=== PATIENT | male | born 1955 | race Caucasian/White ===

== ENCOUNTER → 2023-12-17 09:52 | Outpatient (REF) | payer MEDICARE, OTHER, SELFPAY ==
[2023-12-17 10:06] LABS: % Basophils 1.4 % (0-2); % Eosinophils 4.8 % (0-6); % Immature Granulocytes 7.6 % (0-0.5); % Lymphocytes 17.1 % (20.5-51.1); % Monocytes 10.8 % (1.7-9.3); % Neutrophils 58.3 % (42.2-75.2); Absolute Basophils 0.2 10^3/uL (0-0.2); Absolute Eosinophils 0.5 10^3/uL (0-0.7); Absolute Immature Granulocytes 0.9 10^3/uL (0-0.05); Absolute Lymphocytes 1.9 10^3/uL (1.2-3.4); Absolute Monocytes 1.2 10^3/uL (0.1-0.6); Absolute Neutrophils 6.6 10^3/uL (1.4-6.5); Hematocrit 39.8 % (39.0-52.0); Hemoglobin 11.8 g/dL (13.0-18.0); Mean Corp Hgb Conc. 29.6 g/dL (33.0-37.0); Mean Corpuscular Hgb 25.5 pg (27.0-31.0); Mean Platelet Volume 9.3 fL (7.4-10.4); Nucleated Red Blood Cells % 0.9 % (-); Platelet Count 549 10^3/uL (130-400); Red Blood Cell Count 4.63 10^6/uL (4.70-6.10); Red Cell Dist. Width 24.5 % (11.5-14.5); White Blood Cell Count 11.3 10^3/uL (4.8-10.8)
== END ==
LOC: OIDL 09:52
PROVIDERS: ATTENDING PHYSICIAN Nurse Practitioner Family
DX: D75.839 Thrombocytosis, unspecified (principal); D50.9 Iron deficiency anemia, unspecified
CPT/HCPCS: 85025

== ENCOUNTER → 2024-01-28 09:54 | Outpatient (REF) | payer MEDICARE, OTHER, SELFPAY ==
[2024-01-28 11:28] LABS: % Basophils 1.3 % (0-2); % Eosinophils 3.9 % (0-6); % Immature Granulocytes 0.8 % (0-0.5); % Lymphocytes 15.2 % (20.5-51.1); % Monocytes 11.6 % (1.7-9.3); % Neutrophils 67.2 % (42.2-75.2); Absolute Basophils 0.1 10^3/uL (0-0.2); Absolute Eosinophils 0.3 10^3/uL (0-0.7); Absolute Immature Granulocytes 0.1 10^3/uL (0-0.05); Absolute Lymphocytes 1.3 10^3/uL (1.2-3.4); Absolute Neutrophils 5.7 10^3/uL (1.4-6.5); Hematocrit 43.1 % (39.0-52.0); Hemoglobin 13.7 g/dL (13.0-18.0); Mean Corp Hgb Conc. 31.8 g/dL (33.0-37.0); Mean Corpuscular Hgb 29.2 pg (27.0-31.0); Mean Corpuscular Volume 91.9 fL (80.0-94.0); Mean Platelet Volume 9.7 fL (7.4-10.4); Nucleated Red Blood Cells % 0 % (-); Platelet Count 447 10^3/uL (130-400); Red Blood Cell Count 4.69 10^6/uL (4.70-6.10); Red Cell Dist. Width 25.7 % (11.5-14.5); White Blood Cell Count 8.4 10^3/uL (4.8-10.8)
[2024-01-28 13:31] LABS: Iron 54 ug/dl (49-181)
[2024-01-28 13:40] LABS: Percent Saturation 13 % (20-50); Total Iron Binding Capacity 404 ug/dl (261-462)
[2024-01-28 13:51] LABS: Anisocytosis 2+; Hypochromasia 2+; Macrocytosis 2+; Normal RBC Morphology No; Ovalocytes 1+; Poikilocytosis 1+; Stomatocytes Moderate
[2024-01-28 13:55] LABS: Ferritin 20.8 ng/ml (17.9-464.0)
== END ==
LOC: REG 09:54
PROVIDERS: ATTENDING PHYSICIAN Internal Medicine Hematology & Oncology; FAMILY PHYSICIAN Emergency Medicine
DX: D75.839 Thrombocytosis, unspecified (principal); D50.9 Iron deficiency anemia, unspecified; D72.829 Elevated white blood cell count, unspecified
CPT/HCPCS: 36415; 82728; 83540; 83550; 85025

== ENCOUNTER → 2024-02-18 08:20 | Outpatient (REF) | payer MEDICARE, OTHER, SELFPAY | LOC: HWRAD 08:20 | PROVIDERS: ATTENDING PHYSICIAN Nurse Practitioner Family; FAMILY PHYSICIAN Emergency Medicine | DX: F17.210 Nicotine dependence, cigarettes, uncomplicated (principal) | CPT/HCPCS: 71271 ==

== ENCOUNTER 2024-03-18 02:56 | Inpatient (IN) | payer MEDICARE, OTHER, SELFPAY ==
[2024-03-17] VITALS (7 sets, daily range): BP systolic 127–152; BP diastolic 70–90; PULSE 99; BMI 27.3
[2024-03-17 21:10] LABS: % Basophils 0.7 % (0-2); % Eosinophils 3.6 % (0-6); % Immature Granulocytes 0.9 % (0-0.5); % Lymphocytes 10.2 % (20.5-51.1); % Monocytes 10.1 % (1.7-9.3); % Neutrophils 74.5 % (42.2-75.2); Absolute Basophils 0.1 10^3/uL (0-0.2); Absolute Eosinophils 0.6 10^3/uL (0-0.7); Absolute Immature Granulocytes 0.2 10^3/uL (0-0.05); Absolute Lymphocytes 1.6 10^3/uL (1.2-3.4); Absolute Monocytes 1.6 10^3/uL (0.1-0.6); Hematocrit 38.3 % (39.0-52.0); Hemoglobin 12.9 g/dL (13.0-18.0); Mean Corp Hgb Conc. 33.7 g/dL (33.0-37.0); Mean Corpuscular Hgb 29.7 pg (27.0-31.0); Mean Corpuscular Volume 88.2 fL (80.0-94.0); Mean Platelet Volume 9.6 fL (7.4-10.4); Nucleated Red Blood Cells % 0.1 % (-); Platelet Count 504 10^3/uL (130-400); Red Blood Cell Count 4.34 10^6/uL (4.70-6.10); White Blood Cell Count 16.1 10^3/uL (4.8-10.8)
--- NOTE | 2024-03-17 21:18 | ED.GENMED ---
History of Present Illness
General
Chief Complaint: Chest Pain
Time Seen by Provider: 03/17/24 21:18
Travel History
Have you had any contact with someone who has COVID-19?: No
Do you have any symptoms of coronavirus? Fever > 100 degrees, chills, cough, shortness of breath, sore throat, loss of taste or smell, muscle aches, or headache?: No
History of Present Illness
History of Present Illness:
HPI: Patient presents with chest discomfort�he came in by ambulance and EMS gave nitroglycerin as well as aspirin. He states the pain worsens with a deep breath on the left side. He states he has an upcoming MRI of the chest. He feels somewhat
short of breath. However he uses CPAP for history of COPD but does not use oxygen at home.
EXAM:
GENERAL: The patient appears somewhat short of breath and uncomfortable
HEENT: Moist oral mucosa
CARDIOVASCULAR: No murmurs, normal heart rate, regular rhythm, No chest wall tenderness
PULMONARY: Mild respiratory distress, decreased breath sounds equally with wheeze noted
ABDOMEN: Soft with no peritoneal signs, no tenderness
NEUROLOGIC: Excellent strength all extremities, no coordination deficits
PSYCHIATRIC: Appropriate mental status, normal insight and judgement
EXTREMITIES: Nontender, no edema, moves all extremities equally, no calf tenderness
SKIN: No rash, no lesions
TIME OF INITIAL ENCOUNTER: 9:25 PM
NUMBER AND COMPLEXITY OF PROBLEMS ADDRESSED AT THE ENCOUNTER
� Chronic conditions affecting care: High blood pressure, hyperlipidemia, smoker, iron deficiency anemia, alcohol abuse
� Acute Exacerbation and/or Progression of Chronic Illness: This is an acute problem
� Differential Diagnosis includes: COPD exacerbation, PE, heart failure, ACS
AMOUNT AND/OR COMPLEXITY OF DATA TO BE REVIEWED AND ANALYZED
� I performed an independent evaluation of and my interpretation is:
EKG: Sinus 104, leftward axis deviation, poor R wave progression, this is new in comparison to 12/30/2021
CT:
X-rays:
Laboratory Studies: White count 16.1, hemoglobin 12.9, MCV 88, chemistries relatively unremarkable, BNP and troponin are low
Other:
� Review of other/old records: I reviewed records, the patient has had thrombocytosis in the past
� Clinical information was obtained by an independent historian: None needed
� Prescriptions/Medications Considered but not given:
� Further testing considered but not performed:
RISK OF COMPLICATIONS AND/OR MORBIDITY OR MORTALITY OF PATIENT MANAGEMENT
� Social determinants of health affecting care: Lives at home, drinks daily and smokes up to 2 packs a day daily
� Discussion with other providers: Discussed CT with vision radiologist. Hospitalist for admission as he was hypoxic before BiPAP.
� Escalation of care including admission/observation vs risk of discharge considered: The patient is found to be hypoxic with room air sats in the 80%'s. He was placed on supplemental oxygen�this is new for him he does not use
oxygen at home but does use CPAP. He states he does have a history of COPD. Given the worsening hypoxia with pleuritic chest pain, PE study has been ordered. The patient's CT is concerning for mass in the thoracic vertebrae. I suspect the
hypoxia is related to COPD.
Past History
Past History
ED Past Medical History: CHF, HTN, Hypercholesterolemia and Other
ED Past Surgical History: Negative Cardiac
Social History
Tobacco: Smoker
Alcohol: Daily
Drug: None
Personal:
Living: with family
Employment: Retired
Family History
Family History: Hypertension
Phy Exam
Physical Exam
Physical Exam:
See HPI
Scores
Heart Score for Chest Pain Patients
STEMI patient?: Not applicable
Course
Orders/Labs/Results
Orders:
Orders
03/17/24 20:59
Electrocardiogram (*1) Urgent
Reason for Study: Chest Pain
EKG- Treatment ONCE
03/17/24 21:02
Complete Blood Count/With Diff Urgent
Comprehensive Metabolic Panel Urgent
NT-proBNP Urgent
Troponin I Urgent
03/17/24 21:23
Ipratropium/Albuterol Sulfate [Duoneb] 3 ml INH R NOW ONE
Ipratropium/Albuterol Sulfate [Duoneb] 3 ml INH R NOW ONE
MethylPREDNISolone PF [Solu-Medrol Pf] 125 mg IV NOW STA
03/17/24 21:57
HYDROmorphone [Dilaudid] 0.5 mg IV NOW STA
03/17/24 22:51
Ipratropium/Albuterol Sulfate [Duoneb] 3 ml INH R NOW ONE
03/17/24 23:14
Bipap [RESP] Urgent
Patient to use own unit?: No
Inspiratory Pressure (cm H2O): 12
Expiratory Pressure (cm H2O): 5
03/18/24 00:30
CT Chest Pe Study Urgent
Reason For Exam: L pain; hypoxia
Abnormal Lab Results
03/17/24
21:02
WBC 16.1 H 10^3/uL
(4.8-10.8)
RBC 4.34 L 10^6/uL
(4.70-6.10)
Hgb 12.9 L g/dL
(13.0-18.0)
Hct 38.3 L %
(39.0-52.0)
RDW 18.0 H %
(11.5-14.5)
Plt Count 504 H 10^3/uL
(130-400)
Abs Immat Gran (auto) 0.2 H 10^3/uL
(0-0.05)
Absolute Neuts (auto) 12.0 H 10^3/uL
(1.4-6.5)
Absolute Monos (auto) 1.6 H 10^3/uL
(0.1-0.6)
Immature Gran % 0.9 H %
(0-0.5)
Lymphocytes % 10.2 L %
(20.5-51.1)
Monocytes % 10.1 H %
(1.7-9.3)
Sodium 133 L mmol/L
(135-145)
Chloride 97 L mmol/L
(98-107)
Creatinine 0.6 L mg/dL
(0.7-1.3)
03/17/24 21:02
03/17/24 21:02
Vital Signs
Initial and Last Documented VS:
Initial Vital Signs
Temp Pulse Resp BP Pulse Ox
98.0 F 107 22 149/90 88
03/17/24 21:00 03/17/24 21:00 03/17/24 21:00 03/17/24 21:00 03/17/24 21:00
Last Documented Vital Signs
Temp Pulse Resp BP Pulse Ox
98.0 F 85 17 103/53 96
03/17/24 21:00 03/18/24 01:15 03/18/24 01:15 03/18/24 01:00 03/18/24 01:15
*Pulse Oximetry
Patient hypoxic: yes
*Critical Care Note
Total Time (30-74mins, 75-104mins- exclusive of procedures): 60min
comment:
The patient is hypoxic. He was given BiPAP. Suspect hypoxia related to COPD. Mass noted on the thoracic spine which appears to be worsening. He was given narcotic analgesia. Vital signs closely monitored while on BiPAP.
ED Attending Note
-
Portions of this chart may have been created with voice recognition software.� Occasional wrong word or��sound alike� substitutions may have occurred due to the inherent limitations of voice recognition software.
Discharge Plan
Departure
Patient Disposition: Admit
Date of Disposition: 03/18/24
Time of Disposition: 01:49
Presentation/result/management discussed w/ accepting MD/DO: Hospitalist
Discharge Problem:
Mass of thoracic structure
Prescriptions:
No Action
atorvastatin 40 MG tablet
40 mg PO QPM
lisinopril-hydrochlorothiazide 1 EACH tablet
1 tab PO DAILY
aspirin 81 MG tablet,delayed release (DR/EC)
81 mg PO DAILY 30 Days Qty: 30 0RF
ferrous sulfate [FeroSul] 325 MG tablet
325 mg PO DAILY 30 Days Qty: 30 0RF
Anoro Ellipta 62.5-25 mcg/actuation Blister With Device
1 inh INHALATION DAILY
albuterol sulfate 1 PUFF HFA aerosol inhaler
1 puff inhalation R Q4HPRN PRN (Reason: SOB/WHEEZING )
Referrals:
Mya Jama MD [Family Provider] -
Interventions
Interventions:
*Risk Screen - Suicide Last Done: 03/17/24 21:00
*General Assessment Last Done: 03/17/24 21:00
*Neglect/Abuse Screening Last Done: 03/17/24 21:00
ED- Fall Risk Assessment Last Done: 03/17/24 23:14
*ED COVID-19 Vaccine History Last Done: 03/18/24 01:27
ED- Cardiac Assessment Last Done: 03/17/24 23:14
Discharge Date and Time
Print Language: MOSOTHO
[2024-03-17] MEDS: DUONEB 3 ML INH ×3 (21:25→22:52)
[2024-03-17] MEDS: SOLU-MEDROL PF 125 MG IV (21:25)
[2024-03-17 21:28] LABS: ALT (SGPT) 24 U/L (0-50); AST (SGOT) 27 U/L (17-59); Albumin 4.7 g/dl (3.5-5.0); Alkaline Phosphatase 120 U/L (38-126); Blood Urea Nitrogen 15 mg/dl (9-20); Calcium 10.1 mg/dl (8.4-10.2); Carbon Dioxide 23 mmol/L (22-30); Chloride 97 mmol/L (98-107); Estimated Creatinine Clearance 114 ml/min; Glucose 90 mg/dl (70-99); Potassium 4.3 mmol/L (3.5-5.1); Sodium 133 mmol/L (135-145); Total Bilirubin 0.3 mg/dl (0.2-1.3); Total Protein 7.6 g/dl (6.3-8.2); eGFR > 60.00
[2024-03-17 21:31] LABS: NT-proBNP 131 pg/ml; Troponin I < 0.012 ng/ml
[2024-03-17] MEDS: DILAUDID 0.5 MG IV (22:04)
[2024-03-18] VITALS (13 sets, daily range): BP systolic 99–162; BP diastolic 47–85; PULSE 76–99; O2SAT 92; BMI 25.5
[2024-03-18] MEDS: DECADRON 4 MG IV ×2 (03:29→17:36)
[2024-03-18] MEDS: MORPHINE SULFATE 2 MG IV (03:57)
[2024-03-18 04:42] LABS: Troponin I < 0.012 ng/ml
[2024-03-18 05:04] LABS: TSH Reflex To Free T4 0.51 uIU/ml (0.47-4.68)
[2024-03-18 05:29] LABS: Hematocrit 35.9 % (39.0-52.0); Hemoglobin 11.8 g/dL (13.0-18.0); Mean Corp Hgb Conc. 32.9 g/dL (33.0-37.0); Mean Corpuscular Hgb 29.9 pg (27.0-31.0); Mean Corpuscular Volume 91.1 fL (80.0-94.0); Mean Platelet Volume 9.8 fL (7.4-10.4); Platelet Count 459 10^3/uL (130-400); Red Blood Cell Count 3.94 10^6/uL (4.70-6.10); White Blood Cell Count 15.4 10^3/uL (4.8-10.8)
--- NOTE | 2024-03-18 05:36 | HPS.HSE ---
Family Physician
-
Family Physician: Mya Jama MD
Chief Complaint
-
Chest pain / SOB
History of Present Illness
Patient is a 69y M with PMH significant for COPD, NELLY and hypertension who presents to ED complaining of left-sided chest pain and SOB. Patient states that his symptoms started last PM. He had steadily worsening SOB and this evening called EMS
and was brought to the ED for further evaluation and treatment.
Patient uses CPAP at home nightly and states that he has been compliant. He is not on home oxygen at baseline.
He denies any associated diaphoresis, nausea, abdominal pain, etc. He denies any significant cough, mucus production, fever or chills.
Patient states that he has had bilateral lower rib discomfort for the past several weeks.
Patient also notes that he is scheduled for an outpatient MRI later this AM for evaluation of a 'cystic' lesion that has been incidentally noted on prior imaging.
Medical History
Past Medical History
Past Medical History: Reports Other
Additional Past Medical History:
Hypertension
COPD
NELLY on CPAP
AVM / GI bleeding
Aortic Stenosis
Alcohol Use Disorder
Iron Deficiency Anemia
Past Surgical History: Reports Other
Additional Past Surgical History:
Right Knee Arthroscopy
Social History
Tobacco: Smoker (Current every day smoker. > 50 pack years total)
Alcohol: Daily (Daily EtOH use of 5-6 beers every day. Last drink was today.)
Drug: None
Family History
Family History: Other (Brother: [place] Brother: CVA Mother: Longevity)
Allergies / Home Medications
Allergies reflects when Allergies were last updated in [facility].
Home Medications with original date entered in [facility]
Allergy/Medication List:
Allergies
Allergy/AdvReac Type Severity Reaction Status Date / Time
No Known Allergies Allergy Verified 03/17/24 21:00
Home Medications
atorvastatin 40 mg tablet 40 mg PO QPM High cholesterol 12/29/21
lisinopril 10 mg-hydrochlorothiazide 12.5 mg tablet 1 tab PO DAILY Blood pressure 12/29/21
aspirin 81 mg tablet,delayed release 81 mg PO DAILY 30 days #30 tabs 01/05/22
ferrous sulfate 325 mg (65 mg iron) tablet (FeroSul) 325 mg PO DAILY 30 days #30 tabs 01/05/22
albuterol sulfate 90 mcg/actuation aerosol inhaler 1 puff inhalation R Q4HPRN PRN SOB/WHEEZING 03/18/24
umeclidinium 62.5 mcg-vilanterol 25 mcg/actuation powdr for inhalation (Anoro Ellipta) 1 inh inhalation DAILY 03/18/24
Review of Systems
-
History Source: Patient
A 12 point ROS was completed and negative except as noted: Yes
Constitutional: Denies Fever or Chills
EENT: Denies Sore Throat
Respiratory: Reports Trouble Breathing; Denies Cough or Hemoptysis
Cardiac: Reports Chest Pain; Denies Diaphoresis, Palpitations or Syncope
Abdomen/GI: Denies Abdominal Pain, Nausea, Vomiting or Diarrhea
: Denies Dysuria or Flank Pain
Musculoskeletal: Denies Joint Pain or Edema
Neurological: Denies Dizzy or Headache
Psych: Denies Depression or Anxiety
Physical Exam
Vital Signs
Vital Signs
Temp Pulse Resp BP Pulse Ox
98.0 F 91 14 142/82 95
03/17/24 21:00 03/18/24 04:00 03/18/24 04:00 03/18/24 03:51 03/18/24 04:00
Physical Exam
General: Other (69y M in no acute distress. Becomes acutely dyspneic with sitting up / moving about in the bed.)
HEENT: Other (Thick neck, MMM.)
Respiratory: Other (Bibasilar rales about 1/4 up. Few scattered expiratory wheezes.)
Cardiac: S1/S2, Regular Rhythm and Murmur (II/ PRINCE)
GI: Other (Softly distended. Not tender. Pos BS.)
Musculoskeletal: No Clubbing, No Cyanosis and No Edema
Neuro: AO x 3 and Nonfocal/grossly intact
Laboratory Results
-
Laboratory Results
Total Bilirubin 0.3 mg/dl (0.2-1.3) 03/17/24 21:02
AST 27 U/L (17-59) 03/17/24 21:02
ALT 24 U/L (0-50) 03/17/24 21:02
Alkaline Phosphatase 120 U/L (38-126) 03/17/24 21:02
Troponin I < 0.012 ng/ml 03/18/24 03:29
Impression/Plan
-
A/P: Patient is a 69y M with PMH significant for tobacco and alcohol use disorders, HTN and COPD who presents to ED complaining of left side chest pain and SOB.
COPD with Acute Exacerbation
Acute Hypoxemic Respiratory Insufficiency
Ongoing Tobacco Use Disorder
- Admit for further evaluation and treatment.
- Initial SpO2 in the low 80s on room air. Has been stable on O2 / CPAP here in the ED since arrival.
- Denies cough, fevers, etc. Appears comfortable at rest - but significant dyspnea with minimal activity.
- IV steroid for now for suspected COPD exacerbation
- Nebs, O2 support, etc.
- Pulmonary evaluation.
- Follow for clinical improvement.
Chest Pain
- Left sided chest pain accompanying SOB.
- EKG is without acute ischemic changes.
- Initial troponin is undetectable.
- Monitor on telemetry.
- Follow serial troponin.
- Continue daily ASA
- Follow for any new / worsening symptoms.
Right Paraspinal Lesion
- Patient with approximately 7 x 5 x 6 cm R paraspinal lesion.
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
- Same lesion was first noted on abdominal MRI in 10/2023 and was described as cystic at that time.
- It was again seen 02/17/[address] Chest and patient is scheduled for MRI for further evaluation.
- Will check MRI as originally planned.
- Neurosurgery evaluation given spinal involvement and apparent vertebral erosions noted on Vision report.
- Abnormality is contralateral to patent's presenting pain.
Benign Hypertension
- Stable. BP is controlled. Hold lisinopril / HCT for now.
- Adjust meds if needed for BP control.
NELLY
- Stable. Continue nightly CPAP.
Alcohol Use Disorder
- Patient reports 5-6 beers per day on average.
- Follow MSAS protocol and monitor for signs of withdrawal.
- Ativan PRN if any such signs develop.
- Replete thiamine, folate, etc.
DVT Prophylaxis: SCDs
Code Status: Full
[2024-03-18 06:10] LABS: Blood Urea Nitrogen 15 mg/dl (9-20); Calcium 9.5 mg/dl (8.4-10.2); Carbon Dioxide 21 mmol/L (22-30); Chloride 102 mmol/L (98-107); Estimated Creatinine Clearance 114 ml/min; Glucose 139 mg/dl (70-99); Potassium 4.8 mmol/L (3.5-5.1); Sodium 135 mmol/L (135-145); eGFR > 60.00
--- NOTE | 2024-03-18 07:40 | W.PN.HOSP.TC ---
Addendum entered and electronically signed by Julienne Palacio MD 03/18/24 08:05:
Lisinopril 10mg ordered; patient states this was increased to 20mg - continue lower dosing for now and monitor BP
Original Note:
Today's Communication/Plan
-
IV Decadron, Nebs
patient now off CPAP with SpO2 high 80's
Pulm consult
MRI
Assessment / Plan
Assessment / Plan
A/P: Patient is a 69y M with PMH significant for tobacco and alcohol use disorders, HTN and COPD who presents to ED complaining of left side chest pain and SOB admitted for COPD exacerbation. Imaging with finding of right paraspinal lesion with
plans for expedited work-up with MRI inpatient.
COPD with Acute Exacerbation
Acute Hypoxemic Respiratory Insufficiency
Ongoing Tobacco Use Disorder
- admitted to telemetry
- Initial SpO2 in the low 80s on room air placed on CPAP. Patient now off BiPAP, RN to place on [place] SpO2 88% RA
- Denies cough, fevers, etc. Appears comfortable at rest - but significant dyspnea with minimal activity.
- continue IV Decadron 4mg q 12 hours
- standing nebs and PRN
- consult Pulm
Chest Pain
- Left sided chest pain accompanying SOB. He feels its improving with nebulizers but still presents
- CTA with motion artifact but no PE up to proximal segmental branches. will obtain LE US Doppler. with improving pain with nebulizers reassuring likely related to COPD
- EKG is without acute ischemic changes.
- Trop neg x 2
- Monitor on telemetry.
- Continue daily ASA
Right Paraspinal Lesion
- Patient with approximately 7 x 5 x 6 cm R paraspinal lesion.
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
- Same lesion was first noted on abdominal MRI in 10/2023 and was described as cystic at that time.
- It was again seen 02/17/[address] Chest and patient is scheduled for MRI for further evaluation.
- Will check MRI as originally planned.
- Neurosurgery evaluation given spinal involvement and apparent vertebral erosions noted on [facility] report.
- Abnormality is contralateral to patent's presenting pain.
Benign Hypertension
- Stable. BP is controlled. Hold lisinopril / HCT for now.
- Adjust meds if needed for BP control.
NELLY
- Stable. Continue nightly CPAP.
Alcohol Use Disorder
- Patient reports 5-6 beers per day on average.
- Follow MSAS protocol and monitor for signs of withdrawal.
- Ativan PRN if any such signs develop.
- Replete thiamine, folate, etc.
DVT Prophylaxis: SCDs
Code Status: Full
Anticipated Discharge: 24 - 48 hours
Subjective/Interval History
-
Date of Service: March 18, 2024
patient states he thinks he is feeling better now and that breathing treatments help but still feels some pleuritic chest pain left side
Objective Data
-
Labs:
Laboratory Results
03/17/24 03/18/24
21:02 05:21
WBC 16.1 H 15.4 H
Hgb 12.9 L 11.8 L
Hct 38.3 L 35.9 L
Plt Count 504 H 459 H
Sodium 133 L 135
Potassium 4.3 4.8
Chloride 97 L 102
Carbon Dioxide 23 21 L
BUN 15 15
Creatinine 0.6 L 0.5 L
Glucose 90 139 H
Calcium 10.1 9.5
Total Bilirubin 0.3
AST 27
ALT 24
Alkaline Phosphatase 120
Vital Signs:
Vital Signs
Temp Pulse Resp BP Pulse Ox
97.9 F 91 14 142/82 95
03/18/24 04:05 03/18/24 04:00 03/18/24 04:00 03/18/24 03:51 03/18/24 04:00
I&O
03/17/24 03/18/24 03/19/24
06:59 06:59 06:59
Output Total 800 / 800
Balance -800 / -800
Review of Systems
-
History Source: Patient
All other systems: Reviewed and negative
Physical Exam
-
General: No Apparent Distress and Conversant
HEENT: PERRLA
Respiratory: Other (decreased breath sounds, no wheezing )
Cardiac: Regular Rhythm and S1/S2
GI: Soft and Nontender
Musculoskeletal: No Edema
Skin: Warm and Dry; Negative Rash
Neuro: AO x 3
Psych: Calm
Data Reviewed
-
Diagnostic Radiology: Report Reviewed by me
Labs: Labs Reviewed by me
[2024-03-18] MEDS: DUONEB 3 ML INH ×4 (08:19→19:51)
[2024-03-18] MEDS: FOLVITE 1 MG PO (09:35)
[2024-03-18] MEDS: ASPIR LOW (ENTERIC COATED) 81 MG PO (09:36)
[2024-03-18] MEDS: ZESTRIL 10 MG PO (09:36)
[2024-03-18] MEDS: THIAMINE INJECTION 200 MG IV ×2 (09:39→20:49)
--- NOTE | 2024-03-18 10:05 | CON.PUL ---
Consultation
Consultation Request
Date/Time Consultation Requested: 03/18/2024302
Date/Time Consultation Performed: 03/18/2024 - 954
Requesting Provider: Dr. Chen
Performing Provider: Dr. Garcia
Reason for Consultation: Hypoxia/COPD/Chest Mass
Medical History
-
Chief Complaint: Left-sided chest pain
History of Present Illness:
69-year-old male active tobacco smoker with mild COPD, severe NELLY on CPAP, hypertension, hyperlipidemia, aortic stenosis, history of GI bleed due to AVMs, alcohol use disorder and CHF who presents with left-sided chest pain that radiated to L UE.
CP started 1 night prior to arrival. Pain got increasingly worse so he came to the ER. He apparently was being worked up as an outpatient for right-sided chest pain with an upcoming MRI scheduled for 03/18/2024. In the ER patient was saturating 88%
on 6 L/min nasal cannula. He was tachycardic to 107 bpm, tachypneic to 22 breaths/min, BP: 149/90 and he was afebrile to 98 �F. Labs showed leukocytosis to 16.1, mild anemia to 12.9, increased platelet count of 504, mildly hyponatremic to 133,
negative troponin with a normal proBNP (131), and TSH also normal at 0.51. A CT of the chest was done showing no acute PE, with bilateral lower lobe dependent consolidation (R >L), with a large right-sided paraspinal soft tissue mass seen with
reactive changes adjacent to the vertebral body at T7, suspicious for a malignant process. This was also seen on a prior CT chest from 02/18/2024. Given the patient's history of COPD with acute hypoxia, pulmonary service consulted for additional
recommendations.
When I saw the patient he was in bed, in no acute distress. He says that his left-sided chest pain is much better now. He admitted that his shortness of breath has been worsening over the last 1 month. He is currently on 6 L/min nasal cannula and
he does not wear oxygen at home. He has been wearing his CPAP prior to this admission, but says that he feels that the pressure was too much. He currently denies any headache, abdominal pain, nausea, fevers or chills.
Of note patient follows with us in the [facility] office with Veena Duncan - last office visit on 01/14/2024. He has COPD on Anoro and uses albuterol as needed which is rare. He has mild COPD (post-BD FEV1: 2.68L/89%) with borderline hyperinflation (TLC:
119%) and severe gas exchange capacity defect (DLco: 39%). At the last office visit he felt that his respiratory status was stable however he felt that the Anoro was not helping him. Samples of Trelegy 100mcg was provided to the patient with
instructions to call our office if he felt that this inhaler was more noticeable with improvement. Patient was using CPAP for history of severe NELLY with a residual AHI 3.5. He felt that the pressure was too high and the pressure was lowered to 8
cmH2O from an average pressure of 11.5 cmH2O. He was advised to follow-up in 6 months with a 6MWT at that time.
PMHx: COPD, severe NELLY, hypertension, hyperlipidemia, fatty liver disease, colonic polyps, history of sigmoid diverticulosis, history of symptomatic anemia with AVMs, aortic stenosis, tobacco use disorder of 1 PPD, alcohol use disorder, hiatal
hernia, CHF
PSHx: Endoscopy (December 2021)
Past Medical History
Past Medical History: Other (Above as per HPI)
Past Surgical History: Other (Above as per HPI)
Social History
Tobacco: Smoker (Smokes 1 PPD; 83-[id number]-gqpx history)
Alcohol: Daily
Drug: None
Family History
Family History: CAD (Brother - AR) and Other (Brother - Hx of CVA)
Allergies / Home Medications
Allergies
Allergy/AdvReac Type Severity Reaction Status Date / Time
No Known Allergies Allergy Verified 03/17/24 21:00
Home Medications
�Medication �Instructions �Recorded �Confirmed �Last Taken �Type
atorvastatin 40 mg tablet 40 mg PO QPM High cholesterol 12/29/21 03/18/24 01/19/22 History
lisinopril 10 1 tab PO DAILY Blood pressure 12/29/21 03/18/24 01/20/22 History
mg-hydrochlorothiazide 12.5 mg
tablet
aspirin 81 mg tablet,delayed 81 mg PO DAILY 30 days #30 tabs 01/05/22 03/18/24 01/20/22 Rx
release
ferrous sulfate 325 mg (65 mg 325 mg PO DAILY 30 days #30 tabs 01/05/22 03/18/24 01/20/22 Rx
iron) tablet (FeroSul)
albuterol sulfate 90 mcg/actuation 1 puff inhalation R Q4HPRN PRN 03/18/24 03/18/24 Unknown History
aerosol inhaler SOB/WHEEZING
umeclidinium 62.5 mcg-vilanterol 1 inh inhalation DAILY 03/18/24 03/18/24 Unknown History
25 mcg/actuation powdr for Lung/Breathing Issues
inhalation (Anoro Ellipta)
Review of Systems
-
History Source: Patient
All other systems: Negative unless noted
Vitals / Labs / Diagnostic Testing
Vital Signs
Temp Pulse Resp BP Pulse Ox
97.9 F 99 21 150/69 90
03/18/24 04:05 03/18/24 11:09 03/18/24 11:09 03/18/24 09:37 03/18/24 11:09
Lab Data
03/18/24 05:21
03/18/24 05:21
Diagnostic Testing:
Physical Exam
-
HEENT: Normocephalic and Anicteric
Cardiovascular: S1/S2, Peripheral Edema (Negative) and Other (Distant heart sounds)
Respiratory: Wheeze (Negative), Rales (Bibasilar), Rhonchi (Negative) and Non-Labored Respirations
GI: Soft, Non Distended and Non Tender
Neurology: AO x 3
Skin: Warm and Dry
General: Comfortable and Sweats (Negative)
Assessment
-
Assessment: 69-year-old male active tobacco smoker with mild COPD, severe NELLY on CPAP, hypertension, hyperlipidemia, aortic stenosis, history of GI bleed due to AVMs, alcohol use disorder and CHF who presents with left-sided chest pain that
radiated to L UE. CP started 1 night prior to arrival. Pain got increasingly worse so he came to the ER. He apparently was being worked up as an outpatient for right-sided chest pain with an upcoming MRI scheduled for 03/18/2024. In the ER patient
was saturating 88% on 6 L/min nasal cannula. He was tachycardic to 107 bpm, tachypneic to 22 breaths/min, BP: 149/90 and he was afebrile to 98 �F. Labs showed leukocytosis to 16.1, mild anemia to 12.9, increased platelet count of 504, mildly
hyponatremic to 133, negative troponin with a normal proBNP (131), and TSH also normal at 0.51. A CT of the chest was done showing no acute PE, with bilateral lower lobe dependent consolidation (R >L), with a large right-sided paraspinal soft
tissue mass seen with reactive changes adjacent to the vertebral body at T7, suspicious for a malignant process. This was also seen on a prior CT chest from 02/18/2024. Given the patient's history of COPD with acute hypoxia, pulmonary service
consulted for additional recommendations.
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
alcohol use disorder, hiatal hernia, CHF
Impression:
#Acute respiratory failure with hypoxia
#COPD with acute exacerbation due to RLL pneumonia
#RLL Pneumonia with bibasilar atelectasis
#Abnormal CT chest with bibasilar consolidation (R >L), with large right-sided paraspinal soft tissue mass suspicious for malignant process
#Left-sided chest pain - non-anginal and it is likely referred pain from paraspinal soft tissue mass
#Mild hypochloremic, hyponatremia
#Leukocytosis
#Severe NELLY (AHI: 41.3 with stephan SpO2 72% via baseline HSAT in January 2023) on CPAP
#Mild COPD with borderline hyperinflation and severe gas exchange capacity defect/severe panlobular emphysema
#Active tobacco use disorder
#Alcohol use disorder
Plan:
- Continue systemic steroids and wean as tolerated � currently on Decadron 4 mg IV q12hr
- Continue with DuoNebs QID with prn doses in between
- Follow up MRI T-spine and he will likely need tissue biopsy depending on MRI findings
- Maintain SpO2 >88-94% with supplemental O2 as needed
- Incentive spirometer encouraged
- Will resume Symbicort and Spiriva with prn Duonebs
- Start Abx with rocephin x 7 days and azithro x 5 days (QTc: 429ms)
- Check infectious workup with blood and sputum Cx; check urine antigens for legionella and S pneumonia
- Continue CPAP with sleep - given he has used 8cmH2O at home but feels as if the pressure is 'too low,' I will use [id number] while hospitalized
- Thiamine, folic acid and MVN
- MSAS
- Nicotine patch
- Trend sNa and sCl levels
- Trend WBC
- Pain control
- Replete electrolytes with K>4, Mg>2
- Maintain euglycemia with goal BG >100 and <180
- DVT ppx
Pulmonary service will continue to follow along. We will ensure that patient sees us after discharge in the [facility] office. He did have a follow-up appointment scheduled with Dr. Smith for 03/20/2024, but this will need to be rescheduled as he will
likely still be hospitalized here at that point.
Total time spent today was 55 minutes for this encounter. Time includes reviewing laboratory test/imaging results, reviewing pertinent medical records, obtaining and reviewing medical history, performing an appropriate exam, ordering medications,
tests and procedures. Time also includes documentation of this encounter, coordinating patient care and communicating with other healthcare professionals. Total time does not include separately billed tests performed on this date of service.
Data:
CTA Chest 03-18-2024:
1. No evidence of pulmonary embolism.
2. Bilateral lower lobe dependent consolidation (right greater than left), new from prior. Findings may represent atelectasis and/or pneumonia.
3. Redemonstration of large right-sided paraspinal soft tissue mass at the mid-thoracic level with new appearance of adjacent T7 vertebral body reactive changes, suspicious for malignant process. The patient is scheduled for MRI.
Lower Extremity US 03-18-2024: No evidence of deep venous thrombosis in the bilateral lower extremities
[2024-03-18] MEDS: NICODERM TRANSDERMAL 21 MG TRANSDERM ×2 (11:16→20:48)
[2024-03-18 12:05] LABS: Troponin I < 0.012 ng/ml
--- NOTE | 2024-03-18 14:48 | CON.NS ---
Documented by User: Dia Borrero PA-C 03/18/24 15:00
Chief Complaint
-
SOB
History of Present Illness
Patient is a 69y M with PMH significant for COPD, NELLY and hypertension who presents to ED complaining of left-sided chest pain and SOB. Patient states that his symptoms started last evening. He had steadily worsening SOB and this evening called
EMS and was brought to the ED for further evaluation and treatment. Imaging was obtained and demonstrated a right-sided paraspinal soft tissue mass at the mid-thoracic level with new appearance of adjacent T7 vertebral body. Neurosurgery was
consulted for input. Patient states he has had ongoing back pain for several months that has not changed. Symptom are worse with activity. He had presented to his PCP about his symptoms. He was to undergo an MRI this am, however he was admitted to
the hospital. He states he smokes at least 1ppd and has been doing so for at least 50 years. He denies any radicular pain, numbness/tingling. He denies any weakness in his LE. he denies any difficulty with bowel/bladder.
Review of Systems
-
History Source: Patient
All other systems: Reviewed and negative
Medication and Allergies
Home Medications
Home Medications
�Medication �Instructions �Recorded
atorvastatin 40 mg tablet 40 mg PO DAILY High cholesterol 12/29/21
aspirin 81 mg tablet,delayed 81 mg PO DAILY 30 days #30 tabs 01/05/22
release
acetaminophen 500 mg tablet 1,000 mg PO BIDPRN PRN mild pain 03/18/24
(Tylenol Extra Strength)
famotidine 20 mg tablet 20 mg PO DAILY 03/18/24
ferrous sulfate 325 mg (65 mg 325 mg PO Q48H@0800 03/18/24
iron) tablet (iron)
fluticasone fur. 100 mcg-umeclid 1 inh inhalation R DAILY 03/18/24
62.5 mcg-vilant 25 mcg
inhalat.powder (Trelegy Ellipta)
lisinopril 20 1 tab PO DAILY 03/18/24
mg-hydrochlorothiazide 12.5 mg
tablet
multivitamin 1 tab PO DAILY 03/18/24
naproxen sodium 220 mg tablet 220 mg PO BID PRN mild pain 03/18/24
(Aleve)
Allergies
Allergies
Allergy/AdvReac Type Severity Reaction Status Date / Time
No Known Allergies Allergy Verified 03/17/24 21:00
Physical Exam
-
Exam:
VSS
AA &O xs 3
CN 2-12 grossly intact
Speech: clear/fluent
EOMI
HEENT: AT/NC
motor; 5/5 xs all extremities
sensation intact to crude touch
skin: no rashes/lesions
cardiac: no swelling/edema RRR
Lungs: non labored breathing
Imaging:
CT Chest imaging and report reviewed
Exams: CT Chest Pe Study
Contrast-enhanced CTA of the chest 03/18/2024 12:00 AM
History: Chest pain
Comparison: CT chest 02/18/2024
Technique: Contrast-enhanced CT of the chest with thin section, early arterial phase images according to the pulmonary embolism protocol. Patient received nonionic contrast. Sagittal and coronal reconstructed images are obtained. 3-D reconstruction
was performed with an independent workstation to better delineate the clinically suspected abnormality on CT of the pulmonary arteries. Automatic exposure control radiation dose reduction technology was utilized.
Findings:
No filling defects in the pulmonary arteries to suggest pulmonary embolism.
No thoracic aortic aneurysm. Moderate centrilobular emphysema redemonstrated. Bilateral lower lobe dependent consolidation (right greater than left), new from prior. No pulmonary nodules, areas of airspace disease, pleural or pericardial effusions,
or enlarged lymph nodes in the thorax. Heart is not enlarged. Mild coronary artery calcifications.
Redemonstration of large right-sided paraspinal soft tissue mass at the midthoracic level measuring up to 6.8 x 6.1 x 7.2 cm with internal calcifications, similar to prior. New appearance of sclerosis and mild erosive change of the adjacent T7
vertebral body.
Visualized portion of the upper abdomen is unremarkable.
IMPRESSION:
1. No evidence of pulmonary embolism.
2. Bilateral lower lobe dependent consolidation (right greater than left), new from prior. Findings may represent atelectasis and/or pneumonia.
3. Redemonstration of large right-sided paraspinal soft tissue mass at the mid-thoracic level with new appearance of adjacent T7 vertebral body reactive changes, suspicious for malignant process. The patient is scheduled for MRI
Problems
-
Problem Status Onset Code
Mass of thoracic structure R22.2
Assessment / Plan
-
69 y/o m with large right-sided paraspinal soft tissue mass at the mid-thoracic level with new appearance of adjacent T7 vertebral body
--imaging reviewed with neurosurgery attending. No acute neurosurgical intervention indicated
--MRI Thoracic spine wwo contrast
--further recommendations pending review of imaging
--patient discussed with Dr. Mclean.

Documented by User: Marilu Mclean MD 03/18/24 15:50
Consultation
-
Date/Time Consultation Performed: 03/18/2024; 15:00
Performing Provider: Vinay
Problems
-
Problem Status Onset Code
Mass of thoracic structure R22.2
Assessment / Plan
-
69 y/o m with large right-sided paraspinal soft tissue mass at the mid-thoracic level with new appearance of adjacent T7 vertebral body
--imaging reviewed with neurosurgery attending. No acute neurosurgical intervention indicated
--MRI Thoracic spine wwo contrast
--further recommendations pending review of imaging
--patient discussed with Dr. Mclean.
Attending Attestation:
Patient's CT imaging reviewed and examination reviewed with neurosurgery PA. Agree with MRI thoracic spine with and without contrast to further evaluate.
Will follow.
[2024-03-18] MEDS: LIPITOR 40 MG PO (17:36)
[2024-03-18] MEDS: TYLENOL 650 MG PO ×2 (17:51→23:59)
[2024-03-18 18:19] LABS: Troponin I < 0.012 ng/ml
[2024-03-18] MEDS: SPIRIVA RESPIMAT 2.5 MCG INH (20:24)
[2024-03-18] MEDS: SYMBICORT 80/4.5 MCG INHALER 2 PUFF INH (20:32)
[2024-03-18] MEDS: ZITHROMAX 500 MG PO (20:49)
[2024-03-18] MEDS: ROCEPHIN 1000 MG IV (21:27)
[2024-03-18] MEDS: STERILE WATER FOR INJECTION 10 ML IV (21:27)
[2024-03-19] VITALS (7 sets, daily range): BP systolic 123–163; BP diastolic 71–80; PULSE 71–95; O2SAT 98; BMI 25.2
[2024-03-19] MEDS: DECADRON 4 MG IV ×2 (02:38→14:34)
[2024-03-19] MEDS: SPIRIVA RESPIMAT 2.5 MCG 2 PUFF INH (07:58)
[2024-03-19] MEDS: SYMBICORT 80/4.5 MCG INHALER 2 PUFF INH ×2 (07:58→19:12)
[2024-03-19 08:01] LABS: Procalcitonin < 0.05 ng/ml (0.0-0.25)
[2024-03-19] MEDS: ASPIR LOW (ENTERIC COATED) 81 MG PO (08:44)
[2024-03-19] MEDS: ZITHROMAX 250 MG PO (08:44)
[2024-03-19] MEDS: NICODERM TRANSDERMAL 21 MG TRANSDERM (08:45)
[2024-03-19] MEDS: THIAMINE INJECTION 200 MG IV ×2 (08:45→21:50)
[2024-03-19] MEDS: ZESTRIL 10 MG PO (08:45)
[2024-03-19] MEDS: FOLVITE 1 MG PO (08:45)
--- NOTE | 2024-03-19 12:40 | W.PN.PUL3 ---
Today's Communication / Plan
-
Antibiotics
Symbicort + Spiriva
M shyam
Thiamine/folate
Decadron and start prednisone taper tomorrow starting at 40 mg and reduce by 10 mg every fourth day until off
Defer paraspinal mass biopsy to neurosurgery
Assessment
-
Assessment: 69-year-old male active tobacco smoker with mild COPD, severe NELLY on CPAP, hypertension, hyperlipidemia, aortic stenosis, history of GI bleed due to AVMs, alcohol use disorder and CHF who presents with left-sided chest pain that
radiated to L UE. CP started 1 night prior to arrival. Pain got increasingly worse so he came to the ER. He apparently was being worked up as an outpatient for right-sided chest pain with an upcoming MRI scheduled for 03/18/2024. In the ER patient
was saturating 88% on 6 L/min nasal cannula. He was tachycardic to 107 bpm, tachypneic to 22 breaths/min, BP: 149/90 and he was afebrile to 98 �F. Labs showed leukocytosis to 16.1, mild anemia to 12.9, increased platelet count of 504, mildly
hyponatremic to 133, negative troponin with a normal proBNP (131), and TSH also normal at 0.51. A CT of the chest was done showing no acute PE, with bilateral lower lobe dependent consolidation (R >L), with a large right-sided paraspinal soft
tissue mass seen with reactive changes adjacent to the vertebral body at T7, suspicious for a malignant process. This was also seen on a prior CT chest from 02/18/2024. Given the patient's history of COPD with acute hypoxia, pulmonary service
consulted for additional recommendations.
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
alcohol use disorder, hiatal hernia, CHF
Impression:
#Acute respiratory failure with hypoxia
#COPD with acute exacerbation due to RLL pneumonia
#RLL Pneumonia with bibasilar atelectasis
#Abnormal CT chest with bibasilar consolidation (R >L), with large right-sided paraspinal soft tissue mass suspicious for malignant process
#Left-sided chest pain - non-anginal and it is likely referred pain from paraspinal soft tissue mass
#Mild hypochloremic, hyponatremia
#Leukocytosis
#Severe NELLY (AHI: 41.3 with stephan SpO2 72% via baseline HSAT in January 2023) on CPAP
#Mild COPD with borderline hyperinflation and severe gas exchange capacity defect/severe panlobular emphysema
#Active tobacco use disorder
#Alcohol use disorder
Plan:
- Continue systemic steroids and wean as tolerated � currently on Decadron 4 mg IV q12hr � can wean to prednisone tomorrow starting at 40 mg and reduce by 10 mg every fourth day until off
- Continue with DuoNebs QID with prn doses in between
-MRI T-spine shows a lobulated irregular enhancing, cystic signal intensity in the thoracic spine concerning for a neurogenic neoplasm. Defer to neurosurgery regarding if biopsy is needed inpatient versus outpatient versus continued monitoring
- Maintain SpO2 >88-94% with supplemental O2 as needed
- Incentive spirometer encouraged
- Continue Symbicort and Spiriva with prn Duonebs
- Continue Abx with rocephin x 7 days and azithro x 5 days (QTc: 429ms)
- Follow up infectious workup with blood and sputum Cx; negative urine antigens for both legionella and S pneumonia
- Continue CPAP with sleep - given he has used 8cmH2O at home but feels as if the pressure is 'too low,' continue [id number] while hospitalized, would titrate O2 bleed rate to maintain SpO2 >88%
- Thiamine, folic acid and MVN
- MSAS
- Nicotine patch
- Trend sNa and sCl levels
- Trend WBC
- Pain control
- Replete electrolytes with K>4, Mg>2
- Maintain euglycemia with goal BG >100 and <180
- DVT ppx
Pulmonary service will continue to follow along. We will ensure that patient sees us after discharge in the [facility] office. He did have a follow-up appointment scheduled with Dr. Smith for 03/20/2024, but this will need to be rescheduled as he will
likely still be hospitalized here at that point.
Total time spent today was 35 minutes for this encounter. Time includes reviewing laboratory test/imaging results, reviewing pertinent medical records, obtaining and reviewing medical history, performing an appropriate exam, ordering medications,
tests and procedures. Time also includes documentation of this encounter, coordinating patient care and communicating with other healthcare professionals. Total time does not include separately billed tests performed on this date of service.
Data:
MRI T-Spine 03-18-2024: There is a lobulated irregular enhancing, predominantly cystic signal intensity paraspinal mass in the thoracic spine, centered at the T7 level. 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
See above discussion. Main differential consideration of neurogenic neoplasm. With a degree of calcification, chondrosarcoma is also a consideration. Other less likely differential considerations are discussed above. Consider further evaluation with
biopsy.
CTA Chest 03-18-2024:
1. No evidence of pulmonary embolism.
2. Bilateral lower lobe dependent consolidation (right greater than left), new from prior. Findings may represent atelectasis and/or pneumonia.
3. Redemonstration of large right-sided paraspinal soft tissue mass at the mid-thoracic level with new appearance of adjacent T7 vertebral body reactive changes, suspicious for malignant process. The patient is scheduled for MRI.
Lower Extremity US 03-18-2024: No evidence of deep venous thrombosis in the bilateral lower extremities
Subjective Data
-
Date of Service:
Date of Service: March 19, 2024
Chief Complaint: Pulmonary Follow Up
Subjective:
Patient seen today at bedside. He is on room air breathing comfortably. Wore CPAP last night on 10 cmH2O bled with 6 L/min nasal cannula. He tolerated this well with no complaints this morning to no excessive burping, flatus, abdominal pain, no
excessive nasal facial pressure, morning headaches or dry mouth/nosebleeds. He also currently denies headache, chest pain, shortness of breath, fevers or chills.
Review of Systems
General: Other (Negative unless mentioned above)
Objective Data
Data Reviewed
Vital Signs / I&O / Oxygen:
Vital Signs
Temp Pulse Resp BP Pulse Ox
98.2 F 83 18 136/74 98
03/19/24 11:00 03/19/24 11:00 03/19/24 11:00 03/19/24 11:00 03/19/24 11:00
Intake and Output
03/18/24 03/19/24 03/20/24
06:59 06:59 06:59
Intake Total 480 / 480
Output Total 800 / 800 575 / 575
Balance -800 / -800 -95 / -95
SaO2 98
Nasal Cannula flow liters per 6
minute
Physical Exam
General: Respiratory Distress (Negative) and Comfortable
HEENT: Normocephalic and Anicteric
Cardiovascular: S1-S2, Peripheral Edema (Negative) and Other (Distant heart sounds)
Respiratory: Wheeze (Negative), Crackles (Bibasilar), Rhonchi (Negative) and Non-Labored Respirations
GI: Soft, Non Distended and Non Tender
Neurology: AO x 3 and Tremors (Negative)
Skin: Warm and Dry
Labs/Micro/Reports
Lab Data
03/18/24 05:21
03/18/24 05:21
Microbiology
03/18/24 23:35 Sputum Respiratory Culture - Final
03/18/24 23:35 Sputum Gram Stain - Final
03/18/24 23:39 Urine Legionella Urinary Antigen - Final
Negative for Legionella pneumophila Serogroup 1 antigen.
A negative result does not rule out the possiblity of
Legionella infection due to other serogroups or species of
Legionella. Clinical correlation is recommended.
03/18/24 23:39 Urine Streptococcus pneumoniae Antigen (M - Final
Negative for Streptococcus pneumoniae antigen.
A negative result does not exclude infection with
Streptococcus pneumoniae. Clinical correlation is
recommended.
--- NOTE | 2024-03-19 16:03 | CM ---
web production manager reviewed patient's chart and met with patient and patient lives with his mother in a 2 story home with 6 steps to enter, patient is independent with adl's and ambulation, patient has CPAP machine in home, patient was seen by physical
therapy and patient no longer needs oxygen. Patient has a prescription plan and uses [facility] pharmacy.
PCP: Mya Jama
Plan; Home when stable, no needs.
--- NOTE | 2024-03-19 16:40 | PN.CDI ---
CDI
- -
CDI:
Physician Documentation Request
Admit Date: 03/18/24 02:56
Dear Doctor
Please review the following and provide your response in the progress notes.
Clinical Indicators:
Pt admitted with COPD exacerbation RLL PNA
There is potentially conflicting documentation regarding respiratory diagnosis.
Documented per H&P and Progress note 03/18 , ' Acute Hypoxemic Respiratory Insufficiency..Initial SpO2 in the low 80s on room air placed on CPAP. Patient now off BiPAP, RN to place on NC SpO2 88% RA ...'
Documented per pulmonology consult,' Acute respiratory failure with hypoxia...'
Documented per ED, ' The patient appears somewhat short of breath and uncomfortable...PULMONARY: Mild respiratory distress, decreased breath sounds equally with wheeze noted....'
Documented per H&P,' Becomes acutely dyspneic with sitting up / moving about in the bed.)..Respiratory: Other (Bibasilar rales about 1/4 up. Few scattered expiratory wheezes.)....'
Documented per pulmonology consult, ' He is currently on 6 L/min nasal cannula and he does not wear oxygen at home.... In the ER patient was saturating 88% on 6 L/min nasal cannula. He was tachycardic to 107 bpm, tachypneic to 22 breaths/min...'
Per Vital signs pt currently on 6 LPM via NC sats as low as 82%
EMS report Pulse 106, Respirations 26 labored effort
Clarify which of the following accurately represents the patient's respiratory status:
Acute Hypoxic Respiratory Failure
Hypoxia- only
Other
Additional information for Respiratory Failure:
Recognized criteria for Respiratory Failure (Source: [facility] Sep 2013)
ABGs: (1 or more) Symptoms Please indicate type if known
1. p)2 <60 or RA SPO2 <91% on RA 1. Tachypnea, SOB, dyspnea Hypoxic
2. pCO2 50 and pH <7.35 2. Use of accessory muscles Hypercapnic
3. pO2 decrease of pCO2 increase by 3. Pallor or cyanosis Hypoxic and Hypercapnic
10 mmHg from baseline if known 4. Anxiety or restlessness Unable to determine
5. Unable to speak in full sentences
Supplemental O2 of > 40% (5LPM) Intubation is not required
Use of terms such as suspected, likely, concern for, or probable (associated with a specific diagnosis that is being evaluated, monitored, or treated as if it exists) are acceptable and can be coded in the inpatient setting, when documented at the
time of discharge.
Thank you,
Renee Magdaleno RN
CDI Specialist
[place] [facility]
Please use your independent medical judgment in providing your response.
--- NOTE | 2024-03-19 16:49 | PN.CDI ---
CDI
- -
CDI:
Physician Documentation Request
Admit Date: 03/18/24 02:56
Dear Doctor
Please review the following and provide your response in the progress notes.
Clinical Indicators:
Pt admitted with COPD exacerbation RLL PNA
On admission WBC 16.1, HR 109, RR 26
Please clarify which of the following most accurately describes the status of the patient's infection:
Sepsis-POA
- Systemic manifestations of infection, with 2 or more SIRS criteria which include:
- Fever >100.4 degrees F or hypothermia < 96.8 degrees F
- Leukocytosis - WBC > 12,000 or leukopenia - WBC < 4,000 or > 10% bands
- Tachycardia > 90 beats per minute
- Tachypnea - RR > 20 breaths per minute or PaCO2 , 32mmHg
Source: [employer] Manual 2013
____ RLL Pneumonia only , Without Systemic Illness
Other
Use of terms such as suspected, likely, concern for, or probable (associated with a specific diagnosis that is being evaluated, monitored, or treated as if it exists) are acceptable and can be coded in the inpatient setting, when documented at the
time of discharge.
Thank you,
Renee Magdaleno RN
CDI Specialist
[place] [facility]
Please use your independent medical judgment in providing your response.
[2024-03-19] MEDS: LIPITOR 40 MG PO (17:14)
--- NOTE | 2024-03-19 17:31 | W.PN.HOSP.TC ---
Today's Communication/Plan
-
Discussed with the patient, his mom and [id number]
Discussed with the nurse
Assessment / Plan
Assessment / Plan
Physical exam:
General: Awake, alert and oriented x3, not in distress and holds appropriate conversation.
HEENT: On nasal cannula, no active discharge, ecchymosis or bruising, moist lips, tongue and mucous membrane.
Eyes: No discharge or red conjunctiva, no nystagmus, pupils are reactive and equal
Neck:Supple, no JVD no bruit no goiter.
Respiratory: Normal AP contour and diameter, normal chest wall movement, normal respiratory effort, no respiratory distress,
Lungs: Diminished air entry bilaterally, fine wheezing but no rhonchi, no rales or crackles
Heart: S1, S2 regular, normal rate, no added sound.
Gastrointestinal: Positive bowel sounds, soft, nontender, no guarding or rigidity or organomegaly
Musculoskeletal: , no chest wall abnormality or tenderness. All joints and extremities have good range of motion, no muscle tenderness or any joint swelling or tenderness.
Extremities: No pitting edema, good peripheral pulses, good range of motion
Skin: Warm and dry, no ulceration, normal color.
Neurological: Awake, alert and oriented x3,
A/P: Patient is a 69y M with PMH significant for tobacco and alcohol use disorders, HTN and COPD who presents to ED complaining of left side chest pain and SOB admitted for COPD exacerbation. Imaging with finding of right paraspinal lesion with
plans for expedited work-up with MRI inpatient.
COPD with Acute Exacerbation
Acute Hypoxemic Respiratory Insufficiency
Ongoing Tobacco Use Disorder
- admitted to telemetry
- Initial SpO2 in the low 80s on room air placed on CPAP. Patient now off BiPAP, RN to place on NC SpO2 88% RA
- Likely triggered by bilateral pneumonia
-Continue Rocephin and Zithromax
- continue IV Decadron 4mg q 12 hours and wean off as he continued to improve
- standing nebs and PRN
- Pulmonary will appreciated.
Bibasilar pneumonia:
-Rocephin and Zithromax
IV steroid
-DuoNeb
-Monitor vital sign
Probable sleep apnea:
Pulmonary on board and they wanted outpatient sleep apnea eval
Chest Pain
Pleuritic likely pneumonia, resolved
CT negative for PE
Right Paraspinal Lesion
- Patient with approximately 7 x 5 x 6 cm R paraspinal lesion which per record look like been there before and progressing as seen on MRI..
--Neurosurgery input appreciated, further recommendation to neurosurgery
Benign Hypertension
- Stable. BP is controlled. Hold lisinopril / HCT for now.
- Adjust meds if needed for BP control.
NELLY
- Stable. Continue nightly CPAP.
Alcohol Use Disorder
- Patient reports 5-6 beers per day on average.
- Follow MSAS protocol and monitor for signs of withdrawal.
- Ativan PRN if any such signs develop.
- Replete thiamine, folate, etc.
DVT Prophylaxis: SCDs
Code Status: Full
Anticipated Discharge: > 48 hours
Subjective/Interval History
-
Date of Service: March 19, 2024
Seen and examined, awake and alert, looks comfortable denies shortness of breath or chest pain or fever or chill or cough or congestion, admit his left side chest pain is better, still coughing while on 6 L oxygen.
Accompanied by the mother and [id number] and was okay to talk to him in front of them has been approved by the patient.
No sign and symptom of alcohol withdrawal.
Objective Data
-
Vital Signs:
Vital Signs
Temp Pulse Resp BP Pulse Ox
98.0 F 85 18 123/71 89
03/19/24 15:00 03/19/24 15:00 03/19/24 15:00 03/19/24 15:00 03/19/24 15:00
I&O
03/18/24 03/19/24 03/20/24
07:59 07:59 07:59
Intake Total 480 / 480
Output Total 800 / 800 575 / 575
Balance -800 / -800 -95 / -95
Review of Systems
-
All other systems: Reviewed and negative
--- NOTE | 2024-03-19 17:44 | PN.NS ---
Subjective
-
MRI of the thoracic spine completed. Patient seen and examined. Eating dinner. Denies any shortness of breath.
Physical Exam
-
Exam:
Awake, alert, no apparent distress
Motor strength 5/5 in upper and lower extremities.
Reflexes normal, sensation to light touch bilaterally in lower extremities intact
Gait not tested.
Exams: MR Thoracic Spine W/o & With
EXAMINATION: MRI of the thoracic spine without and with contrast
INDICATION: 69-year-old with paraspinal thoracic mass. Chest pain. History of COPD and hypertension.
COMPARISON: CT angiography of the chest from March 18, 2024. Low-dose screening CT examinations of the chest from February 18, 2024 and February 14, 2023. CT angiography of the chest from January 02 2022. Chest radiograph from December 29, 2021.
FINDINGS: MRI of the thoracic spine is performed, images obtained prior to and following intravenous administration of gadolinium-based contrast agent.
On sagittal T2-weighted localizer sequence, mild to moderate changes of degenerative disc disease in the cervical spine. Posterior disc/osteophyte complex at C4-5 and C5-6 extends close to the anterior margin of the spinal cord and may result in
minimal compression. Grossly normal signal intensity of the cervical spinal cord.
There is a paraspinal mass which is centered at the T7 level, and mainly is in the paraspinal region anteriorly and right anteriorly, with a small component off the left anterolateral and left lateral margin of T7. This mass is lobulated,
predominantly cystic increased T1 and T2-weighted signal, but with multiple irregular enhancing septae as well as a slightly thickened enhancing periphery of the mass. The mass extends craniocaudally from the level of the mid to 5 vertebral body to
the level of the inferior T8 vertebral body. This mass overall measures approximately 7.3 cm craniocaudal by 6.5 cm transverse by 5.8 cm AP.
There is abnormal heterogeneous decreased T1 and increased T2 and STIR signal throughout the adjacent T7 vertebral body, as well as heterogeneous enhancement of the T7 vertebral body. There is also abnormal signal and enhancement involving the
anterior aspect of the T6 vertebral body. The enhancement of these vertebral bodies, suggest that there is likely a component of invasion of the mass into these vertebrae.
There is no evidence to suggest extension of this mass into the spinal canal.
The mass appears to be centered in the posterior mediastinum and paraspinal region. It is right lateral to the descending thoracic aorta. The mass appears to be off the right posterior margin of the esophagus, but does not appear to arise from the
esophagus, rather having some mass effect upon the esophagus.
Comparing to previous examinations, this mass has been slowly increasing in size over time, in retrospect present dating back to CT angiography of the chest of January 02, 2022. Correlating with CT examinations, there is a component of patchy
calcification within the mass, mainly anterior to the T7 vertebral body.
Given the enhancement and enlargement of this mass, this very likely represents neoplasia, and a bronchogenic or neurenteric cyst is considered to be fairly unlikely. In this location, neurogenic neoplasias are commonly found, such as schwannomas,
neurofibromas, and malignant peripheral nerve sheath tumors.
Ganglioma and pheochromocytoma could be considered. Neuroblastoma and ganglioneuroma could also be considered. Given the calcification, chondrosarcoma is a consideration. Unusual neoplasms such as Malin's sarcoma and lymphoma are possible. A
metastatic lesion would seem unlikely but also considered in the differential.
Given the findings and slow interval growth, infection would seem to be fairly unlikely. Extramedullary hematopoiesis could be considered, but this appearance would be fairly unusual, and this entity is considered fairly unlikely.
Consideration for further evaluation with biopsy of this lesion.
No separate paraspinal mass is identified.
Of note, the mass does not appear to significantly extend into the neural foramina. There does not appear to be any invasion of the posterior ribs.
There is normal morphology and signal intensity of the thoracic spinal cord. There is no evidence for abnormal enhancement of the thoracic spinal cord.
Conus medullaris appears within normal limits, located at L1-2.
The descending thoracic aorta has normal caliber.
There is intermediate signal intensity within the visualized posterior lungs, which is likely mild to moderate atelectasis. No significant pleural effusion is identified.
IMPRESSION: As described, there is a lobulated irregular enhancing, predominantly cystic signal intensity paraspinal mass in the thoracic spine, centered at the T7 level. 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
See above discussion. Main differential consideration of neurogenic neoplasm. With a degree of calcification, chondrosarcoma is also a consideration. Other less likely differential considerations are discussed above. Consider further evaluation with
biopsy.
Electronically signed by Eliseo Goldberg MD 03/18/2024 11:42 PM
Dictated By: Eliseo Goldberg MD.
Dictated Date & Time: 03/18/24 2404
Problems
-
Problem Status Onset Code
Mass of thoracic structure R22.2
Assessment / Plan
-
69 y/o m with large mediastinal mass, that involves/abuts the right aspect of the T5-T8 vertebral bodies, with involvement of the T7 vertebral body. There is no evidence of neuroforaminal, or spinal canal impingement. Majority of the mass appears
to be predominantly within the mediastinum, along the anterior aspect of the vertebral bodies.
Would recommend IR guided biopsy for diagnosis. If not possible, would suggest CT surgery (thoracic surgery) consultation to evaluate whether this lesion can be biopsied/resected.
No indications for steroids at the present time.
Suggest metastatic workup, if not completed.
Today's Communication
-
Discussed with hospital medicine, the patient
[2024-03-19] MEDS: ROCEPHIN 1000 MG IV (21:50)
[2024-03-19] MEDS: STERILE WATER FOR INJECTION 10 ML IV (21:51)
[2024-03-19] MEDS: TYLENOL 650 MG PO (22:02)
[2024-03-20] VITALS (9 sets, daily range): BP systolic 122–144; BP diastolic 72–81; PULSE 71; O2SAT 95; BMI 25.3
[2024-03-20] MEDS: DECADRON 4 MG IV ×2 (04:15→15:40)
[2024-03-20] MEDS: SYMBICORT 80/4.5 MCG INHALER 2 PUFF INH ×2 (07:52→19:32)
[2024-03-20] MEDS: SPIRIVA RESPIMAT 2.5 MCG 2 PUFF INH (07:52)
[2024-03-20] MEDS: ASPIR LOW (ENTERIC COATED) 81 MG PO (08:30)
[2024-03-20] MEDS: FOLVITE 1 MG PO (08:30)
[2024-03-20] MEDS: ZESTRIL 10 MG PO (08:30)
[2024-03-20] MEDS: ZITHROMAX 250 MG PO (08:31)
[2024-03-20] MEDS: THIAMINE INJECTION 200 MG IV ×2 (08:31→20:25)
[2024-03-20] MEDS: NICODERM TRANSDERMAL 21 MG TRANSDERM (08:31)
--- NOTE | 2024-03-20 11:14 | CONSULT.CT ---
Consultation
-
Date/Time Consultation Requested: 03/20/2024
Date/Time Consultation Performed: 03/20/2024
Requesting Provider: Dr. West
Performing Provider: Lizbeth madera
Reason for Consultation: Paraspinal thoracic mass
Patient History
Physicians
Family Physician: Dr. Mya Jama
Inpatient Mobile Heavy Equipment Operator: Pulria. Dr. Denise Smith
History of Present Illness
Patient is a 69-year-old male with past medical history significant for COPD, sleep apnea using CPAP at home and hypertension. He presented to [facility] ED complaining of left-sided chest pain and shortness of breath. Patient states
symptoms started the night prior and became worse and he eventually called EMS and was brought to the ED for further evaluation. He also reports bilateral lower rib discomfort for the past several weeks. Patient noted that he was scheduled for an
outpatient MRI on the day of his admission for evaluation of a ' mass ' that has been incidentally noted on prior imaging. MRI of the thoracic spine was performed which showed a paraspinal mass in the thoracic spine centered at T7. Film comparison
to earlier studies shows that has been slowly growing since 2021. He was seen by neurosurgery who recommended IR guided biopsy for diagnosis. Cardiothoracic surgery was consulted for further evaluation.
Recommendation to follow through with IR biopsy at a tertiary care center with neurosurgical and cardiothoracic surgery backup. ([facility]
Past Medical History
Past Medical History: BPH, COPD, TAFOYA, HTN, NELLY and SOB
Past medical history of hypertension, COPD, sleep apnea with CPAP at home, AVMs, GI bleed treated by Dr. Szymanski 7 years ago, EtOH abuse, iron deficiency anemia, still smokes every day
Past Surgical History
Past Surgical History: Orthopedic
Family History
Mother: Still Living (93)
Father: at Age (86)
Family Medical History: CAD and Other (Stroke)
Social History
Alcohol: Daily (Drinks 5-6 beers every day)
Drug: None
Tobacco: Smoker (Current everyday smoker greater than [id number] history)
Personal: Single
Living: With Family (Lives with mother)
Employment: Retired (Retired from [employer])
Allergies
Allergy/AdvReac Type Severity Reaction Status Date / Time
No Known Allergies Allergy Verified 03/17/24 21:00
Home Medications
�Medication �Instructions �Recorded �Confirmed �Type
atorvastatin 40 mg tablet 40 mg PO DAILY High cholesterol 12/29/21 03/18/24 History
aspirin 81 mg tablet,delayed 81 mg PO DAILY 30 days #30 tabs 01/05/22 03/18/24 Rx
release
acetaminophen 500 mg tablet 1,000 mg PO BIDPRN PRN mild pain 03/18/24 03/18/24 History
(Tylenol Extra Strength)
famotidine 20 mg tablet 20 mg PO DAILY Gastrointestinal 03/18/24 03/18/24 History
Issue
ferrous sulfate 325 mg (65 mg 325 mg PO Q48H@0800 Supplement 03/18/24 03/18/24 History
iron) tablet (iron)
fluticasone fur. 100 mcg-umeclid 1 inh inhalation R DAILY 03/18/24 03/18/24 History
62.5 mcg-vilant 25 mcg Lung/Breathing Issues
inhalat.powder (Trelegy Ellipta)
lisinopril 20 1 tab PO DAILY Blood Pressure 03/18/24 03/18/24 History
mg-hydrochlorothiazide 12.5 mg
tablet
multivitamin 1 tab PO DAILY Supplement 03/18/24 03/18/24 History
naproxen sodium 220 mg tablet 220 mg PO BID PRN mild pain 03/18/24 03/18/24 History
(Aleve)
Review of Systems
-
History Source: Patient
General: Reports No Symptoms
HEENT: Reports No Symptoms
Respiratory: Reports SOB, TAFOYA, Asthma and Other (COPD, sleep apnea with CPAP at home)
Cardiac: Reports No Symptoms
Abdomen/GI: Reports No Symptoms
: Reports Nocturia
Musculoskeletal: Reports No Symptoms
Skin: Reports No Symptoms
Neurological: Reports No Symptoms
Vascular: Reports Claudication and Other (Legs tire easily, pain in legs at night)
Physical Exam
Vital Signs
Temp 98.0 F 03/20/24 11:00
Temp route: Oral 03/20/24 11:00
Pulse 82 03/20/24 11:00
Rhythm: Normal sinus rhythm 03/19/24 09:24
Resp Rate 18 03/20/24 11:00
Blood pressure 144/79 03/20/24 11:00
Blood pressure extremity used: Left upper arm 03/20/24 11:00
Position: Lying 03/20/24 11:00
MAP (cuff-Randell Monitor) 64 03/18/24 12:00
SaO2 91 03/20/24 11:00
Nasal Cannula flow liters per minute 6 03/19/24 15:00
Oxygen Mode of Delivery Room air 03/20/24 11:00
Pulse Ox at Rest 98 03/19/24 12:04
Can the patient verbally communicate their pain? Yes 03/19/24 23:02
Pain scale rating: Asleep 03/19/24 23:02
Actual Weight 166 lb 2 oz 03/20/24 06:00
Body Mass Index (BMI) 25.3 03/20/24 06:00
Supine- Blood Pressure 143/85 03/18/24 11:17
Supine- Pulse 99 03/18/24 11:17
Sitting- Blood Pressure 148/79 03/19/24 15:00
Sitting- Pulse 87 03/19/24 15:00
Heart rate after activity 86 03/19/24 12:04
Oxygen Saturation with Activity 97 03/19/24 12:04
Labs
03/18/24 05:21
03/18/24 05:21
Troponin I < 0.012 ng/ml 03/18/24 17:49
Cob-G-Faekhaygwjf Pept 131 pg/ml 03/17/24 21:02
Exam
General: Well Developed, Well Nourished, No Apparent Distress and Comfortable
HEENT: Normocephalic, Anicteric and Atraumatic
Neck: Trachea Midline
Respiratory: Clear
Cardiac: Regular Rhythm
GI: Soft, Non Tender, Non Distended and Normal Bowel Sounds
Rectal: Deferred by Provider
Skin: Warm
Neuro: Awake, Alert, Oriented and AO x 3
Extremities: Pulses (Distal pulses intact bilaterally , 1-2+ dorsalis pedis pulses bilaterally, feet cool bilaterally)
Lymph: No Lymphadenopathy
Psych: Calm
Assessment / Plan
-
Assessment
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
COPD with acute exacerbation
Ongoing tobacco use disorder
Hypertension
Obstructive sleep apnea continue CPAP use next
Alcohol use disorder
AVM/GI bleed followed by Dr. Szymanski
Iron deficiency anemia
Plan:
Would recommend IR guided biopsy for diagnosis at a tertiary care center
--- NOTE | 2024-03-20 14:23 | W.PN.HOSP.TC ---
Addendum entered and electronically signed by Lee West MD 03/20/24 16:43:
Impression sepsis, present admission likely secondary to pneumonia with white cell count more than 16, hypoxic respiratory failure requiring 6 L oxygen and tachycardia, resolved
IV antibiotic.
Acute hypoxic failure: Likely secondary to acute on chronic COPD exacerbation by pneumonia
Was 6 L oxygen earlier but now off oxygen.
Original Note:
Today's Communication/Plan
-
All discussed with the patient and the family
Discussed with nurse
Case management
Assessment / Plan
Assessment / Plan
Physical exam:
General: Awake, alert and oriented x3, not in distress and holds appropriate conversation. No signs and symptoms of alcohol withdrawal
HEENT: All nasal cannula, no active discharge, ecchymosis or bruising, moist lips, tongue and mucous membrane.
Eyes: No discharge or red conjunctiva, no nystagmus, pupils are reactive and equal
Neck:Supple, no JVD no bruit no goiter.
Respiratory: Normal AP contour and diameter, normal chest wall movement, normal respiratory effort, no respiratory distress,
Lungs: Diminished air entry bilaterally, fine wheezing but no rhonchi, no rales or crackles
Heart: S1, S2 regular, normal rate, no added sound.
Gastrointestinal: Positive bowel sounds, soft, nontender, no guarding or rigidity or organomegaly
Musculoskeletal: , no chest wall abnormality or tenderness. All joints and extremities have good range of motion, no muscle tenderness or any joint swelling or tenderness.
Extremities: No pitting edema, good peripheral pulses, good range of motion
Skin: Warm and dry, no ulceration, normal color.
A/P: Patient is a 69y M with PMH significant for tobacco and alcohol use disorders, HTN and COPD who presents to ED complaining of left side chest pain and SOB admitted for COPD exacerbation. Imaging with finding of right paraspinal lesion with
plans for expedited work-up with MRI inpatient.
COPD with Acute Exacerbation
Acute Hypoxemic Respiratory Insufficiency, resolved on and off oxygen at some point he was on 6 L
Breathing treatment
Continue IV dexamethasone today and changed to prednisone tomorrow.
Inhaler
Advised about quitting smoking and risk of the continue treatment to him and did
Pulmonary but appreciated
Need outpatient follow-up with pulmonary
Bibasilar pneumonia:
-Rocephin and Zithromax
IV steroid as above changed to orally tomorrow
-DuoNeb
-Monitor vital sign
Probable sleep apnea:
Pulmonary on board and they wanted outpatient sleep apnea eval
Chest Pain
Pleuritic likely pneumonia, resolved
CT negative for PE
Right Paraspinal and mediastinal lesion
- Patient with approximately 7 x 5 x 6 cm R paraspinal lesion which per record look like been there before and progressing as seen on MRI..
--Neurosurgery input appreciated, they recommended CT surgery for biopsy and surgery
CT surgery they recommended IR biopsy and outpatient follow-up with a tertiary center accordingly.
Already scheduled for biopsy by IR tomorrow morning I called IR and confirmed
Outpatient follow-up with the [facility] surgery: The contact number is was provided to the patient and his sister will care for him.
[facility], 4th Floor
[address]
[place], [place]

2:21 PM
30 days left
the other option is:
[facility]
4th Floor
[address]
[place], [place]

All discussed with the patient and expressed understanding
Benign Hypertension
- Stable. BP is controlled. Hold lisinopril / HCT for now.
- Adjust meds if needed for BP control.
NELLY
- Stable. Continue nightly CPAP.
Alcohol Use Disorder
- Patient reports 5-6 beers per day on average.
- Follow MSAS protocol and monitor for signs of withdrawal.
- Ativan PRN if any such signs develop.
- Replete thiamine, folate, etc.
DVT Prophylaxis: SCDs
Code Status: Full
Anticipated Discharge: 24 - 48 hours
Subjective/Interval History
-
Date of Service: March 20, 2024
Seen and examined, awake and alert. Breathing is much better still having some shortness of breath with exertion, off oxygen completely.
Afebrile denies any nausea or vomiting or fever or chills.
Objective Data
-
Vital Signs:
Vital Signs
Temp Pulse Resp BP Pulse Ox
98.0 F 82 18 144/79 91
03/20/24 11:00 03/20/24 11:00 03/20/24 11:00 03/20/24 11:00 03/20/24 11:00
I&O
03/19/24 03/20/24 03/21/24
07:59 07:59 07:59
Intake Total 480 / 480 1679
Output Total 575 / 575
Balance -95 / -95 1679
Review of Systems
-
All other systems: Reviewed and negative
--- NOTE | 2024-03-20 14:35 | CM ---
Addendum entered by Kristen Mack 03/20/24 15:44:
Patient completed and signed Medical Record Release to [facility]
Original Note:
Per Request from patient, CM contacted and spoke with patient's sister in , [place]y Millard # , via phone
Per Attending, Patient is scheduled for Biopsy tomorrow and will need to follow up at a tertiary care center
Sister in had no preference for a Tertiary Center; suggested [facility] or [place]
She said she lives in [place]. Getting to [facility] in [place] via would probably be more convenient instead of [place].
E-mailed the following information to [email or web address]); and notified her via phone that the following information was sent:
[facility], 4th Floor
[address] [place] [address]
[place], [place]
#
and
[facility]
On License Of [facility]
4th Floor
[address] [place] [address]
[place], [place]
#
--- NOTE | 2024-03-20 16:37 | W.PN.PUL3 ---
Today's Communication / Plan
-
Antibiotics
Symbicort + Spiriva
MSAS
Thiamine/folate
Finish decadron tonight and tomorrow start prednisone taper tomorrow at 40 mg and reduce by 10 mg every fourth day until off
NPO p MN for IR Ct guided biopsy of paraspinal mass
Assessment
-
Assessment: 69-year-old male active tobacco smoker with mild COPD, severe NELLY on CPAP, hypertension, hyperlipidemia, aortic stenosis, history of GI bleed due to AVMs, alcohol use disorder and CHF who presents with left-sided chest pain that
radiated to L UE. CP started 1 night prior to arrival. Pain got increasingly worse so he came to the ER. He apparently was being worked up as an outpatient for right-sided chest pain with an upcoming MRI scheduled for 03/18/2024. In the ER patient
was saturating 88% on 6 L/min nasal cannula. He was tachycardic to 107 bpm, tachypneic to 22 breaths/min, BP: 149/90 and he was afebrile to 98 �F. Labs showed leukocytosis to 16.1, mild anemia to 12.9, increased platelet count of 504, mildly
hyponatremic to 133, negative troponin with a normal proBNP (131), and TSH also normal at 0.51. A CT of the chest was done showing no acute PE, with bilateral lower lobe dependent consolidation (R >L), with a large right-sided paraspinal soft
tissue mass seen with reactive changes adjacent to the vertebral body at T7, suspicious for a malignant process. This was also seen on a prior CT chest from 02/18/2024. Given the patient's history of COPD with acute hypoxia, pulmonary service
consulted for additional recommendations.
Chronic conditions [employer] INST[employer]ER: COPD/emphysema, severe NELLY, hypertension, hyperlipidemia, fatty liver disease, colonic polyps, history of sigmoid diverticulosis, history of symptomatic anemia with AVMs, aortic stenosis, tobacco use disorder of 1 PPD,
alcohol use disorder, hiatal hernia, CHF
Impression:
#Acute respiratory failure with hypoxia
#COPD with acute exacerbation due to RLL pneumonia
#RLL Pneumonia with bibasilar atelectasis
#Abnormal CT chest with bibasilar consolidation (R >L), with large right-sided paraspinal soft tissue mass suspicious for malignant process
#Left-sided chest pain - non-anginal and it is likely referred pain from paraspinal soft tissue mass
#Mild hypochloremic, hyponatremia - resolved
#Leukocytosis
#Severe NELLY (AHI: 41.3 with stephan SpO2 72% via baseline HSAT in January 2023) on CPAP
#Mild COPD with borderline hyperinflation and severe gas exchange capacity defect/severe panlobular emphysema
#Active tobacco use disorder
#Alcohol use disorder
Plan:
- Continue systemic steroids and wean as tolerated � currently on Decadron 4 mg IV q12hr � will wean to prednisone tomorrow starting at 40 mg and reduce by 10 mg every fourth day until off
- Continue with DuoNebs QID with prn doses in between
- MRI T-spine shows a lobulated irregular enhancing, cystic signal intensity in the thoracic spine concerning for a neurogenic neoplasm. Neurosurgery requesting IR guided biopsy of lesion; if they are unable to reach lesion, then CT surgery will be
consulted.
- Maintain SpO2 >88-94% with supplemental O2 as needed
- Incentive spirometer encouraged
- Continue Symbicort and Spiriva with prn Duonebs
- Continue Abx with rocephin x 7 days and azithro x 5 days (QTc: 429ms)
- Follow up infectious workup with blood and sputum Cx; negative urine antigens for both legionella and S pneumonia
- Continue CPAP with sleep - given he has used 8cmH2O at home but feels as if the pressure is 'too low,' continue [id number] while hospitalized, would titrate O2 bleed rate to maintain SpO2 >88%
- Thiamine, folic acid and MVN
- MSAS
- Nicotine patch
- Trend WBC
- Pain control
- Replete electrolytes with K>4, Mg>2
- Maintain euglycemia with goal BG >100 and <180
- DVT ppx
Pulmonary service will continue to follow along. We will ensure that patient sees us after discharge in the [facility] office. He did have a follow-up appointment scheduled with Dr. Smith for 03/20/2024, but this will need to be rescheduled as he will
likely still be hospitalized here at that point.
Total time spent today was 35 minutes for this encounter. Time includes reviewing laboratory test/imaging results, reviewing pertinent medical records, obtaining and reviewing medical history, performing an appropriate exam, ordering medications,
tests and procedures. Time also includes documentation of this encounter, coordinating patient care and communicating with other healthcare professionals. Total time does not include separately billed tests performed on this date of service.
Data:
MRI T-Spine 03-18-2024: There is a lobulated irregular enhancing, predominantly cystic signal intensity paraspinal mass in the thoracic spine, centered at the T7 level. 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
See above discussion. Main differential consideration of neurogenic neoplasm. With a degree of calcification, chondrosarcoma is also a consideration. Other less likely differential considerations are discussed above. Consider further evaluation with
biopsy.
CTA Chest 03-18-2024:
1. No evidence of pulmonary embolism.
2. Bilateral lower lobe dependent consolidation (right greater than left), new from prior. Findings may represent atelectasis and/or pneumonia.
3. Redemonstration of large right-sided paraspinal soft tissue mass at the mid-thoracic level with new appearance of adjacent T7 vertebral body reactive changes, suspicious for malignant process. The patient is scheduled for MRI.
Lower Extremity US 03-18-2024: No evidence of deep venous thrombosis in the bilateral lower extremities
Subjective Data
-
Date of Service:
Date of Service: March 20, 2024
Chief Complaint: Pulmonary Follow Up
Subjective:
Patient seen this afternoon. Wore CPAP last night at 10 cmH2O bled with 3 L/min. He has been walking with the lang and has been breathing well. He currently denies any chest pain. Denies any headache, abdominal pain, diarrhea, fevers or chills.
Plans for IR biopsy tomorrow of his paraspinal mass.
Review of Systems
General: Other (Negative unless mentioned above)
Objective Data
Data Reviewed
Vital Signs / I&O / Oxygen:
Vital Signs
Temp Pulse Resp BP Pulse Ox
97.9 F 84 18 140/77 95
03/20/24 15:00 03/20/24 15:00 03/20/24 15:00 03/20/24 15:00 03/20/24 15:00
Intake and Output
03/19/24 03/20/24 03/21/24
06:59 06:59 06:59
Intake Total 480 / 480 1680 / 1680
Output Total 575 / 575
Balance -95 / -95 1680 / 1680
SaO2 95
Nasal Cannula flow liters per 6
minute
Physical Exam
General: Respiratory Distress (Negative) and Comfortable
HEENT: Normocephalic and Anicteric
Cardiovascular: S1-S2, Peripheral Edema (Negative) and Other (Distant heart sounds)
Respiratory: Wheeze (Negative), Crackles (Bibasilar), Rhonchi (Negative) and Non-Labored Respirations
GI: Soft, Non Distended and Non Tender
Neurology: AO x 3 and Tremors (Negative)
Skin: Warm and Dry
Labs/Micro/Reports
Lab Data
03/18/24 05:21
03/18/24 05:21
Microbiology
03/18/24 20:22 Blood/Venous Blood Culture - Preliminary
No Growth in 24 hours- Final report to follow
03/18/24 23:35 Sputum Respiratory Culture - Final
03/18/24 23:35 Sputum Gram Stain - Final
03/18/24 23:39 Urine Legionella Urinary Antigen - Final
Negative for Legionella pneumophila Serogroup 1 antigen.
A negative result does not rule out the possiblity of
Legionella infection due to other serogroups or species of
Legionella. Clinical correlation is recommended.
03/18/24 23:39 Urine Streptococcus pneumoniae Antigen (M - Final
Negative for Streptococcus pneumoniae antigen.
A negative result does not exclude infection with
Streptococcus pneumoniae. Clinical correlation is
recommended.
[2024-03-20] MEDS: LIPITOR 40 MG PO (17:05)
[2024-03-20] MEDS: STERILE WATER FOR INJECTION 10 ML IV (21:36)
[2024-03-20] MEDS: ROCEPHIN 1000 MG IV (21:37)
[2024-03-20] MEDS: TYLENOL 650 MG PO (21:41)
[2024-03-21] VITALS (13 sets, daily range): BP systolic 73–154; BP diastolic 52–90; PULSE 89; O2SAT 90–94; BMI 25.4
[2024-03-21 01:07] LABS: Hepatitis C Antibody Negative (Negative)
[2024-03-21] MEDS: DECADRON 4 MG IV (03:41)
[2024-03-21 05:57] LABS: INR 1.01; PT 13.3 Sec (11.4-14.6)
[2024-03-21] MEDS: SPIRIVA RESPIMAT 2.5 MCG 2 PUFF INH (08:13)
[2024-03-21] MEDS: SYMBICORT 80/4.5 MCG INHALER 2 PUFF INH ×2 (08:14→21:05)
--- NOTE | 2024-03-21 08:28 | W.PN.UPDATE ---
Update Note
Progress Note Update
Discussed with Dr. Smith this morning. Images reviewed. Continue with IR Ct guided biopsy of paraspinal mass.
Ct surgery will sign off.
Mandy OBRIEN
Cardiac Surgery
[2024-03-21] MEDS: FOLVITE 1 MG PO (09:13)
[2024-03-21] MEDS: ZESTRIL 10 MG PO (09:13)
[2024-03-21] MEDS: VITAMIN B1 100 MG PO ×2 (09:13→21:20)
[2024-03-21] MEDS: ZITHROMAX 250 MG PO (09:13)
[2024-03-21] MEDS: DELTASONE 40 MG PO (09:13)
[2024-03-21] MEDS: ASPIR LOW (ENTERIC COATED) 81 MG PO (09:13)
[2024-03-21] MEDS: NICODERM TRANSDERMAL 21 MG TRANSDERM (09:14)
--- NOTE | 2024-03-21 10:41 | CM ---
quality control manager reviewed patient's chart and met with patient, per chart patient is for biopsy today and then per patient plan is to home, patient lives with his mother.
Plan; Home when stable, no needs.
--- NOTE | 2024-03-21 15:21 | W.PN.PUL3 ---
Today's Communication / Plan
-
Antibiotics
Symbicort + Spiriva
MSAS
Thiamine/folate
Start prednisone taper today at 40 mg and reduce by 10 mg every fourth day until off
NPO for IR Ct guided biopsy of paraspinal mass
Patient is doing very well from a pulmonary standpoint, and is only still hospitalized for IR biopsy of his paraspinal mass. Patient is stable for discharge per the hospitalist following this biopsy, and he will likely be discharged home tomorrow.
Pulmonary service will now sign off. Please reconsult if there are any additional questions/concerns, or if patient's respiratory status deteriorates.
We will ensure that patient sees us after discharge in the [facility] office. He did have a follow-up appointment scheduled with Dr. Smith for 03/20/2024, but this will be rescheduled.
Assessment
-
Assessment: 69-year-old male active tobacco smoker with mild COPD, severe NELLY on CPAP, hypertension, hyperlipidemia, aortic stenosis, history of GI bleed due to AVMs, alcohol use disorder and CHF who presents with left-sided chest pain that
radiated to L UE. CP started 1 night prior to arrival. Pain got increasingly worse so he came to the ER. He apparently was being worked up as an outpatient for right-sided chest pain with an upcoming MRI scheduled for 03/18/2024. In the ER patient
was saturating 88% on 6 L/min nasal cannula. He was tachycardic to 107 bpm, tachypneic to 22 breaths/min, BP: 149/90 and he was afebrile to 98 �F. Labs showed leukocytosis to 16.1, mild anemia to 12.9, increased platelet count of 504, mildly
hyponatremic to 133, negative troponin with a normal proBNP (131), and TSH also normal at 0.51. A CT of the chest was done showing no acute PE, with bilateral lower lobe dependent consolidation (R >L), with a large right-sided paraspinal soft
tissue mass seen with reactive changes adjacent to the vertebral body at T7, suspicious for a malignant process. This was also seen on a prior CT chest from 02/18/2024. Given the patient's history of COPD with acute hypoxia, pulmonary service
consulted for additional recommendations.
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
alcohol use disorder, hiatal hernia, CHF
Impression:
#Acute respiratory failure with hypoxia - improved
#COPD with acute exacerbation due to RLL pneumonia
#RLL Pneumonia with bibasilar atelectasis
#Abnormal CT chest with bibasilar consolidation (R >L), with large right-sided paraspinal soft tissue mass suspicious for malignant process
#Left-sided chest pain - non-anginal and it is likely referred pain from paraspinal soft tissue mass
#Mild hypochloremic, hyponatremia - resolved
#Leukocytosis
#Severe NELLY (AHI: 41.3 with stephan SpO2 72% via baseline HSAT in January 2023) on CPAP
#Mild COPD with borderline hyperinflation and severe gas exchange capacity defect/severe panlobular emphysema
#Active tobacco use disorder
#Alcohol use disorder
Plan:
- Continue systemic steroids and wean as tolerated � was on Decadron 4 mg IV q12hr and I weaned this down to prednisone today starting at 40 mg and reduce by 10 mg every fourth day until off
- Continue with prn albuterol
- MRI T-spine shows a lobulated irregular enhancing, cystic signal intensity in the thoracic spine concerning for a neurogenic neoplasm. Neurosurgery requesting IR guided biopsy of lesion; if they are unable to reach lesion, then CT surgery will be
consulted. He is going for IR biopsy today.
- Maintain SpO2 >88-94% with supplemental O2 as needed
- Incentive spirometer encouraged
- Continue Symbicort and Spiriva with prn Duonebs
- Continue Abx with rocephin x 7 days and azithro x 5 days (QTc: 429ms)
- Follow up infectious workup with blood and sputum Cx; negative urine antigens for both legionella and S pneumonia
- Continue CPAP with sleep - given he has used 8cmH2O at home but feels as if the pressure is 'too low,' continue 41deR0G while hospitalized, would titrate O2 bleed rate to maintain SpO2 >88%
- Thiamine, folic acid and MVN
- MSAS
- Nicotine patch
- Trend WBC
- Pain control
- Replete electrolytes with K>4, Mg>2
- Maintain euglycemia with goal BG >100 and <180
- DVT ppx
Patient is doing very well from a pulmonary standpoint, and is only still hospitalized for IR biopsy of his paraspinal mass. Patient is stable for discharge per the hospitalist following this biopsy, and he will likely be discharged home tomorrow.
Pulmonary service will now sign off. Thank you for allowing us to be involved in the care of this patient. Please reconsult if there are any additional questions/concerns, or if patient's respiratory status deteriorates.
We will ensure that patient sees us after discharge in the [facility] office. He did have a follow-up appointment scheduled with Dr. Smith for 03/20/2024, but this will be rescheduled.
Total time spent today was 25 minutes for this encounter. Time includes reviewing laboratory test/imaging results, reviewing pertinent medical records, obtaining and reviewing medical history, performing an appropriate exam, ordering medications,
tests and procedures. Time also includes documentation of this encounter, coordinating patient care and communicating with other healthcare professionals. Total time does not include separately billed tests performed on this date of service.
Data:
MRI T-Spine 03-18-2024: There is a lobulated irregular enhancing, predominantly cystic signal intensity paraspinal mass in the thoracic spine, centered at the T7 level. 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
See above discussion. Main differential consideration of neurogenic neoplasm. With a degree of calcification, chondrosarcoma is also a consideration. Other less likely differential considerations are discussed above. Consider further evaluation with
biopsy.
CTA Chest 03-18-2024:
1. No evidence of pulmonary embolism.
2. Bilateral lower lobe dependent consolidation (right greater than left), new from prior. Findings may represent atelectasis and/or pneumonia.
3. Redemonstration of large right-sided paraspinal soft tissue mass at the mid-thoracic level with new appearance of adjacent T7 vertebral body reactive changes, suspicious for malignant process. The patient is scheduled for MRI.
Lower Extremity US 03-18-2024: No evidence of deep venous thrombosis in the bilateral lower extremities
Subjective Data
-
Date of Service:
Date of Service: March 21, 2024
Chief Complaint: Pulmonary Follow Up
Subjective:
Patient seen today. Breathing well. Wore CPAP overnight bled with 3 L/min. Walking around the unit in no acute distress, having no respiratory complaints. He is on room air and breathing comfortably. He is awaiting IR biopsy of his paraspinal
mass. Denies chest pain, headache, abdominal pain, fevers or chills. He is eager to go home.
Review of Systems
General: Other (Negative unless mentioned above)
Objective Data
Data Reviewed
Vital Signs / I&O / Oxygen:
Vital Signs
Temp Pulse Resp BP Pulse Ox
98.0 F 73 17 134/90 96
03/21/24 17:00 03/21/24 17:05 03/21/24 17:05 03/21/24 17:05 03/21/24 17:00
Intake and Output
03/20/24 03/21/24 03/22/24
06:59 06:59 06:59
Intake Total 1680 / 1680 1380 / 1380 160 / 160
Balance 1680 / 1680 1380 / 1380 160 / 160
SaO2 96
Nasal Cannula flow liters per 2
minute
Physical Exam
General: Respiratory Distress (Negative) and Comfortable
HEENT: Normocephalic and Anicteric
Cardiovascular: S1-S2, Peripheral Edema (Negative) and Other (Distant heart sounds)
Respiratory: Wheeze (Negative), Crackles (Negative), Rhonchi (Negative) and Non-Labored Respirations
GI: Soft, Non Distended and Non Tender
Neurology: AO x 3 and Tremors (Negative)
Skin: Warm and Dry
Labs/Micro/Reports
Lab Data
03/18/24 05:21
03/18/24 05:21
Laboratory Results
03/21/24
05:15
PT 13.3
INR 1.01
Microbiology
03/18/24 20:22 Blood/Venous Blood Culture - Preliminary
No Growth in 48 hours- Final report to follow
03/18/24 23:35 Sputum Respiratory Culture - Final
03/18/24 23:35 Sputum Gram Stain - Final
03/18/24 23:39 Urine Legionella Urinary Antigen - Final
Negative for Legionella pneumophila Serogroup 1 antigen.
A negative result does not rule out the possiblity of
Legionella infection due to other serogroups or species of
Legionella. Clinical correlation is recommended.
03/18/24 23:39 Urine Streptococcus pneumoniae Antigen (M - Final
Negative for Streptococcus pneumoniae antigen.
A negative result does not exclude infection with
Streptococcus pneumoniae. Clinical correlation is
recommended.
--- NOTE | 2024-03-21 15:34 | PTOTSP ---
pt up in room ad yadira, able to complete simple ADLs, functional transfers, ambulation with no assistance. issued and reviewed energy conservation education, pt verbalized understanding. no further OT needs identified, will sign off at this time.
--- NOTE | 2024-03-21 16:12 | W.PN.HOSP.TC ---
Today's Communication/Plan
-
Plan to discharge after IR biopsy this afternoon
Assessment / Plan
Assessment / Plan
Physical Exam
General: Not in acute distress
HEENT: Normocephalic
Neck: Supple
Lungs: Some crackles bilaterally
Heart: S1, S2 regular, normal rate
Gastrointestinal: Positive bowel sounds, soft, nontender
Extremities: No pitting edema
Skin: Warm and dry
A/P: Patient is a 69y M with PMH significant for tobacco and alcohol use disorders, HTN and COPD who presented to ED complaining of left side chest pain and SOB admitted for COPD exacerbation. Imaging with finding of right paraspinal lesion
with plans for expedited work-up with MRI inpatient.
COPD with Acute Exacerbation
Acute Hypoxic Respiratory Failure due to Pneumonia
Breathing treatment
Prednisone taper on discharge
Inhaler
Advised about quitting smoking and risk of the continue treatment to him and did
Pulmonary but appreciated
Need outpatient follow-up with pulmonary
Bibasilar pneumonia:
-Rocephin and Zithromax --> can switch to Cefdinir (for 4 more days) and Zithromax (for 2 more days) on discharge, as discussed with pulmonary -- will check repeat EKG for QTc prior to sending in Zithromax
-DuoNeb
-Monitor vital sign
Probable sleep apnea:
Pulmonary on board and they wanted outpatient sleep apnea eval
Chest Pain
Pleuritic likely pneumonia, resolved
CT negative for PE
Right Paraspinal and mediastinal lesion
- Patient with approximately 7 x 5 x 6 cm R paraspinal lesion which per record look like been there before and progressing as seen on MRI..
--Neurosurgery input appreciated, they recommended CT surgery for biopsy and surgery
CT surgery they recommended IR biopsy and outpatient follow-up with a tertiary center accordingly.
Already scheduled for biopsy by IR today
Outpatient follow-up with the [facility]: The contact number is was provided to the patient and his sister will care for him.
[facility], 4th Floor
[address] [place] [address] [place], [place]

2:21 PM
30 days left
the other option is:
[facility]
4th Floor
[address] [place] [address]
[place], [place]

All discussed with the patient and expressed understanding
Benign Hypertension
- Stable. BP is controlled. Hold lisinopril / HCTZ for now.
- Adjust meds if needed for BP control.
NELLY
- Stable. Continue nightly CPAP.
Alcohol Use Disorder
- Patient reports 5-6 beers per day on average.
- Follow MSAS protocol and monitor for signs of withdrawal.
- Ativan PRN if any such signs develop.
- Replete thiamine, folate, etc.
DVT Prophylaxis: SCDs
Code Status: Full
More than 30 minutes spent in discharge including
Final examination of the patient
Summarizing hospital stay
Instructions for continuing care to all relevant caregivers
Preparation of discharge records, prescriptions, and referral forms
Total time spent (in minutes): 38
Anticipated Discharge: Today
Subjective/Interval History
-
Date of Service: March 21, 2024
Patient was seen and examined. He denied any new complaints, denied any new symptoms, and denied chest pain or shortness of breath.
Objective Data
-
Labs:
Laboratory Results
03/21/24
05:15
PT 13.3
INR 1.01
Vital Signs:
Vital Signs
Temp Pulse Resp BP Pulse Ox
97.9 F 70 16 137/89 97
05/10/24 15:00 03/21/24 15:00 03/21/24 15:00 03/21/24 15:00 03/21/24 15:00
I&O
03/20/24 03/21/24 03/22/24
06:59 06:59 06:59
Intake Total 1680 / 1680 1380 / 1380
Balance 1680 / 1680 1380 / 1380
[2024-03-21] MEDS: LIPITOR 40 MG PO (17:30)
[2024-03-21] MEDS: TYLENOL 650 MG PO (21:21)
[2024-03-21] MEDS: ROCEPHIN 1000 MG IV (21:21)
[2024-03-21] MEDS: STERILE WATER FOR INJECTION 10 ML IV (21:22)
[2024-03-22] MEDS: TYLENOL 650 MG PO (05:29)
[2024-03-22 06:00] VITALS: BMI 25.3
[2024-03-22 07:30] VITALS: BP 139/75
[2024-03-22] MEDS: SPIRIVA RESPIMAT 2.5 MCG 2 PUFF INH (07:52)
[2024-03-22] MEDS: SYMBICORT 80/4.5 MCG INHALER 2 PUFF INH (07:52)
[2024-03-22] MEDS: NICODERM TRANSDERMAL 21 MG TRANSDERM (08:47)
[2024-03-22] MEDS: DELTASONE 40 MG PO (08:50)
[2024-03-22] MEDS: ASPIR LOW (ENTERIC COATED) 81 MG PO (08:51)
[2024-03-22] MEDS: FOLVITE 1 MG PO (08:51)
[2024-03-22] MEDS: ZESTRIL 10 MG PO (08:51)
[2024-03-22] MEDS: VITAMIN B1 100 MG PO (08:51)
[2024-03-22] MEDS: ZITHROMAX 250 MG PO (08:51)
[2024-03-22 10:41] VITALS: O2SAT 90; O2SAT 95
--- NOTE | 2024-03-22 13:27 | W.PN.HOSP.TC ---
Today's Communication/Plan
-
Discharge today
Assessment / Plan
Assessment / Plan
Physical Exam
General: Not in acute distress
HEENT: Normocephalic
Neck: Supple
Lungs: Some crackles bilaterally
Heart: S1, S2 regular, normal rate
Gastrointestinal: Positive bowel sounds, soft, nontender
Extremities: No pitting edema
Skin: Warm and dry
A/P: Patient is a 69y M with PMH significant for tobacco and alcohol use disorders, HTN and COPD who presented to ED complaining of left side chest pain and SOB admitted for COPD exacerbation. Imaging with finding of right paraspinal lesion
with plans for expedited work-up with MRI inpatient.
COPD with Acute Exacerbation
Acute Hypoxic Respiratory Failure due to Pneumonia
Breathing treatment
Prednisone taper on discharge -- 40 mg 1 more day, followed by 10 mg decrease every 4th day until off
Inhaler
Advised about quitting smoking and risk of the continue treatment to him and did
Pulmonary but appreciated
Need outpatient follow-up with pulmonary
Bibasilar pneumonia:
-Rocephin and Zithromax --> can switch to Cefdinir (for 3 more days) and Zithromax (for 1 more day) on discharge, as discussed with pulmonary -- will check repeat EKG for QTc prior to sending in Zithromax
-DuoNeb
-Monitor vital sign
Probable sleep apnea:
Pulmonary on board and they wanted outpatient sleep apnea eval
Continue CPAP
Chest Pain
Pleuritic likely pneumonia, resolved
CT negative for PE
Right Paraspinal and mediastinal lesion
- Patient with approximately 7 x 5 x 6 cm R paraspinal lesion which per record look like been there before and progressing as seen on MRI..
--Neurosurgery input appreciated, they recommended CT surgery for biopsy and surgery
CT surgery they recommended IR biopsy and outpatient follow-up with a tertiary center accordingly.
Already scheduled for biopsy by IR today
Outpatient follow-up with the [facility] surgery: The contact number is was provided to the patient and his sister will care for him.
Benign Hypertension
- Stable. BP is controlled. Continue lisinopril / Hold HCTZ for now.
- Adjust meds if needed for BP control.
NELLY
- Stable. Continue nightly CPAP.
Alcohol Use Disorder
- Patient reports 5-6 beers per day on average.
- Follow MSAS protocol and monitor for signs of withdrawal.
- Ativan PRN if any such signs develop.
- Replete thiamine, folate, etc.
DVT Prophylaxis: SCDs
Code Status: Full
More than 30 minutes spent in discharge including
Final examination of the patient
Summarizing hospital stay
Instructions for continuing care to all relevant caregivers
Preparation of discharge records, prescriptions, and referral forms
Total time spent (in minutes): 36
Anticipated Discharge: Today
Subjective/Interval History
-
Date of Service: March 22, 2024
Patient was seen and examined. He reported feeling good, he denied chest pain, shortness of breath or any other complaints.
Objective Data
-
Vital Signs:
Vital Signs
Temp Pulse Resp BP Pulse Ox
97.7 F 87 16 139/75 92
03/22/24 07:30 03/22/24 07:59 03/22/24 07:59 03/22/24 07:30 03/22/24 10:41
I&O
03/21/24 03/22/24 03/23/24
06:59 06:59 06:59
Intake Total 1380 / 1380 400 / 400
Balance 1380 / 1380 400 / 400
[2024-03-22 15:10] VITALS: BP 134/83
--- NOTE | 2024-03-22 16:11 | W.DS.TRANS ---
DC Summary - Coordinator Of Rehabilitation Services
-
Discharge Instructions:
Discharge Diagnosis/Procedures COPD with Acute Exacerbation
Acute Hypoxic Respiratory Failure due to
Pneumonia
Right Paraspinal and mediastinal lesion
Abnormal CT chest with bibasilar consolidation (
R >L), with large right-sided paraspinal soft
tissue mass suspicious for malignant process
Left-sided chest pain - non-anginal and it is
likely referred pain from paraspinal soft tissue
mass
Benign Hypertension
Severe Obstructive Sleep Apnea
Alcohol Use Disorder
Diet As tolerated
Activity As tolerated
Instructions:
Stand-Alone Forms:
Changes to Home Medications: Yes
Discharge Medications:
DC Medications w/original date entered in [facility]
atorvastatin 40 mg tablet 40 mg PO DAILY High cholesterol 12/29/21
aspirin 81 mg tablet,delayed release 81 mg PO DAILY 30 days #30 tabs 01/05/22
acetaminophen 500 mg tablet (Tylenol Extra Strength) 1,000 mg PO BIDPRN PRN mild pain 03/18/24
famotidine 20 mg tablet 20 mg PO DAILY Gastrointestinal Issue 03/18/24
ferrous sulfate 325 mg (65 mg iron) tablet (iron) 325 mg PO Q48H@0800 Supplement 03/18/24
fluticasone fur. 100 mcg-umeclid 62.5 mcg-vilant 25 mcg inhalat.powder (Trelegy Ellipta) 1 inh inhalation R DAILY Lung/Breathing Issues 03/18/24
lisinopril 20 mg-hydrochlorothiazide 12.5 mg tablet 1 tab PO DAILY Blood Pressure 03/18/24
multivitamin 1 tab PO DAILY Supplement 03/18/24
naproxen sodium 220 mg tablet (Aleve) 220 mg PO BID PRN mild pain 03/18/24
cefdinir 300 mg capsule 300 mg PO Q12H 3 days #6 caps 03/22/24
folic acid 1 mg tablet 1 mg PO DAILY #14 tabs 03/22/24
lisinopril 10 mg tablet 20 mg (2 x 10 mg) PO DAILY #60 tabs 03/22/24
nicotine 21 mg/24 hr daily transdermal patch 21 mg transdermal DAILY #28 ea 03/22/24
prednisone 10 mg tablet See Rx Instructions .Route .COMPLEX #22 tabs 03/22/24
thiamine HCl (vitamin B1) 100 mg tablet 100 mg PO DAILY #20 tabs 03/22/24
Home Medication Changes
Cefdinir, Lisinopril, Folic Acid, Thiamine, Prednisone Taper, and Nicotine Patch are new medications.
Pending Results: Yes
Additional Pending Results:
Final results of blood cultures
Total time spent discharging patient (in min): 36
--- NOTE | 2024-03-24 20:57 | W.DCSUMMARY ---
Discharge Summary
Discharge Data
Date of Admission: 03/18/24
Date of Discharge: 03/22/24
Total time spent discharging patient (in min): 36
-
Pending Results: Yes
Additional Pending Results:
Final results of blood cultures
Hospital Course
69 y/o male who presented with chest pain and shortness of breath. Patient was admitted with COPD exacerbation. Patient was also found to have a right paraspinal lesion. There was no concern for acute coronary syndrome. Patient was placed on
steroids and antibiotics, and pulmonary was consulted.
Neurosurgery was consulted given the location of the mass. MRI imaging of the thoracic spine was performed, and based on the imaging results, neurosurgery recommended biopsy of the lesion by interventional radiology, and there was no indication for
steroids. Cardiothoracic surgery was also consulted and also recommended biopsy by interventional radiology. Interventional radiology performed biopsy of the mass. Patient was advised to closely follow-up a tertiary care center at [facility]. He
and his outpatient physicians would also need to closely follow-up with the biopsy results.
Discharge Plan
-
Patient Disposition: Home (Routine Discharge)
Discharge Diagnosis/Procedures: COPD with Acute Exacerbation
Acute Hypoxic Respiratory Failure due to Pneumonia
Right Paraspinal and mediastinal lesion
Abnormal CT chest with bibasilar consolidation (R >L), with large right-sided paraspinal soft tissue mass suspicious for malignant process
Left-sided chest pain - non-anginal and it is likely referred pain from paraspinal soft tissue mass
Benign Hypertension
Severe Obstructive Sleep Apnea
Alcohol Use Disorder
Condition: Good
Diet: As tolerated
Activity: As tolerated
Referrals:
Mya Jama MD [Family Provider] - in less than 1 week
Denise Colindres DO [Active] - (3-4 weeks)
Veena Duncan CRNP [Non-Admitting Privileges] - in two to three weeks
Additional Discharge Medication Instructions: Cefdinir, Lisinopril, Folic Acid, Thiamine, Prednisone Taper, and Nicotine Patch are new medications.
Prescriptions:
New
folic acid 1 mg Tablet
1 mg PO DAILY Qty: 14 0RF
nicotine 21 mg/24 hr Patch 24 Hour
21 mg transdermal DAILY Qty: 28 1RF
thiamine HCl (vitamin B1) 100 mg Tablet
100 mg PO DAILY Qty: 20 0RF
lisinopril 10 mg Tablet
20 mg PO DAILY Qty: 60 1RF
cefdinir 300 mg capsule
300 mg PO Q12H 3 Days Qty: 6 0RF
prednisone 10 mg tablet
See Rx Instructions .ROUTE .COMPLEX Qty: 22 0RF
Rx Instructions:
Starting on March 23, 2024: 40 mg x1day; 30 mg x3days; 20 mg x3 days; 10 mg x3days
Continued
atorvastatin 40 MG tablet
40 mg PO DAILY
aspirin 81 MG tablet,delayed release (DR/EC)
81 mg PO DAILY 30 Days Qty: 30 0RF
multivitamin Tablet
1 tab PO DAILY
acetaminophen [Tylenol Extra Strength] 500 mg Tablet
1,000 mg PO BIDPRN PRN (Reason: mild pain)
famotidine 20 mg Tablet
20 mg PO DAILY
ferrous sulfate [iron] 325 mg (65 mg iron) Tablet
325 mg PO Q48H@0800
naproxen sodium [Aleve] 220 mg Tablet
220 mg PO BID PRN (Reason: mild pain)
Trelegy Ellipta 100-62.5-25 mcg Blister With Device
1 inh INHALATION R DAILY
Held
lisinopril-hydrochlorothiazide 20-12.5 mg Tablet
1 tab PO DAILY
Hold Instructions: Resume on 04/05/24. Do not resume this medication until and unless you are advised to do so by your outpatient physician.
Discharge Orders:
Discharge Patient (As Directed); Ordered 03/22/24
Ordered By: Roberto George
Discharge Date and Time
Discharge Date/Time: 03/22/24 16:40
Print Language: FIJIAN
== END 2024-03-22 16:40 | disposition home or self-care (01) | DRG 871 ==
LOC: 4 WEST ACU 02:56
PROVIDERS: Radiology Vascular & Interventional Radiology; Student in an Organized Health Care Education/Training Program; ADMITTING PHYSICIAN Hospitalist; ATTENDING PHYSICIAN Hospitalist; CONSULT PHYSICIAN Neurological Surgery; EMERGENCY PHYSICIAN Emergency Medicine; FAMILY PHYSICIAN Emergency Medicine; OTHER PHYSICIAN Internal Medicine Critical Care Medicine; OTHER PHYSICIAN Physician Assistant Surgical
PROC: 0BBM3ZX Excision of Bilateral Lungs, Percutaneous Approach, Diagnostic (ICD-10-PCS; 2024-03-21)
DX: A41.9 Sepsis, unspecified organism (principal); J96.01 Acute respiratory failure with hypoxia; J44.0 Chronic obstructive pulmonary disease with (acute) lower respiratory infection; J44.1 Chronic obstructive pulmonary disease with (acute) exacerbation; E87.1 Hypo-osmolality and hyponatremia; J98.11 Atelectasis; F17.210 Nicotine dependence, cigarettes, uncomplicated; I11.0 Hypertensive heart disease with heart failure; I50.9 Heart failure, unspecified; G47.33 Obstructive sleep apnea (adult) (pediatric); F10.10 Alcohol abuse, uncomplicated; R22.2 Localized swelling, mass and lump, trunk
CPT/HCPCS: 88305; 32408; 71275; 72157; 80048; 80053; 83880; 84145; 84443; 84484; 85025; 85027; 85610; 86803; 87040; 87070; 87205; 87449; 87899; 88333; 88341; 88342; 93005; 93970; 94640; 94660; 94761; 96374; 96375; 97116; 97162; 97166; 99152; 99291; 99406; A9575; Q9967

== ENCOUNTER → 2024-03-26 09:55 | Outpatient (REF) | payer MEDICARE, OTHER, SELFPAY ==
[2024-03-26 10:47] LABS: % Basophils 0.3 % (0-2); % Eosinophils 0.8 % (0-6); % Immature Granulocytes 1.6 % (0-0.5); % Lymphocytes 3.6 % (20.5-51.1); % Monocytes 3.6 % (1.7-9.3); % Neutrophils 90.1 % (42.2-75.2); Absolute Basophils 0.1 10^3/uL (0-0.2); Absolute Eosinophils 0.2 10^3/uL (0-0.7); Absolute Immature Granulocytes 0.3 10^3/uL (0-0.05); Absolute Lymphocytes 0.7 10^3/uL (1.2-3.4); Absolute Monocytes 0.7 10^3/uL (0.1-0.6); Absolute Neutrophils 18.3 10^3/uL (1.4-6.5); Hematocrit 37.1 % (39.0-52.0); Hemoglobin 11.9 g/dL (13.0-18.0); Mean Corp Hgb Conc. 32.1 g/dL (33.0-37.0); Mean Corpuscular Hgb 28.5 pg (27.0-31.0); Mean Platelet Volume 9.5 fL (7.4-10.4); Nucleated Red Blood Cells % 0 % (-); Platelet Count 567 10^3/uL (130-400); Red Blood Cell Count 4.17 10^6/uL (4.70-6.10); Red Cell Dist. Width 17.2 % (11.5-14.5); White Blood Cell Count 20.3 10^3/uL (4.8-10.8)
[2024-03-26 11:13] LABS: Iron 60 ug/dl (49-181)
[2024-03-26 11:23] LABS: Percent Saturation 15 % (20-50); Total Iron Binding Capacity 389 ug/dl (261-462)
[2024-03-26 11:49] LABS: Ferritin 15.1 ng/ml (17.9-464.0)
== END ==
LOC: REG 09:55
PROVIDERS: ATTENDING PHYSICIAN Internal Medicine Hematology & Oncology; FAMILY PHYSICIAN Emergency Medicine
DX: D75.839 Thrombocytosis, unspecified (principal); D50.9 Iron deficiency anemia, unspecified; D72.829 Elevated white blood cell count, unspecified
CPT/HCPCS: 36415; 82728; 83540; 83550; 85025

== ENCOUNTER → 2024-04-29 10:45 | Outpatient (REF) | payer MEDICARE, OTHER, SELFPAY ==
[2024-04-29 12:15] LABS: % Basophils 0.9 % (0-2); % Eosinophils 2.6 % (0-6); % Immature Granulocytes 1.8 % (0-0.5); % Lymphocytes 14.8 % (20.5-51.1); % Monocytes 13.1 % (1.7-9.3); % Neutrophils 66.8 % (42.2-75.2); Absolute Basophils 0.1 10^3/uL (0-0.2); Absolute Eosinophils 0.2 10^3/uL (0-0.7); Absolute Immature Granulocytes 0.1 10^3/uL (0-0.05); Absolute Lymphocytes 1.1 10^3/uL (1.2-3.4); Absolute Neutrophils 5.1 10^3/uL (1.4-6.5); Hematocrit 26.9 % (39.0-52.0); Hemoglobin 7.9 g/dL (13.0-18.0); Mean Corp Hgb Conc. 29.4 g/dL (33.0-37.0); Mean Corpuscular Hgb 24.4 pg (27.0-31.0); Mean Platelet Volume 9.5 fL (7.4-10.4); Nucleated Red Blood Cells % 0.3 % (-); Platelet Count 565 10^3/uL (130-400); Red Blood Cell Count 3.24 10^6/uL (4.70-6.10); Red Cell Dist. Width 18.6 % (11.5-14.5); White Blood Cell Count 7.7 10^3/uL (4.8-10.8)
[2024-04-29 12:33] LABS: Iron 264 ug/dl (49-181)
[2024-04-29 12:42] LABS: Percent Saturation 65 % (20-50); Total Iron Binding Capacity 403 ug/dl (261-462)
[2024-04-29 13:38] LABS: Ferritin 6.6 ng/ml (17.9-464.0)
== END ==
LOC: REG 10:45
PROVIDERS: ATTENDING PHYSICIAN Internal Medicine Hematology & Oncology; FAMILY PHYSICIAN Emergency Medicine
DX: D75.839 Thrombocytosis, unspecified (principal); D50.9 Iron deficiency anemia, unspecified; D72.829 Elevated white blood cell count, unspecified; J96.01 Acute respiratory failure with hypoxia; I50.30 Unspecified diastolic (congestive) heart failure
CPT/HCPCS: 36415; 82728; 83540; 83550; 85025

== ENCOUNTER 2024-05-07 06:26 | Day surgery (SDC) | payer MEDICARE, OTHER, SELFPAY ==
[2024-05-07 11:01] VITALS: BMI 25.8
[2024-05-07 11:02] VITALS: BP 144/68; BMI 25.8
[2024-05-07 14:06] VITALS: BP 110/73
[2024-05-07 14:15] VITALS: BP 120/65
[2024-05-07 14:30] VITALS: BP 120/56
== END 2024-05-07 14:55 | disposition home or self-care (01) ==
LOC: GI 06:26
PROVIDERS: ATTENDING PHYSICIAN Internal Medicine
DX: D50.0 Iron deficiency anemia secondary to blood loss (chronic) (principal); K44.9 Diaphragmatic hernia without obstruction or gangrene; K31.811 Angiodysplasia of stomach and duodenum with bleeding; K22.4 Dyskinesia of esophagus; K55.20 Angiodysplasia of colon without hemorrhage; D50.9 Iron deficiency anemia, unspecified; K31.819 Angiodysplasia of stomach and duodenum without bleeding
CPT/HCPCS: 44366

== ENCOUNTER → 2024-05-12 15:47 | Outpatient (REF) | payer MEDICARE, OTHER, SELFPAY ==
[2024-05-12 14:08] LABS: % Basophils 0.7 % (0-2); % Immature Granulocytes 5.1 % (0-0.5); % Lymphocytes 13.5 % (20.5-51.1); % Monocytes 8.2 % (1.7-9.3); % Neutrophils 69.5 % (42.2-75.2); Absolute Basophils 0.1 10^3/uL (0-0.2); Absolute Eosinophils 0.4 10^3/uL (0-0.7); Absolute Immature Granulocytes 0.6 10^3/uL (0-0.05); Absolute Lymphocytes 1.7 10^3/uL (1.2-3.4); Absolute Neutrophils 8.5 10^3/uL (1.4-6.5); Hematocrit 30.3 % (39.0-52.0); Hemoglobin 8.8 g/dL (13.0-18.0); Mean Corpuscular Hgb 25.8 pg (27.0-31.0); Mean Corpuscular Volume 88.9 fL (80.0-94.0); Mean Platelet Volume 9.2 fL (7.4-10.4); Nucleated Red Blood Cells % 0.3 % (-); Platelet Count 406 10^3/uL (130-400); Red Blood Cell Count 3.41 10^6/uL (4.70-6.10); Red Cell Dist. Width 26.1 % (11.5-14.5); White Blood Cell Count 12.2 10^3/uL (4.8-10.8)
[2024-05-12 14:24] LABS: Phosphorus 2.5 mg/dl (2.5-4.5)
== END ==
LOC: OIDL 15:47
PROVIDERS: ATTENDING PHYSICIAN Nurse Practitioner Family
DX: D75.839 Thrombocytosis, unspecified (principal)
CPT/HCPCS: 84100; 85025

== ENCOUNTER → 2024-07-01 10:25 | Outpatient (REF) | payer MEDICARE, OTHER, SELFPAY ==
[2024-07-01 11:31] LABS: % Eosinophils 3.4 % (0-6); % Immature Granulocytes 1.6 % (0-0.5); % Lymphocytes 14.5 % (20.5-51.1); % Monocytes 13.5 % (1.7-9.3); Absolute Basophils 0.1 10^3/uL (0-0.2); Absolute Eosinophils 0.3 10^3/uL (0-0.7); Absolute Immature Granulocytes 0.1 10^3/uL (0-0.05); Absolute Lymphocytes 1.2 10^3/uL (1.2-3.4); Absolute Monocytes 1.1 10^3/uL (0.1-0.6); Absolute Neutrophils 5.5 10^3/uL (1.4-6.5); Hematocrit 31.3 % (39.0-52.0); Hemoglobin 9.8 g/dL (13.0-18.0); Mean Corp Hgb Conc. 31.3 g/dL (33.0-37.0); Mean Corpuscular Hgb 28.8 pg (27.0-31.0); Mean Corpuscular Volume 92.1 fL (80.0-94.0); Mean Platelet Volume 9.2 fL (7.4-10.4); Nucleated Red Blood Cells % 0 % (-); Platelet Count 532 10^3/uL (130-400); Red Cell Dist. Width 21.2 % (11.5-14.5); White Blood Cell Count 8.3 10^3/uL (4.8-10.8)
[2024-07-01 12:12] LABS: Iron 191 ug/dl (49-181)
[2024-07-01 12:22] LABS: Percent Saturation 46 % (20-50); Total Iron Binding Capacity 407 ug/dl (261-462)
[2024-07-01 12:46] LABS: Ferritin 11.2 ng/ml (17.9-464.0)
== END ==
LOC: REG 10:25
PROVIDERS: ATTENDING PHYSICIAN Internal Medicine Hematology & Oncology; FAMILY PHYSICIAN Emergency Medicine
DX: D75.839 Thrombocytosis, unspecified (principal); D50.9 Iron deficiency anemia, unspecified; D72.829 Elevated white blood cell count, unspecified
CPT/HCPCS: 36415; 82728; 83540; 83550; 85025

== ENCOUNTER → 2024-07-23 10:11 | Outpatient (REF) | payer MEDICARE, OTHER, SELFPAY | LOC: HWRCS 10:11 | PROVIDERS: ATTENDING PHYSICIAN Internal Medicine Cardiovascular Disease; FAMILY PHYSICIAN Emergency Medicine | DX: I35.0 Nonrheumatic aortic (valve) stenosis (principal) | CPT/HCPCS: 93306 ==

== ENCOUNTER → 2024-08-08 08:22 | Outpatient (REF) | payer MEDICARE, OTHER, SELFPAY ==
[2024-08-08 09:04] LABS: % Basophils 1.3 % (0-2); % Eosinophils 4.3 % (0-6); % Immature Granulocytes 2.2 % (0-0.5); % Lymphocytes 16.7 % (20.5-51.1); % Monocytes 16.7 % (1.7-9.3); % Neutrophils 58.8 % (42.2-75.2); Absolute Basophils 0.1 10^3/uL (0-0.2); Absolute Eosinophils 0.3 10^3/uL (0-0.7); Absolute Immature Granulocytes 0.2 10^3/uL (0-0.05); Absolute Lymphocytes 1.3 10^3/uL (1.2-3.4); Absolute Monocytes 1.3 10^3/uL (0.1-0.6); Absolute Neutrophils 4.6 10^3/uL (1.4-6.5); Hematocrit 29.1 % (39.0-52.0); Hemoglobin 8.4 g/dL (13.0-18.0); Mean Corp Hgb Conc. 28.9 g/dL (33.0-37.0); Mean Corpuscular Hgb 23.5 pg (27.0-31.0); Mean Corpuscular Volume 81.5 fL (80.0-94.0); Mean Platelet Volume 8.9 fL (7.4-10.4); Nucleated Red Blood Cells % 0.3 % (-); Platelet Count 554 10^3/uL (130-400); Red Blood Cell Count 3.57 10^6/uL (4.70-6.10); White Blood Cell Count 7.8 10^3/uL (4.8-10.8)
[2024-08-08 09:29] LABS: Iron 39 ug/dl (49-181)
[2024-08-08 09:54] LABS: Anisocytosis 1+; Hypochromasia 2+; Normal RBC Morphology No
[2024-08-08 09:55] LABS: Basophilic Stippling 1+; Ovalocytes 1+; Polychromasia 1+; Target Cells 1+
== END ==
LOC: REG 08:22
PROVIDERS: ATTENDING PHYSICIAN Internal Medicine Hematology & Oncology; FAMILY PHYSICIAN Emergency Medicine
DX: D75.839 Thrombocytosis, unspecified (principal); D50.9 Iron deficiency anemia, unspecified; D72.829 Elevated white blood cell count, unspecified
CPT/HCPCS: 36415; 82728; 83540; 85025

== ENCOUNTER → 2024-08-12 08:37 | Outpatient (REF) | payer MEDICARE, OTHER, SELFPAY | LOC: MRI 3T 08:37 | PROVIDERS: ATTENDING PHYSICIAN Internal Medicine Hematology & Oncology; FAMILY PHYSICIAN Emergency Medicine | DX: D75.839 Thrombocytosis, unspecified (principal); D50.9 Iron deficiency anemia, unspecified; D72.829 Elevated white blood cell count, unspecified | CPT/HCPCS: 72157; A9575 ==

== ENCOUNTER → 2024-10-21 11:27 | Outpatient (REF) | payer MEDICARE, OTHER, SELFPAY ==
[2024-10-21 12:45] LABS: Hematocrit 27.9 % (39.0-52.0); Hemoglobin 7.9 g/dL (13.0-18.0); Mean Corp Hgb Conc. 28.3 g/dL (33.0-37.0); Mean Corpuscular Hgb 22.4 pg (27.0-31.0); Mean Platelet Volume 9.2 fL (7.4-10.4); Platelet Count 422 10^3/uL (130-400); Red Blood Cell Count 3.53 10^6/uL (4.70-6.10); Red Cell Dist. Width 22.3 % (11.5-14.5); White Blood Cell Count 7.4 10^3/uL (4.8-10.8)
[2024-10-21 12:46] LABS: Iron 30 ug/dl (49-181)
[2024-10-21 13:53] LABS: % Basophils 0.4 % (0-2); % Eosinophils 3.2 % (0-6); % Immature Granulocytes 5.4 % (0-0.5); % Lymphocytes 10.5 % (20.5-51.1); % Monocytes 12.7 % (1.7-9.3); % Neutrophils 67.8 % (42.2-75.2); Absolute Eosinophils 0.2 10^3/uL (0-0.7); Absolute Immature Granulocytes 0.4 10^3/uL (0-0.05); Absolute Lymphocytes 0.8 10^3/uL (1.2-3.4); Absolute Monocytes 0.9 10^3/uL (0.1-0.6); Nucleated Red Blood Cells % 0.4 % (-)
== END ==
LOC: REG 11:27
PROVIDERS: ATTENDING PHYSICIAN Internal Medicine Hematology & Oncology; FAMILY PHYSICIAN Emergency Medicine
DX: D75.839 Thrombocytosis, unspecified (principal); D50.9 Iron deficiency anemia, unspecified; D72.829 Elevated white blood cell count, unspecified
CPT/HCPCS: 36415; 82728; 83540; 85025

== ENCOUNTER → 2024-12-06 08:52 | Outpatient (REF) | payer MEDICARE, OTHER, SELFPAY ==
[2024-12-06 09:46] LABS: % Basophils 0.7 % (0-2); % Eosinophils 4.7 % (0-6); % Immature Granulocytes 1.4 % (0-0.5); % Monocytes 13.8 % (1.7-9.3); % Neutrophils 70.4 % (42.2-75.2); Absolute Basophils 0.1 10^3/uL (0-0.2); Absolute Eosinophils 0.4 10^3/uL (0-0.7); Absolute Immature Granulocytes 0.1 10^3/uL (0-0.05); Absolute Lymphocytes 0.8 10^3/uL (1.2-3.4); Absolute Monocytes 1.2 10^3/uL (0.1-0.6); Absolute Neutrophils 6.3 10^3/uL (1.4-6.5); Hematocrit 28.9 % (39.0-52.0); Hemoglobin 7.9 g/dL (13.0-18.0); Mean Corp Hgb Conc. 27.3 g/dL (33.0-37.0); Mean Corpuscular Hgb 22.6 pg (27.0-31.0); Mean Corpuscular Volume 82.6 fL (80.0-94.0); Mean Platelet Volume 9.1 fL (7.4-10.4); Nucleated Red Blood Cells % 0.6 % (-); Platelet Count 501 10^3/uL (130-400); Red Cell Dist. Width 22.5 % (11.5-14.5); White Blood Cell Count 8.9 10^3/uL (4.8-10.8)
[2024-12-06 09:54] LABS: Iron 171 ug/dl (49-181)
[2024-12-06 10:03] LABS: Percent Saturation 38 % (20-50); Total Iron Binding Capacity 439 ug/dl (261-462)
[2024-12-06 10:28] LABS: Ferritin 7.6 ng/ml (17.9-464.0)
[2024-12-06 11:46] LABS: Normal RBC Morphology No
[2024-12-06 11:49] LABS: Ovalocytes FEW; Polychromasia FEW; Stomatocytes FEW; Target Cells FEW; Tear Drop Red Blood Cells FEW
== END ==
LOC: REG 08:52
PROVIDERS: ATTENDING PHYSICIAN Internal Medicine Hematology & Oncology; FAMILY PHYSICIAN Emergency Medicine
DX: D75.839 Thrombocytosis, unspecified (principal); D50.9 Iron deficiency anemia, unspecified; D72.829 Elevated white blood cell count, unspecified
CPT/HCPCS: 36415; 82728; 83540; 83550; 85025

== ENCOUNTER → 2024-12-15 12:10 | Outpatient (REF) | payer MEDICARE, OTHER, SELFPAY ==
[2024-12-15 13:26] LABS: Blood Urea Nitrogen 18 mg/dl (9-20); Calcium 9.2 mg/dl (8.4-10.2); Carbon Dioxide 25 mmol/L (22-30); Chloride 101 mmol/L (98-107); Glucose 88 mg/dl (70-99); Potassium 4.6 mmol/L (3.5-5.1); Sodium 136 mmol/L (135-145); eGFR > 60.00
== END ==
LOC: REG 12:10
PROVIDERS: ATTENDING PHYSICIAN Internal Medicine Hematology & Oncology
DX: D75.839 Thrombocytosis, unspecified (principal); D50.9 Iron deficiency anemia, unspecified; D72.829 Elevated white blood cell count, unspecified
CPT/HCPCS: 36415; 80048

== ENCOUNTER → 2024-12-16 13:16 | Outpatient (REF) | payer MEDICARE, OTHER, SELFPAY | LOC: RAD 13:16 | PROVIDERS: ATTENDING PHYSICIAN Internal Medicine Hematology & Oncology; FAMILY PHYSICIAN Emergency Medicine | DX: D75.839 Thrombocytosis, unspecified (principal); D50.9 Iron deficiency anemia, unspecified; D72.829 Elevated white blood cell count, unspecified | CPT/HCPCS: 71260; Q9967 ==

== ENCOUNTER → 2024-12-17 12:17 | Outpatient (REF) | payer MEDICARE, OTHER, SELFPAY ==
[2024-12-17 09:52] LABS: % Basophils 1.5 % (0-2); % Eosinophils 4.5 % (0-6); % Immature Granulocytes 1.7 % (0-0.5); % Lymphocytes 10.8 % (20.5-51.1); % Monocytes 13.9 % (1.7-9.3); % Neutrophils 67.6 % (42.2-75.2); Absolute Basophils 0.1 10^3/uL (0-0.2); Absolute Eosinophils 0.4 10^3/uL (0-0.7); Absolute Immature Granulocytes 0.2 10^3/uL (0-0.05); Absolute Lymphocytes 0.9 10^3/uL (1.2-3.4); Absolute Monocytes 1.2 10^3/uL (0.1-0.6); Absolute Neutrophils 5.9 10^3/uL (1.4-6.5); Hemoglobin 8.7 g/dL (13.0-18.0); Mean Corp Hgb Conc. 27.2 g/dL (33.0-37.0); Mean Corpuscular Hgb 21.5 pg (27.0-31.0); Mean Corpuscular Volume 79.2 fL (80.0-94.0); Mean Platelet Volume 8.7 fL (7.4-10.4); Platelet Count 631 10^3/uL (130-400); Red Blood Cell Count 4.04 10^6/uL (4.70-6.10); Red Cell Dist. Width 21.3 % (11.5-14.5); White Blood Cell Count 8.7 10^3/uL (4.8-10.8)
== END ==
LOC: OIDL 12:17
PROVIDERS: ATTENDING PHYSICIAN Nurse Practitioner Primary Care
DX: D75.839 Thrombocytosis, unspecified (principal)
CPT/HCPCS: 85025

== ENCOUNTER → 2025-01-08 08:56 | Outpatient (REF) | payer MEDICARE, OTHER, SELFPAY ==
[2025-01-08 09:45] LABS: % Basophils 0.5 % (0-2); % Eosinophils 2.3 % (0-6); % Immature Granulocytes 2.7 % (0-0.5); % Lymphocytes 9.2 % (20.5-51.1); % Monocytes 19.5 % (1.7-9.3); % Neutrophils 65.8 % (42.2-75.2); Absolute Eosinophils 0.1 10^3/uL (0-0.7); Absolute Immature Granulocytes 0.2 10^3/uL (0-0.05); Absolute Lymphocytes 0.6 10^3/uL (1.2-3.4); Absolute Monocytes 1.2 10^3/uL (0.1-0.6); Hematocrit 32.5 % (39.0-52.0); Hemoglobin 9.5 g/dL (13.0-18.0); Mean Corp Hgb Conc. 29.2 g/dL (33.0-37.0); Mean Corpuscular Hgb 25.8 pg (27.0-31.0); Mean Corpuscular Volume 88.3 fL (80.0-94.0); Mean Platelet Volume 8.9 fL (7.4-10.4); Nucleated Red Blood Cells % 0 % (-); Platelet Count 605 10^3/uL (130-400); Red Blood Cell Count 3.68 10^6/uL (4.70-6.10); Red Cell Dist. Width 28.4 % (11.5-14.5)
[2025-01-08 10:36] LABS: Iron 64 ug/dl (49-181)
[2025-01-08 11:11] LABS: Ferritin 61.8 ng/ml (17.9-464.0)
== END ==
LOC: REG 08:56
PROVIDERS: ATTENDING PHYSICIAN Internal Medicine Hematology & Oncology; FAMILY PHYSICIAN Emergency Medicine
DX: D75.839 Thrombocytosis, unspecified (principal); D50.9 Iron deficiency anemia, unspecified; D72.829 Elevated white blood cell count, unspecified
CPT/HCPCS: 36415; 82728; 83540; 85025

== ENCOUNTER → 2025-02-03 11:22 | Outpatient (REF) | payer MEDICARE, OTHER, SELFPAY | LOC: HWRCS 11:22 | PROVIDERS: ATTENDING PHYSICIAN Internal Medicine Cardiovascular Disease; FAMILY PHYSICIAN Emergency Medicine | DX: I35.0 Nonrheumatic aortic (valve) stenosis (principal) | CPT/HCPCS: 93306 ==

== ENCOUNTER → 2025-02-10 06:43 | Outpatient (REF) | payer MEDICARE, OTHER, SELFPAY | LOC: RAD 06:43 | PROVIDERS: ATTENDING PHYSICIAN Internal Medicine Cardiovascular Disease; FAMILY PHYSICIAN Emergency Medicine | DX: I35.0 Nonrheumatic aortic (valve) stenosis (principal) | CPT/HCPCS: 93880 ==

== ENCOUNTER → 2025-02-11 08:22 | Outpatient (REF) | payer MEDICARE, OTHER, SELFPAY | LOC: HWRAD 08:22 | PROVIDERS: ATTENDING PHYSICIAN Internal Medicine; FAMILY PHYSICIAN Emergency Medicine | DX: R91.8 Other nonspecific abnormal finding of lung field (principal) | CPT/HCPCS: 71250 ==

== ENCOUNTER 2025-02-16 06:38 | Day surgery (SDC) | payer MEDICARE, OTHER, SELFPAY ==
[2025-02-05 14:04] VITALS: BMI 25.2
[2025-02-16] VITALS (12 sets, daily range): BP systolic 105–140; BP diastolic 51–88; BMI 25.2
[2025-02-16] MEDS: DUONEB 3 ML INH ×3 (08:38→13:57)
[2025-02-16] MEDS: SOLU-MEDROL PF 40 MG IV (13:35)
[2025-02-16] MEDS: MUCINEX 1200 MG PO (13:35)
[2025-02-16] MEDS: NICODERM TRANSDERMAL 21 MG TRANSDERM (13:36)
== END 2025-02-16 14:47 | disposition home or self-care (01) ==
LOC: SDS 06:38
PROVIDERS: ATTENDING PHYSICIAN Internal Medicine Critical Care Medicine
DX: R09.89 Other specified symptoms and signs involving the circulatory and respiratory systems (principal); J84.10 Pulmonary fibrosis, unspecified; R59.0 Localized enlarged lymph nodes; R06.02 Shortness of breath; J98.4 Other disorders of lung
CPT/HCPCS: 31629; 31652; 31628; 31645; 31624; 31623; 31654; 31627; 88173; 88305; 88312; 71045; 76000; 87070; 87102; 87116; 87205; 88112; 88333; 94640; C1887

== ENCOUNTER → 2025-03-17 11:07 | Outpatient (REF) | payer MEDICARE, OTHER, SELFPAY ==
[2025-03-17 12:02] LABS: % Basophils 0.8 % (0-2); % Immature Granulocytes 1.9 % (0-0.5); % Lymphocytes 8.6 % (20.5-51.1); % Monocytes 12.8 % (1.7-9.3); % Neutrophils 71.9 % (42.2-75.2); Absolute Basophils 0.1 10^3/uL (0-0.2); Absolute Eosinophils 0.3 10^3/uL (0-0.7); Absolute Immature Granulocytes 0.2 10^3/uL (0-0.05); Absolute Lymphocytes 0.7 10^3/uL (1.2-3.4); Absolute Monocytes 1.1 10^3/uL (0.1-0.6); Hematocrit 21.2 % (39.0-52.0); Hemoglobin 5.8 g/dL (13.0-18.0); Mean Corp Hgb Conc. 27.4 g/dL (33.0-37.0); Mean Corpuscular Hgb 19.7 pg (27.0-31.0); Mean Corpuscular Volume 71.9 fL (80.0-94.0); Mean Platelet Volume 9.5 fL (7.4-10.4); Nucleated Red Blood Cells % 0.4 % (-); Platelet Count 375 10^3/uL (130-400); Red Blood Cell Count 2.95 10^6/uL (4.70-6.10); Red Cell Dist. Width 21.5 % (11.5-14.5); White Blood Cell Count 8.3 10^3/uL (4.8-10.8)
[2025-03-17 12:23] LABS: Iron 27 ug/dl (49-181)
[2025-03-17 12:31] LABS: Percent Saturation 5 % (20-50); Total Iron Binding Capacity 492 ug/dl (261-462)
[2025-03-17 13:04] LABS: Ferritin 7.6 ng/ml (17.9-464.0)
== END ==
LOC: REG 11:07
PROVIDERS: ATTENDING PHYSICIAN Internal Medicine Hematology & Oncology; FAMILY PHYSICIAN Emergency Medicine
DX: D75.839 Thrombocytosis, unspecified (principal); D50.9 Iron deficiency anemia, unspecified; D72.829 Elevated white blood cell count, unspecified; C49.9 Malignant neoplasm of connective and soft tissue, unspecified; C78.00 Secondary malignant neoplasm of unspecified lung
CPT/HCPCS: 36415; 82728; 83540; 83550; 85025

== ENCOUNTER 2025-03-18 07:29 | Outpatient (RCR) | payer MEDICARE, OTHER, SELFPAY ==
[2025-03-18 08:32] VITALS: BP 112/51
[2025-03-18 08:52] VITALS: BP 120/59
[2025-03-18 10:35] VITALS: BP 112/63
[2025-03-18 10:53] VITALS: BP 112/63
[2025-03-18 11:10] VITALS: BP 124/60
[2025-03-18 13:21] VITALS: BP 133/62
[2025-03-23 10:49] LABS: % Basophils 1.4 % (0-2); % Eosinophils 4.5 % (0-6); % Lymphocytes 12.3 % (20.5-51.1); % Neutrophils 66.8 % (42.2-75.2); Absolute Basophils 0.1 10^3/uL (0-0.2); Absolute Eosinophils 0.4 10^3/uL (0-0.7); Absolute Immature Granulocytes 0.3 10^3/uL (0-0.05); Absolute Lymphocytes 1.2 10^3/uL (1.2-3.4); Absolute Monocytes 1.2 10^3/uL (0.1-0.6); Absolute Neutrophils 6.5 10^3/uL (1.4-6.5); Hematocrit 28.8 % (39.0-52.0); Mean Corp Hgb Conc. 27.8 g/dL (33.0-37.0); Mean Corpuscular Hgb 21.7 pg (27.0-31.0); Mean Corpuscular Volume 78.3 fL (80.0-94.0); Platelet Count 449 10^3/uL (130-400); Red Blood Cell Count 3.68 10^6/uL (4.70-6.10); Red Cell Dist. Width 23.5 % (11.5-14.5); White Blood Cell Count 9.8 10^3/uL (4.8-10.8)
[2025-03-23 13:12] LABS: Vitamin D, 25-OH*** 49.2 ng/mL (30-80)
[2025-03-30 10:51] LABS: % Basophils 1.6 % (0-2); % Immature Granulocytes 5.3 % (0-0.5); % Lymphocytes 9.1 % (20.5-51.1); % Monocytes 10.7 % (1.7-9.3); % Neutrophils 70.3 % (42.2-75.2); Absolute Basophils 0.2 10^3/uL (0-0.2); Absolute Eosinophils 0.4 10^3/uL (0-0.7); Absolute Immature Granulocytes 0.7 10^3/uL (0-0.05); Absolute Lymphocytes 1.1 10^3/uL (1.2-3.4); Absolute Monocytes 1.3 10^3/uL (0.1-0.6); Absolute Neutrophils 8.5 10^3/uL (1.4-6.5); Hematocrit 29.5 % (39.0-52.0); Hemoglobin 8.6 g/dL (13.0-18.0); Mean Corp Hgb Conc. 29.2 g/dL (33.0-37.0); Mean Corpuscular Volume 85.8 fL (80.0-94.0); Platelet Count 744 10^3/uL (130-400); Red Blood Cell Count 3.44 10^6/uL (4.70-6.10); Red Cell Dist. Width 32.2 % (11.5-14.5); White Blood Cell Count 12.2 10^3/uL (4.8-10.8)
[2025-03-30 13:17] LABS: Phosphorus 3.1 mg/dl (2.5-4.5)
== END 2025-04-11 23:59 | disposition home or self-care (01) ==
LOC: OID 07:29
PROVIDERS: ATTENDING PHYSICIAN Internal Medicine Hematology & Oncology; FAMILY PHYSICIAN Emergency Medicine
DX: D75.839 Thrombocytosis, unspecified (principal); D50.0 Iron deficiency anemia secondary to blood loss (chronic); D50.9 Iron deficiency anemia, unspecified; D72.829 Elevated white blood cell count, unspecified; C49.9 Malignant neoplasm of connective and soft tissue, unspecified; C78.00 Secondary malignant neoplasm of unspecified lung
CPT/HCPCS: 36415; 36430; 82306; 84100; 85025; 86850; 86900; 86901; 86920; P9016

== ENCOUNTER → 2025-04-10 08:54 | Outpatient (REF) | payer MEDICARE, OTHER, SELFPAY ==
[2025-04-10 09:28] VITALS: BP 134/78; BP_SYST 91
[2025-04-10 09:30] LABS: INR 0.94; PT 12.9 Sec (11.4-14.6)
[2025-04-10 09:38] LABS: Hematocrit 36.1 % (39.0-52.0); Hemoglobin 10.8 g/dL (13.0-18.0); Mean Corp Hgb Conc. 29.9 g/dL (33.0-37.0); Mean Corpuscular Volume 96.8 fL (80.0-94.0); Mean Platelet Volume 8.8 fL (7.4-10.4); Platelet Count 535 10^3/uL (130-400); Red Blood Cell Count 3.73 10^6/uL (4.70-6.10); Red Cell Dist. Width 30.8 % (11.5-14.5); White Blood Cell Count 7.3 10^3/uL (4.8-10.8)
--- NOTE | 2025-04-10 10:09 | PTCARENOTE ---
spoke with Dr Colindres, ordering physician, and confirmed order for samples to be sent for pathology
[2025-04-10 11:10] VITALS: BP 137/87; BP_SYST 88
[2025-04-10 11:15] VITALS: BP 106/54; BP_SYST 89
[2025-04-10 11:30] VITALS: BP 138/68; BP_SYST 96
[2025-04-10 11:45] VITALS: BP 134/91; BP_SYST 96
[2025-04-10 12:00] VITALS: BP 124/92; BP_SYST 94
== END ==
LOC: RADI 08:54
PROVIDERS: ATTENDING PHYSICIAN Internal Medicine; FAMILY PHYSICIAN Emergency Medicine; OTHER PHYSICIAN Physician Assistant
DX: C38.3 Malignant neoplasm of mediastinum, part unspecified (principal); D68.8 Other specified coagulation defects
CPT/HCPCS: 88305; 32408; 36415; 85027; 85610; 88333; 99152

== ENCOUNTER 2025-05-14 12:05 | Inpatient (IN) | payer MEDICARE, OTHER, SELFPAY ==
[2025-05-14] VITALS (18 sets, daily range): BP systolic 99–149; BP diastolic 56–95; PULSE 2–96
--- NOTE | 2025-05-14 09:53 | ED.GENMED ---
History of Present Illness
General
Chief Complaint: Breathing Problem
Source: patient
Exam Limitations: none
Time Seen by Provider: 05/14/25 09:44
Nursing documentation reviewed up to this point in time: agreed with
History of Present Illness
History of Present Illness:
Patient is a pleasant 70-year-old man who arrives in acute respiratory distress, limiting history. Patient states he has been short of breath for several days. Patient has audible wheezing. Patient reports a history of COPD, smoking cigarettes
and drinking alcohol. Patient started on BiPAP shortly after arrival. Patient also reports increased cough but denies fever. Patient denies black stools and bloody stools. Patient reports that sometimes the stools do look dark. Patient denies
chest pain.
Past History
Past History
ED Past Medical History: CHF, COPD, HTN, Hypercholesterolemia, Other (AVM on endoscopy/upper GI bleed) and Other (Reactive thrombocytosis)
ED Past Surgical History: Other
Social History
Tobacco: Smoker
Alcohol: Daily
Drug: None
Personal:
Living: with family
Employment: Retired
Family History
Family History: Hypertension
Review of Systems
Review of Systems
Allergies reviewed?: Yes
All Other Systems: ROS reviewed and negative except as documented in HPI and ROS
Constitutional: Reports fatigue
EENT: Reports no symptoms
Respiratory: Reports cough and trouble breathing
Cardiac: Reports no symptoms
ABD/GI: Reports no symptoms
: Reports no symptoms
Musculoskeletal: Reports no symptoms
Skin: Reports no symptoms
Neurological: Reports no symptoms
Endocrine: Reports no symptoms
Hematologic/Lymphatic: Reports no symptoms
Psychiatric: Reports no symptoms
Phy Exam
Physical Exam
Physical Exam:
Physical Exam
General: Pale, tachypneic but awake
Neck: supple. no meningeal signs. normal psoterior pharynx
Heart: Tachycardic
Lungs: Moderate to severe respiratory distress, audible wheezing
Abdomen: normal bowel sounds. not tender. no CVAT. Unfortunately not able to do rectal exam to check stool due to patient's shortness of breath and being on BiPAP
Neuro: alert and oriented. no focal neurological deficits
Skin: no rash
Psychiatric: well kept. interactive and cooperative
Extremities: 1+ pitting edema in bilateral lower extremities. Negative Homans' sign
Scores
Heart Failure Risk
Heart Failure Risk Score: Not Applicable
Course
Orders/Labs/Results
Orders:
Orders
05/14/25
Electrocardiogram (*1) Stat
Comment: DONE EMR
05/14/25 Breakfast
Cholesterol Lowering
Cholesterol Lowering: Sodium, 2 Gram
05/14/25 09:47
Albuterol Sulfate [Ventolin Nebules] 15 mg INH R NOW STA
Dexamethasone Sod Phosphate [Decadron] 10 mg IV NOW STA
05/14/25 09:49
CR Chest Portable - 1 View Urgent
Comment:
Reason For Exam: SOB
Reason Study Needs to be Portable: Patient Unstable
05/14/25 09:57
Complete Blood Count/With Diff Urgent
Comprehensive Metabolic Panel Urgent
NT-proBNP Urgent
Troponin I Urgent
05/14/25 10:21
Venous Blood Gas Urgent
%Oxygen/Room Air: nasal oxygen
05/14/25 10:43
LevoFLOXacin 750 MG/150 ML [Levaquin] 750 mg in 150 ml IV NOW
05/14/25 10:44
* Blood Bank Products Urgent
'lobo Orders: Kimberley
Blood Bank Products: *Packed RBC Leuko(PRBC's)
Quantity: 2
Transfuse Today: Yes
Reason: Anemia
IV Insert/Care/Rem.- Treatment PRN
05/14/25 11:30
Admit/Transfer Patient As Directed
Co-Sign Provider:
Level of Care: Inpatient admission
Assign to:: IMU- Intermediate Care
Physician / Group: pranav/medicine
Diagnosis: acute hypoxic resp failure, acute blood loss anemia, hyponatremia
Reason for Hospitalization: acute hypoxic resp failure, acute blood loss anemia, hyponatremia
Expected length of stay greater than two midnights?: Yes
ELOS- Estimated Length of Stay in days: 3
I certify the patient meets the requirements for IP care: Yes
05/14/25 11:31
PRN Pain Medication Management As Directed
May give lesser potent ordered pain med per pt: Yes
preference::
Protocol:: Medication orders for pain may be administered in a
manner that supports deferring to patient preference
when the pt is:
- Requesting an ordered lesser potent pain medication.
Least to most potent pain medications are defined
as: acetaminophen < NSAID < tramadol < opioids
(morphine, oxycodone, hydromorphone).
- Requesting a lesser dose of the same medication IF
ORDERED.
- Requesting a less intrusive route of administration
if both routes are prescribed by the provider (PO <
IV).
05/14/25 11:33
Code Status As Directed
Resuscitation Status: Full Code
05/14/25 11:48
Type And Crossmatch [Type+Screen] Urgent
05/14/25 12:24
COVID-19 Antigen Routine
Source: Nasal Swab
Influenza A+B Rapid Molecular Routine
DARIUS Source: Nasal Swab
Specimen Description:
05/14/25 12:36
HGB [Hemoglobin] Q8H
Troponin I Q6H
0.9% Sodium Chloride [Nss (Preservative Free)] See Protocol IV PRN PRN
Azithromycin 500 mg/250 ml [Zithromax Infusion] 500 mg in 250 ml IV Q24H
Bisacodyl [Dulcolax] 10 mg RECTAL [id number] PRN
Budesonide [Pulmicort] 0.5 mg INH R BID
CefTRIAXone [Rocephin] 1,000 mg IV Q24H
Docusate W/Senna [Senokot-S] 1 tablet PO BIDPRN PRN
FOLic ACID [Folvite] 1 mg PO DAILY
FOLic ACID [Folvite] 1 mg 0.9% Sodium Chloride 50 ml [Nss] 50 ml IV DAILYPRN
Ipratropium/Albuterol Sulfate [Duoneb] 3 ml INH R Q4HPRN PRN
Lorazepam [Ativan] 1 mg PO Q2HPRN PRN
Lorazepam [Ativan] 2 mg IV Q1HPRN PRN
Pantoprazole [Protonix IV] 80 mg IV BID
Polyethylene Glycol Powder [Miralax] 17 grams PO DAILYPRN PRN
05/14/25 12:36
Add On- LAB Routine
Tests Added?: tsh with reflex ft4, iron, iron sat, ferritin, tibc, b12, folate
Echo 2D MMode Color/Doppler Routine
Reason for Study: sob
CT Chest With Iv Contrast Routine
Comment:
Reason For Exam: hypoxia
Case Management Consult Once
Case Management Consult: Other
Comment: Substance abuse counseling
Consult Gastroenterology [GASTROINTESTINAL CONSULT] Routine
Consulting Provider: Matt Gutierrez
Was physician already notified: Yes
DIETARY IP CONSULT Routine
Reason for Consult: Nutrition support, possible refeeding guidelines
It Network Engineer Consult Routine
Consulting Provider: Chaitanya Nicholas
Was physician already notified: Yes
Alcohol Urgent
B-Hydroxybutyrate Urgent
GGTP Urgent
Magnesium Urgent
PTT Urgent
Phosphorus Urgent
Prothrombin Time Urgent
Urinalysis Routine
Urine Creatinine Routine
Urine Drug Abuse Screen Routine
Urine Sodium Routine
Influenza A+B Rapid Molecular Routine
DARIUS Source: Nasal Swab
Specimen Description:
Respiratory Culture/Gram Stain Routine
DARIUS Source: Sputum
Specimen Description:
Respiratory Culture/Gram Stain Routine
DARIUS Source: Sputum
Specimen Description:
Activity As Directed
Activity Level: As Tolerated
MSAS SCORE As Directed
MSAS Score 0-4: Repeat MSAS every 2 hours until 0-4 for three consecutive assessments, then every 4 hours x 48
hours.
MSAS Score 5-7: For MILD withdrawl symptoms. Repeat MSAS and RASS every 2 hours
MSAS Score 8-11: For MODERATE withdrawal symptoms. Repeat MSAS and RASS every 1 hour. Consider ICU or IMU
level of care.
MSAS Score > 11: For SEVERE withdrawal symptoms. Repeat MSAS and RASS every 1 hour. Notify provider, consider
ICU level of care.
MSAS Additional Instructions: If no improvement or no decrease in score from severe to moderate within 12
hours, consult psychiatry
MSAS Notify Provider: Notify provider if patient requires more than 10 mg of Lorazepam in eight hour period.
Vital Signs As Directed
Frequency: Per unit guidelines
Bipap [RESP] Routine
Patient to use own unit?: No
Inspiratory Pressure (cm H2O): 10
Expiratory Pressure (cm H2O): 5
O2 Therapy [RESP] Routine
Titrate/Wean O2 to maintain O2 sat greater than (%): 88
Pulse Ox/spot Check [RESP] Routine
Quantity: 1
Ot Eval And Treat Routine
Pt Eval And Treat Routine
Activity Level: As Tolerated
DX Deep Vein Thrombosis Video Routine
05/14/25 12:48
Lorazepam [Ativan] 1 mg PO Q1HPRN PRN
05/14/25 18:36
Troponin I Q6H
05/14/25 20:00
Thiamine Injection 200 mg IV Q12
05/14/25 20:36
HGB [Hemoglobin] Q8H
05/15/25 00:36
Troponin I Q6H
05/15/25 04:36
HGB [Hemoglobin] Q8H
05/15/25 06:00
Complete Blood Count/No Diff IN AM
Comprehensive Metabolic Panel IN AM
05/15/25 08:00
Atorvastatin [Lipitor] 40 mg PO DAILY
05/17/25 20:00
Thiamine HCl [Vitamin B1] 100 mg PO BID
Abnormal Lab Results
05/14/25 05/14/25 05/14/25
09:57 10:21 11:48
WBC 17.2 H 10^3/uL
(4.8-10.8)
RBC 2.44 L 10^6/uL
(4.70-6.10)
Hgb 5.5 L* g/dL
(13.0-18.0)
Hct 19.0 L* %
(39.0-52.0)
MCV 77.9 L fL
(80.0-94.0)
MCH 22.5 L pg
(27.0-31.0)
MCHC 28.9 L g/dL
(33.0-37.0)
RDW 23.2 H %
(11.5-14.5)
Plt Count 552 H 10^3/uL
(130-400)
Abs Immat Gran (auto) 0.2 H 10^3/uL
(0-0.05)
Absolute Neuts (auto) 14.9 H 10^3/uL
(1.4-6.5)
Absolute Lymphs (auto) 0.4 L 10^3/uL
(1.2-3.4)
Absolute Monos (auto) 1.7 H 10^3/uL
(0.1-0.6)
Immature Gran % 1.2 H %
(0-0.5)
Neutrophils % 86.4 H %
(42.2-75.2)
Lymphocytes % 2.2 L %
(20.5-51.1)
Monocytes % 9.7 H %
(1.7-9.3)
VBG pH 7.29 L
(7.32-7.43)
VBG pO2 62 H mmHg
(30-50)
VBG HCO3 21.2 L mmol/L
(22-27)
Sodium 118 L* mmol/L
(135-145)
Chloride 89 L mmol/L
(98-107)
Carbon Dioxide 15 L mmol/L
(22-30)
Creatinine 0.6 L mg/dL
(0.7-1.3)
Glucose 143 H mg/dl
(70-99)
Alkaline Phosphatase 141 H U/L
(38-126)
Troponin I 0.059 H* ng/ml
Crossmatch IS Only See Detail
05/14/25 09:57
05/14/25 09:57
Vital Signs
Initial and Last Documented VS:
Initial Vital Signs
Pulse Resp Pulse Ox
112 36 81
05/14/25 09:35 05/14/25 09:35 05/14/25 09:35
Last Documented Vital Signs
Pulse Resp BP Pulse Ox
99 16 129/68 90
05/14/25 10:15 05/14/25 10:15 05/14/25 10:09 05/14/25 10:09
MDM/Problems Addressed
Differential Diagnosis Includes:
Acute on chronic COPD, CHF, pneumonia
MDM/Problems Addressed:
Patient presents with acute shortness of breath
Chronic conditions affecting care:
COPD
Acute Exacerbation and/or Progression of Chronic Illness:
Patient presents with acute exacerbation of chronic COPD
Acute Exacerbation and/or Progression of Chronic Illness: COPD
*Radiology
Radiology exam reviewed: preliminary read by ED provider (Increased lung markings bilaterally) and radiology read reviewed
*Pulse Oximetry
SaO2: 77
Oxygen Mode of Delivery: Room air
Patient hypoxic: yes
Comment: Hypoxic on room air at 77%
*EKG
Interpreted by ED Provider?: Yes
Interpretation: abnormal
Comparison EKG: changes noted
Rate: normal
Rhythm: sinus
[place]: normal axis
Interval: normal interval
QRS Pattern: normal QRS
Ischemia: non-specific ST changes
*[place] Observer Interpretation
Rate: tachycardiac
Interpretation: abnormal
Rhythm: sinus
*Critical Care Note
Total Time (30-74mins, 75-104mins- exclusive of procedures): 65 minutes
comment:
65 minutes critical care given to patient including recurrent assessments of his respiratory effort and mental status, as well as reviewing his past medical records, current lab work, discussing blood transfusion with him, reviewing his chest x-ray,
and discussing the case with hospitalist
Data Reviewed
Review of Other/Old Records Reveals: Progress Notes ([place] [facility] wrote an H&P in 2024 which explains that patient has history of gastric AVMs)
Source: patient
Patient Management
Social determinants of health affecting care: Living situation and Strong social support
Discussion with other providers: Hospitalist
Escalation/DeEscalation of care consider admission/obs:
Patient will be admitted for acute hypoxic respiratory failure likely related to COPD exacerbation, as well as likely blood loss anemia
ED Attending Note
-
Portions of this chart may have been created with voice recognition software.� Occasional wrong word or��sound alike� substitutions may have occurred due to the inherent limitations of voice recognition software.
Discharge Plan
Departure
Patient Disposition: Admit
Date of Disposition: 05/14/25
Time of Disposition: 10:21
Presentation/result/management discussed w/ accepting MD/DO: Hospitalist
Patient with high blood pressure during this ER visit?: Yes
Condition: Critical
Discharge Problem:
Acute hypoxic respiratory failure, Acute exacerbation of chronic obstructive pulmonary disease, Acute blood loss anemia, Acute hyponatremia
Interventions
Interventions:
*Risk Screen - Suicide Last Done: 05/14/25 09:38
*General Assessment Last Done: 05/14/25 09:38
*Neglect/Abuse Screening Last Done: 05/14/25 10:13
*ED- Fall Risk Assessment Last Done: 05/14/25 10:13
*ED COVID-19 Vaccine History Last Done: 05/14/25 10:13
ED- Cardiac Assessment Last Done: 05/14/25 10:07
ED- Pulmonary Assessment Last Done: 05/14/25 10:07
[2025-05-14] MEDS: VENTOLIN NEBULES 15 MG INH (10:04)
[2025-05-14] MEDS: DECADRON 10 MG IV (10:04)
[2025-05-14 10:29] LABS: Venous Blood Gas B.E. -4.9 mmol/L (-4 to +4); Venous Blood Gas O2 Sat % 93.4 %
[2025-05-14 10:33] LABS: Hematocrit 19.0 % (39.0-52.0); Hemoglobin 5.5 g/dL (13.0-18.0); Mean Corp Hgb Conc. 28.9 g/dL (33.0-37.0); Mean Corpuscular Volume 77.9 fL (80.0-94.0); Nucleated Red Blood Cells % 0.8 % (-); Platelet Count 552 10^3/uL (130-400); Red Cell Dist. Width 23.2 % (11.5-14.5)
[2025-05-14 10:51] LABS: ALT (SGPT) 45 U/L (0-50); AST (SGOT) 43 U/L (17-59); Albumin 4.5 g/dl (3.5-5.0); Alkaline Phosphatase 141 U/L (38-126); Blood Urea Nitrogen 11 mg/dl (9-20); Calcium 8.7 mg/dl (8.4-10.2); Carbon Dioxide 15 mmol/L (22-30); Chloride 89 mmol/L (98-107); Glucose 143 mg/dl (70-99); Potassium 4.4 mmol/L (3.5-5.1); Sodium 118 mmol/L (135-145); Total Protein 6.9 g/dl (6.3-8.2); Troponin I 0.059 ng/ml; eGFR > 60.00
--- NOTE | 2025-05-14 12:18 | CM ---
Addendum entered by Adela Ceballos 05/14/25 13:35:
Received consult for substance abuse, met with pt, states he has 1 or 2 beers daily, does not drink 'to get drunk'. Offered [facility], pt declined at this time, he is aware they are available if he changes his mind while in the hospital.
Original Note:
CM reviewed chart and met with pt bedside in ED. Lives alone, mother recently . 2 story home, [address], first floor BR/BA.
Independent in ADLs, personal care, driving and ambulation at baseline. Has Cpap at home.
No hx VN or SNF.
PCP: Mya Jama
Pharmacy: [facility]
CM will continue to follow for discharge planning.
[2025-05-14] MEDS: LEVAQUIN 150 IV (12:31)
--- NOTE | 2025-05-14 12:46 | CON.INTV ---
Consultation
Consultation Request
Date/Time Consultation Requested: 05/14/2025-1 PM
Date/Time Consultation Performed: 05/14/2025-1:30 PM
Requesting Provider: hospitalist
Performing Provider: Dr. Nicholas
Reason for Consultation: COPD/GI bleed/critical care management
Medical History
-
Chief Complaint: shortness of breath
History of Present Illness:
70-year-old smoking male with a history of hypertension, hyperlipidemia, alcohol use disorder, GI bleed/AVM on endoscopy and CHF presents with shortness of breath and noted to be hypoxemic requiring BiPAP, severely anemic, and
hyponatremic-skin carver consulted for hypoxemia/ pneumonia/CHF management 05/14/2025.. The patient was smoking up to a pack a day to her yesterday and developed increasing shortness of breath. He does not know if he is bleeding from anywhere. He
denies any current chest pain, pleurisy, chest congestion, productive cough, abdominal pain, nausea, focal weakness. Does have some increased lower extremity swelling and significant dyspnea on exertion. He was placed on BiPAP which helped and
now he is off BiPAP breathing better.
Past Medical History
Past Medical History: None (. Hypertension. Hyperlipidemia. GI bleed/AVM on endoscopy. CHF. Daily smoker. Alcohol use disorder.)
Social History
Tobacco: Smoker ( [id number]-[id number])
Alcohol: Daily
Drug: None
Personal:
Living: With Family
Occupational Exposures: No known asbestos exposure
Environmental Exposures: no known tuberculosis exposure
Family History
Family History: Hypertension
Allergies / Home Medications
Allergies
Allergy/AdvReac Type Severity Reaction Status Date / Time
No Known Allergies Allergy Verified 04/09/25 09:13
Home Medications
�Medication �Instructions �Recorded �Confirmed �Last Taken �Type
atorvastatin 40 mg tablet 40 mg PO DAILY High cholesterol 12/29/21 05/14/25 05/14/25 History
aspirin 81 mg tablet,delayed 81 mg PO DAILY 30 days #30 tabs 01/05/22 05/14/25 05/14/25 Rx
release
famotidine 20 mg tablet 20 mg PO DAILY Gastrointestinal 03/18/24 05/14/25 05/14/25 History
Issue
ferrous sulfate 325 mg (65 mg 65 mg PO Q48H@0800 Supplement 03/18/24 05/14/25 03/18/25 History
iron) tablet (iron)
fluticasone fur. 100 mcg-umeclid 1 inh inhalation R DAILY 03/18/24 05/14/25 05/14/25 History
62.5 mcg-vilant 25 mcg Lung/Breathing Issues
inhalat.powder (Trelegy Ellipta)
multivitamin 1 tab PO DAILY Supplement 03/18/24 05/14/25 05/14/25 History
B-complex with vitamin C 1 tab PO DAILY 02/13/25 05/14/25 05/14/25 History
acetaminophen 500 mg tablet 1,000 mg PO Q6HPRN PRN mild pain 02/13/25 05/14/25 05/14/25 History
albuterol sulfate 90 mcg/actuation 2 puff inhalation R Q6HPRN PRN SOB 02/13/25 05/14/25 05/14/25 History
aerosol inhaler
lisinopril 20 1 tab PO DAILY 02/13/25 05/14/25 05/14/25 History
mg-hydrochlorothiazide 12.5 mg
tablet
Review of Systems
-
Unable to Obtain full review of systems at this time due to: Other ( per HPI)
Vitals / Labs / Diagnostic Testing
Vital Signs
Pulse Resp BP Pulse Ox
99 16 129/68 90
05/14/25 10:15 05/14/25 10:15 05/14/25 10:09 05/14/25 10:09
Lab Data
05/14/25 09:57
Diagnostic Testing:
Physical Exam
-
Exam:
well-nourished and well-developed in no apparent distress
HEENT-atraumatic, normocephalic
Neck-supple, no JVD, no bruit
Heart-regular rate and rhythm-no murmurs, rubs or gallops
Chest-clear to auscultation, no wheezes, crackles
Back-no tenderness
Abdomen-soft, nontender, nondistended, no hepatosplenomegaly
Extremities-no cyanosis, clubbing, edema and good peripheral pulses
Integument-intact, no rashes, lesions or ecchymosis
Neurology-alert and oriented, nonfocal motor and sensory exam
Assessment
-
70-year-old smoking male with a history of hypertension, hyperlipidemia, alcohol use disorder, GI bleed/AVM on endoscopy and CHF presents with shortness of breath and noted to be hypoxemic requiring BiPAP, severely anemic, and
hyponatremic-skin carver/pulmonary consulted for hypoxemia/ pneumonia/CHF management 05/14/2025.
Respiratory failure-acute hypoxemic due to CHF and pneumonia
CHF-EF unknown
Mpewtirtw-sqkxalvbg-[id number]
COPD with acute exacerbation
GI bleed
Leukocytosis-WBC 17.2
Hvtixi-uqcynqyqfb-urahaoqvps 5.5
Reactive thrombocytosis-platelet 552
Metabolic acidosis
Hyperglycemia
Hyponatremia
Conditions present prior to admission:
Hypertension.
Hyperlipidemia.
GI bleed/AVM on endoscopy.
CHF.
COPD-centrilobular
Daily smoker.
Alcohol use disorder.
NELLY-severe
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
Spiculated left lung mass-nonnecrotizing granuloma-PET scan SUV 3.5-bronchoscopy 03/03/25
Overweight
Fatty liver
Aortic stenosis
Hiatal hernia
Plan
Patient with acute respiratory decompensation multifactorial including underlying COPD, CHF, probable pneumonia and severe anemia from probable GI bleed
Supplemental oxygen as needed
High flow oxygen if needed
BiPAP ordered noninvasive ventilation
Intubated mechanically ventilated if needed
Follow-up chest x-ray
Nebulizers-budesonide and DuoNebs-on Trelegy at home-PFTs summarized below
Has obstructive sleep apnea and is maintained on CPAP-followed by Dr. Denise Smith-sleep study results summarized below
Check cultures
Empiric antibiotics-ceftriaxone and azithromycin initiated
Follow leukocytosis
Diuresis as tolerated
Diuresis note
Check echocardiogram
Follow-up x-ray
Consider cardiology evaluation
Trend troponin
Follow hemoglobin
Transfuse as needed
PPI
GI evaluation
Monitor blood sugar
Insulin supplementation
DVT prophylaxis-mechanical
GI prophylaxis
Nutrition per gastroenterology
Early mobilization
Patient had right upper lobe lung nodule biopsied by Dr. Garcia on 02/16/2025-nonnecrotizing granulomatous inflammation-sarcoidosis suspected, AFB and fungal stains negative, brushings and bronchoalveolar lavage as well as station 4R biopsy were
unrevealing for malignancy
Patient also had needle biopsy of posterior mediastinal mass 04/10/2025-atypical cartilaginous neoplasm favor chondrosarcoma
Patient follows with Dr. Denise Smith-last seen 01/30/2025-subsequently underwent robotic bronchoscopy and has not followed up in the office post bronchoscopy
Critical care statement: A total of 75 minutes of critical care time was provided for this patient today. This includes management of unstable vital signs, evaluation of the patient at bedside, reviewing the patient's pertinent medical records
including radiographs, microbiology, laboratory evaluations, and discussion with primary team, consultants, pharmacy, nutrition, physical therapy, case management, charge nurse, critical care nursing, and respiratory therapy.
Diagnostic data:
Chest x-ray 05/14/2025-CHF with underlying COPD and diffuse pneumonia is difficult to exclude
Chest CT 01/02/22: no PE; moderate emphysema noted, small mediastinal LNs/hilar LNs.
LDCT 02/14/23: No evidence of pulmonary malignancy. Moderate centrilobular emphysema, most prominent in both upper lobes. Atherosclerosis.
LDCT 02/18/24: No discrete focal parenchymal nodule or consolidation. Coronary artery calcifications. Emphysematous changes again seen. Predominantly homogeneous cystic lesion in the posteromedial right chest adjacent to the right side of the thoracic
aorta and thoracic spine, enlarged in size measuring approximately 7 cm in greatest dimension containing some small volume irregular calcification. Some slight progression of some small internal calcification in the adjacent T7 vertebral body. Some
of several differential diagnostic possibilities include duplication cyst, neurenteric cyst, neurogenic cystic tumor, hydatid cyst, cystic sarcoma and cystic teratoma.
CT Chest 12/16/24: redemonstration of a large right-sided paraspinal soft tissue mass at the midthoracic level measuring approximately 8.9 x�7.3 x 9.0�centimeters with internal calcifications increased from prior, sclerosis and mild erosive changes of
the adjacent T7 vertebral body, sclerosis of T6.� Moderate centrilobular emphysema.� 1.7 cm spiculated left upper lobe pulmonary nodule, new from prior.� 2.5 cm right hilar lymphadenopathy, progressed.
CT chest ION 02/11/2025-large mass arising from posterior mediastinum with slight enlargement compared to consistent with the patient's known spindle cell neoplasm, spiculated left upper lobe nodule similar in size to December 2024 and a new
1.1 cm posterior left upper lobe nodule worrisome for malignancy, pulmonary emphysema
PET/CT 01/12/25: 1.5 x 0.8 cm right paratracheal lymph node, 1.8 x 1.0 cm right hilar lymph node, left paratracheal lymph node measuring 0.9 x 0.7 cm.� right upper lobe consolidation, 1.8 x 0.8 cm lesion within the left upper lobe, 1.7 cm nodule
within the medial left lower lobe
PFT 04/17/22: FVC 4.37/106%, FEV1 2.52/82%, ratio 58%. No significant BD response. TLC 7.57/115%, RV 2.41/98%, DLCO 11.88/46%, DLCO/VA 1.62/41%. mild obstruction, hyperinflation, moderate reduction in DLCO
PFT 01/14/24: FVC 5/123%, FEV1 2.58/86%, ratio 52%, no significant BD response, TLC 7.87/119%, DLCO 9.92/39%, DLCO/VA 1.45/38%.� Mild obstruction. Severely reduced diffusing opacity.
Spirometry 01/30/25: FEV1 1.96L 65%, FVC 3.55L 87%, ratio 0.55, post FEV1 2.0L 66%, no BD response (moderate obstuction, declined from prior)
HST 02/07/23: SONIA 41.3 events/hour, O2 stephan 72%, 96.3% of the study time spent with O2 below 90%, 9 central apneas.
Echocardiogram 02/03/2025-EF 60-65%, mild mitral regurgitation, moderate aortic regurgitation, PA systolic 35-40
Data Reviewed
-
PFT: Report reviewed by me
EKG: Report reviewed by me
Radiology: Image personally visualized and interpreted and Report reviewed by me
CT Scan: Image personally visualized and interpreted and Report reviewed by me
Medical Tests (Nuc Med, Echo etc): Report reviewed by me
Labs: Labs reviewed by me
Old Records: Reviewed
Critical Care Time (in minutes): 75
[2025-05-14 12:56] LABS: COVID-19 Antigen Negative (Negative)
[2025-05-14] MEDS: DUONEB 3 ML INH ×3 (13:49→19:40)
[2025-05-14] MEDS: PULMICORT INH (13:51)
--- NOTE | 2025-05-14 14:26 | CON.GI ---
Consultation
-
Date/Time Consultation Requested: 05/14/25 11am
Date/Time Consultation Performed: 05/14/25 2pm
Requesting Provider: Alejandro
Performing Provider: Matt
Reason for Consultation: anemia
Medical History
Chief Complaint / HPI
Chief Complaint: SOB
History of Present Illness:
This pt is a 70 y/o with a hx of a large posterior mediastinal mass, CHF, COPD, alcohol use, AVMs of the GI tract admitted with acute respiratory distress. He was having difficulty breathing and says it is likely secondary to his CHF and COPD, he
did have the mass biopsied last month. He does drink alcohol but hadn't been prior to admission. He has not had any melena or hematemesis. he has had this in the past and has had a GI evaluation in the past which has found upper GI AVMs, none
were actively bleeding but were treated. He currently is on Bipap and is having difficulty speaking
Past Medical History
Past Medical History: CHF, COPD, HTN and Other (mediastinal mass, AVMs of the GI tract)
Social History
Tobacco: Smoker
Alcohol: Daily
Family History
Family History: Reviewed & Not Pertinent
Allergies / Home Medications
Allergy/AdvReac Type Severity Reaction Status Date / Time
No Known Allergies Allergy Verified 04/09/25 09:13
�Medication �Instructions �Recorded
atorvastatin 40 mg tablet 40 mg PO DAILY High cholesterol 12/29/21
aspirin 81 mg tablet,delayed 81 mg PO DAILY 30 days #30 tabs 01/05/22
release
famotidine 20 mg tablet 20 mg PO DAILY Gastrointestinal 03/18/24
Issue
ferrous sulfate 325 mg (65 mg 65 mg PO Q48H@0800 Supplement 03/18/24
iron) tablet (iron)
fluticasone fur. 100 mcg-umeclid 1 inh inhalation R DAILY 03/18/24
62.5 mcg-vilant 25 mcg Lung/Breathing Issues
inhalat.powder (Trelegy Ellipta)
multivitamin 1 tab PO DAILY Supplement 03/18/24
B-complex with vitamin C 1 tab PO DAILY 02/13/25
acetaminophen 500 mg tablet 1,000 mg PO Q6HPRN PRN mild pain 02/13/25
albuterol sulfate 90 mcg/actuation 2 puff inhalation R Q6HPRN PRN SOB 02/13/25
aerosol inhaler
lisinopril 20 1 tab PO DAILY 02/13/25
mg-hydrochlorothiazide 12.5 mg
tablet
Review of Systems
-
All other systems: A 12 pt ROS was Negative except as stated above in HPI
Respiratory: Reports Trouble Breathing
Vital Signs
Pulse Resp BP Pulse Ox
99 16 129/68 94
05/14/25 10:15 05/14/25 10:15 05/14/25 10:09 05/14/25 13:51
Physical Exam
Exam
General: Other (uncomfortable, tachypneic)
HEENT: Anicteric
Cardiac: S1/S2
GI: Soft and Non Tender
Skin: Warm
Neuro: Awake
Psych: Other (oriented)
Results
WBC 17.2 10^3/uL (4.8-10.8) H 05/14/25 09:57
Hgb 5.5 g/dL (13.0-18.0) L* 05/14/25 09:57
Hct 19.0 % (39.0-52.0) L* 05/14/25 09:57
MCV 77.9 fL (80.0-94.0) L 05/14/25 09:57
Plt Count 552 10^3/uL (130-400) H 05/14/25 09:57
Absolute Neuts (auto) 14.9 10^3/uL (1.4-6.5) H 05/14/25 09:57
PT Cancelled 05/14/25 12:24
INR Cancelled 05/14/25 12:24
APTT Cancelled 05/14/25 12:24
Sodium 118 mmol/L (135-145) L* 05/14/25 09:57
Potassium 4.4 mmol/L (3.5-5.1) 05/14/25 09:57
Chloride 89 mmol/L (98-107) L 05/14/25 09:57
Carbon Dioxide 15 mmol/L (22-30) L 05/14/25 09:57
BUN 11 mg/dl (9-20) 05/14/25 09:57
Creatinine 0.6 mg/dL (0.7-1.3) L 05/14/25 09:57
Calcium 8.7 mg/dl (8.4-10.2) 05/14/25 09:57
Total Bilirubin 0.5 mg/dl (0.2-1.3) 05/14/25 09:57
AST 43 U/L (17-59) 05/14/25 09:57
ALT 45 U/L (0-50) 05/14/25 09:57
Alkaline Phosphatase 141 U/L (38-126) H 05/14/25 09:57
Assessment / Plan
-
This patient is a 70 y/o man with COPD, HTN, CHF and GI AVMs. he was admitted for acute SOB and his hgb was 5.5. He does also have a mediastinal mass. He does not have evidence of active GI bleeding.
His BUN/CR is low. I do think his SOB is not secondary to GI issues but rather his cardiopulm issues. His xray shows chf vs infiltrate. For now:
1. would recheck hgb and if still low needs transfusion
2. monitor for active GI bleeding but pulmonary status too unstable for scope unless emergency and then would need intubation
3. if needs eventual scope would only start with upper as he has had avms in past EGDs (once once with some bleeding)
4. colonoscopy in 2020 with diminutive polyp and diverticulosis not likely source of anemia
5. PPI
6. lfts nornal, oriented, no evidence of alcohol hepatitis, just needs abstinence
-
-
Thank you for consultation and allowing me to participate in the patient's care. Please call the director of strategic communications GI physician during the after hours with any questions or concerns.
[2025-05-14 14:57] LABS: Iron < 20 ug/dl (49-181)
[2025-05-14 15:02] LABS: Total Iron Binding Capacity 459 ug/dl (261-462)
[2025-05-14] MEDS: DUONEB INH (15:23)
[2025-05-14 15:28] LABS: INR 1.08; PT 14.5 Sec (11.4-14.6)
[2025-05-14 15:29] LABS: APTT 28.6 Sec (23.4-35.0)
--- NOTE | 2025-05-14 15:29 | HPS.HSE ---
Family Physician
-
Family Physician: INTERVIEWE UNKNOWN - PT NOT
Chief Complaint
-
shortness of breath
History of Present Illness
70-year-old male with past medical history of hypertension, hyperlipidemia, alcohol use disorder, GI bleed/AVM on endoscopy and CHF presents with shortness of breath. Patient had progressive shortness of breath for the last several days, still
actively smoking cigarettes and drinking alcohol. Patient was noted to be hypoxic, placed on BiPAP with slow improvement and slowly weaned to 5 L upon admission. Reports increased cough, denies fever, chills, vomiting. Acknowledges black stools
that he noticed over the last 2 weeks. Actively drinks 4 drinks a day, sometimes switches from vodka to beer, does acknowledge taking hypertensive medication which includes hydrochlorothiazide. Noted to be hypoxic to 77% on room air, was placed on
BiPAP with good improvement in back on 5 L saturating 95%. Audible expiratory wheezes on auscultation. Pulse 88, respiratory rate 13, afebrile, normotensive. White count noted to be 17.2, platelets 552, hemoglobin 5.5. INR 1.08, sodium 118,
bicarb 15 iron deficient with iron less than 20, TSH 1.51. CT chest with new areas of concern in the right upper and left upper lobes concerning for malignancy.
Medical History
Past Medical History
Past Medical History: Reports Other
Additional Past Medical History:
Hypertension
COPD
NELLY on CPAP
AVM / GI bleeding
Aortic Stenosis
Alcohol Use Disorder
Iron Deficiency Anemia
Past Surgical History: Reports Other
Additional Past Surgical History:
Right Knee Arthroscopy
Social History
Tobacco: Smoker (Current every day smoker. > 50 pack years total)
Alcohol: Daily (Daily EtOH use of 5-6 beers every day. Last drink was today.)
Drug: None
Family History
Family History: Other (Brother: [place] Brother: CVA Mother: Longe[employer])
Allergies / Home Medications
Allergies reflects when Allergies were last updated in [facility].
Home Medications with original date entered in [facility]
Allergy/Medication List:
Allergies
Allergy/AdvReac Type Severity Reaction Status Date / Time
No Known Allergies Allergy Verified 03/17/24 21:00
Home Medications
atorvastatin 40 mg tablet 40 mg PO QPM High cholesterol 12/29/21
lisinopril 10 mg-hydrochlorothiazide 12.5 mg tablet 1 tab PO DAILY Blood pressure 12/29/21
aspirin 81 mg tablet,delayed release 81 mg PO DAILY 30 days #30 tabs 01/05/22
ferrous sulfate 325 mg (65 mg iron) tablet (FeroSul) 325 mg PO DAILY 30 days #30 tabs 01/05/22
albuterol sulfate 90 mcg/actuation aerosol inhaler 1 puff inhalation R Q4HPRN PRN SOB/WHEEZING 03/18/24
umeclidinium 62.5 mcg-vilanterol 25 mcg/actuation powdr for inhalation (Anoro Ellipta) 1 inh inhalation DAILY 03/18/24
Review of Systems
-
History Source: Patient
A 12 point ROS was completed and negative except as noted: Yes
Physical Exam
Vital Signs
Vital Signs
Temp Pulse Resp BP Pulse Ox
98.2 F 88 18 118/74 95
05/14/25 15:23 05/14/25 15:23 05/14/25 15:23 05/14/25 15:23 05/14/25 14:30
Physical Exam
General: Other (69y M in no acute distress. Becomes acutely dyspneic with sitting up / moving about in the bed.)
HEENT: Other (Thick neck, MMM.)
Respiratory: Other (Bibasilar rales about 1/4 up. Few scattered expiratory wheezes.)
Cardiac: S1/S2, Regular Rhythm and Murmur (II/ PRINCE)
GI: Other (Softly distended. Not tender. Pos BS.)
Musculoskeletal: No Clubbing, No Cyanosis and No Edema
Neuro: AO x 3 and Nonfocal/grossly intact
Laboratory Results
-
05/14/25 09:57
Laboratory Results
PT Cancelled 05/14/25 12:24
INR Cancelled 05/14/25 12:24
APTT Cancelled 05/14/25 12:24
Total Bilirubin 0.5 mg/dl (0.2-1.3) 05/14/25 09:57
AST 43 U/L (17-59) 05/14/25 09:57
ALT 45 U/L (0-50) 05/14/25 09:57
Alkaline Phosphatase 141 U/L (38-126) H 05/14/25 09:57
Troponin I 0.059 ng/ml H* 05/14/25 09:57
Data Reviewed
-
Diagnostic Radiology: Report Reviewed by me
CT Scan: Report Reviewed by me
Lab Data: Labs Reviewed by me
Impression/Plan
-
IMPRESSION:
70-year-old male with past medical history of hypertension, hyperlipidemia, alcohol use disorder, GI bleed/AVM on endoscopy and CHF presents with shortness of breath.
PLAN:
#Acute Hypoxic Respiratory Failure
- 2/2 to COPD Exacerbation and CHF Exacerbation, unknown type
� Weaned off BiPAP, now on 5 L
� Continue empiric antibiotics although imaging does not clearly reveal infiltrate and therefore if cultures remain negative, can consider discontinuing
� Hold off on aggressive diuresis right now due to possible GI bleed, normotension
� May initiate diuresis within 24 to 48 hours if hemoglobin remain stable, and remains hemodynamically stable
� Wean O2 as tolerated
� DuoNebs standing and as needed
� Pulmicort
� Hold off on steroids due to possible GI bleed in setting of EtOH abuser
#Acute CHF exacerbation, unknown type
� Follow-up echocardiogram
� Diuresis as stated above until hemodynamics remain stable, including hemoglobin and blood pressure
� BNP elevated
#Elevated white count
Possibly secondary to sepsis with questionable infiltrate versus reactive
Monitor fever curve, white count with antibiotics
#Iron deficiency anemia
#Acute blood loss anemia
� I suspect in setting of darker black stools, upper GI bleed
� Transfused 2 units
� PPI IV twice daily
� Maintain 2 peripheral IVs
� Maintain hemoglobin goal greater than 7, transfuse as needed
� Monitor hemoglobin
� GI consulted
� Can consider endoscopy if pressor status improves, defer to GI
#Hyponatremia
� Most likely secondary to combination of volume overload in setting of CHF along with chronic alcohol use and hydrochlorothiazide
� Stop hydrochlorothiazide
� Monitor BMP closely
� Urine sodium, urine osmolality
� Hold diuretics due to stated above, may consider initiation tomorrow
� Nephrology consulted
#Right upper and left upper lobe soft tissue mass calcifications
� Concerning for malignancy
� Pulmonary consulted
Tobacco use
� Cessation advised
#Alcohol use
� Continue alcohol withdrawal protocol
� Last drink yesterday 05/13
#DVT prophylaxis
� SCDs
[2025-05-14] MEDS: STERILE WATER FOR INJECTION 10 ML IV (15:35)
[2025-05-14] MEDS: ROCEPHIN 1000 MG IV (15:35)
[2025-05-14] MEDS: FOLVITE 1 MG PO (15:35)
[2025-05-14 15:36] LABS: Ferritin 11.3 ng/ml (17.9-464.0)
[2025-05-14 15:40] LABS: Hemoglobin 4.9 g/dL (13.0-18.0)
[2025-05-14 15:44] LABS: GGTP 41 U/L (15-73); Magnesium 1.9 mg/dl (1.6-2.3)
[2025-05-14 16:07] LABS: Folate > 20.0 ng/ml (2.76-20); Vitamin B12 910 pg/ml (239-931)
[2025-05-14 16:08] LABS: Troponin I 0.068 ng/ml
[2025-05-14 16:10] LABS: Urine Character Clear (Clear)
[2025-05-14] MEDS: PROTONIX IV 80 MG IV (16:27)
[2025-05-14] MEDS: ZITHROMAX INFUSION 250 IV (16:30)
[2025-05-14] MEDS: LASIX 20 MG IV (16:58)
--- NOTE | 2025-05-14 17:38 | W.CON.NEPH ---
Consultation
-
Date/Time Consultation Requested: May 14, 2025 at 1 PM
Date/Time Consultation Performed: May 14, 2025 at 5:30 PM
Requesting Provider: Dr. Pool
Performing Provider: Dr. Barr
Reason for Consultation: Hyponatremia
Medical History
-
Chief Complaint: Hyponatremia
History of Present Illness:
70-year-old male with past medical history of hypertension, hyperlipidemia, alcohol use disorder, GI bleed/AVM on endoscopy and CHF presents with shortness of breath. Patient had progressive shortness of breath for the last several days, still
actively smoking cigarettes and drinking alcohol. Patient was noted to be hypoxic, placed on BiPAP with slow improvement he drinks about 5 drinks of alcohol per day both vodka and beer.
Patient was found to have a hemoglobin of 5.5 and a sodium of 118.
Renal consultation for hyponatremia. Patient on hydrochlorothiazide outpatient
Past Medical History
Past medical history of hypertension, hyperlipidemia, alcohol use disorder, GI bleed/AVM on endoscopy and CHF
Social History
Tobacco: Smoker
Alcohol: Daily
Family History
Family History: Not Pertinent
Allergies / Home Medications
Allergy/AdvReac Type Severity Reaction Status Date / Time
No Known Allergies Allergy Verified 04/09/25 09:13
�Medication �Instructions �Recorded �Confirmed �Type
atorvastatin 40 mg tablet 40 mg PO DAILY High cholesterol 12/29/21 05/14/25 History
aspirin 81 mg tablet,delayed 81 mg PO DAILY 30 days #30 tabs 01/05/22 05/14/25 Rx
release
famotidine 20 mg tablet 20 mg PO DAILY Gastrointestinal 03/18/24 05/14/25 History
Issue
ferrous sulfate 325 mg (65 mg 65 mg PO Q48H@0800 Supplement 03/18/24 05/14/25 History
iron) tablet (iron)
fluticasone fur. 100 mcg-umeclid 1 inh inhalation R DAILY 03/18/24 05/14/25 History
62.5 mcg-vilant 25 mcg Lung/Breathing Issues
inhalat.powder (Trelegy Ellipta)
multivitamin 1 tab PO DAILY Supplement 03/18/24 05/14/25 History
B-complex with vitamin C 1 tab PO DAILY 02/13/25 05/14/25 History
acetaminophen 500 mg tablet 1,000 mg PO Q6HPRN PRN mild pain 02/13/25 05/14/25 History
albuterol sulfate 90 mcg/actuation 2 puff inhalation R Q6HPRN PRN SOB 02/13/25 05/14/25 History
aerosol inhaler
lisinopril 20 1 tab PO DAILY 02/13/25 05/14/25 History
mg-hydrochlorothiazide 12.5 mg
tablet
Review of Systems
-
Shortness of breath
All other systems: Negative unless noted
Physical Exam
Vital Signs
Vital Signs
Temp Pulse Resp BP Pulse Ox
98.3 F 96 20 136/72 94
05/14/25 15:39 05/14/25 16:58 05/14/25 16:34 05/14/25 16:58 05/14/25 16:34
Lab Results
WBC 17.2 10^3/uL (4.8-10.8) H 05/14/25 09:57
RBC 2.44 10^6/uL (4.70-6.10) L 05/14/25 09:57
Hct 19.0 % (39.0-52.0) L* 05/14/25 09:57
Plt Count 552 10^3/uL (130-400) H 05/14/25 09:57
Sodium 118 mmol/L (135-145) L* 05/14/25 09:57
Potassium 4.4 mmol/L (3.5-5.1) 05/14/25 09:57
Chloride 89 mmol/L (98-107) L 05/14/25 09:57
Carbon Dioxide 15 mmol/L (22-30) L 05/14/25 09:57
BUN 11 mg/dl (9-20) 05/14/25 09:57
Creatinine 0.6 mg/dL (0.7-1.3) L 05/14/25 09:57
eGFR > 60.00 05/14/25 09:57
Glucose 143 mg/dl (70-99) H 05/14/25 09:57
Calcium 8.7 mg/dl (8.4-10.2) 05/14/25 09:57
Phosphorus 4.4 mg/dl (2.5-4.5) 05/14/25 14:50
Oor-J-Dythynsiocv Pept 6360 pg/ml 05/14/25 09:57
Albumin 4.5 g/dl (3.5-5.0) 05/14/25 09:57
Physical Exam
General no acute distress
HEENT no cephalic atraumatic extraocular muscle intact no scleral icterus no JVD neck supple
lungs coarse breath sounds
heart regular S1-S2 positive
abdomen soft nontender positive bowel sounds, obese
extremities no edema pulses present bilateral
Neurologically nonfocal alert and oriented x 3
Skin no lesions no abrasions no petechiae
Psych normal affect no bizarre behavior
Data Reviewed
-
Radiology: Image Personally Visualized and interpreted
CT Scan: Image Personally Visualized and interpreted
Assessment/Plan
-
70-year-old male with past medical history of hypertension, hyperlipidemia, alcohol use disorder, GI bleed/AVM on endoscopy and CHF presents with shortness of breath. Patient had progressive shortness of breath for the last several days, still
actively smoking cigarettes and drinking alcohol. Patient was noted to be hypoxic, placed on BiPAP with slow improvement he drinks about 5 drinks of alcohol per day both vodka and beer.
Patient was found to have a hemoglobin of 5.5 and a sodium of 118.
Renal consultation for hyponatremia. Patient on hydrochlorothiazide outpatient
Impression.
Hyponatremia.
CHF.
Hypertension.
Symptomatic anemia.
Lung nodules
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
Spiculated left lung mass-nonnecrotizing granuloma-PET scan SUV 3.5-bronchoscopy 03/03/25
COPD
Plan.
Blood transfusion
Fluid restriction
Alcohol withdrawal prophylaxis
Thiamine
BMP every 6
Urine indices-urine sodium 17 with urine osmolality 233
No indication for hypertonic saline
[2025-05-14] MEDS: PULMICORT 0.5 MG INH (19:40)
[2025-05-14] MEDS: THIAMINE INJECTION 200 MG IV (20:58)
[2025-05-14] MEDS: NSS (PRESERVATIVE FREE) 10 ML IV (20:58)
[2025-05-14] MEDS: PROTONIX IV 40 MG IV (20:58)
[2025-05-14] MEDS: SOLU-MEDROL PF 40 MG IV (20:58)
[2025-05-15] VITALS (24 sets, daily range): BP systolic 103–163; BP diastolic 60–102; PULSE 2–98; O2SAT 99; BMI 27.6
[2025-05-15 00:14] LABS: Hemoglobin 6.6 g/dL (13.0-18.0)
--- NOTE | 2025-05-15 00:28 | W.PN.UPDATE ---
Update Note
Progress Note Update
hgb 6.6 after 2 units of PRBC's. asymptomatic, states he 'feels the same'. no active bleeding. stable VS. consent signed in chart, will order 1 unit of PRBC's
[2025-05-15 00:31] LABS: Blood Urea Nitrogen 12 mg/dl (9-20); Calcium 8.7 mg/dl (8.4-10.2); Carbon Dioxide 21 mmol/L (22-30); Chloride 95 mmol/L (98-107); Estimated Creatinine Clearance 111 ml/min; Glucose 127 mg/dl (70-99); Potassium 4.9 mmol/L (3.5-5.1); Sodium 123 mmol/L (135-145); eGFR > 60.00
[2025-05-15 00:41] LABS: Troponin I 0.071 ng/ml
--- NOTE | 2025-05-15 01:11 | PTCARENOTE ---
Pt tolerated 2nd unit of PRBCs well. Labs drawn 2 hrs after. Hgb resulted at 6.6. Notified SOFTWARE LICENSING ANALYST. 1 unit PRBCs ordered and currently transfusing. Pt states he 'feels the same' as when he came in; no better, no worse. No crackles present in
lungs; insp/exp wheeze with diminished lung sounds throughout. Tolerating the bipap mask at this time. C/o thirst excessively. Repeat Na+ is 123; was 118 on arrival. Resting in bed with call sewell in reach.
[2025-05-15 05:48] LABS: Hematocrit 23.5 % (39.0-52.0); Hemoglobin 7.4 g/dL (13.0-18.0); Mean Corp Hgb Conc. 31.5 g/dL (33.0-37.0); Mean Corpuscular Volume 78.3 fL (80.0-94.0); Platelet Count 378 10^3/uL (130-400); Red Cell Dist. Width 19.0 % (11.5-14.5)
[2025-05-15 06:04] LABS: ALT (SGPT) 42 U/L (0-50); AST (SGOT) 39 U/L (17-59); Albumin 4.1 g/dl (3.5-5.0); Alkaline Phosphatase 117 U/L (38-126); Blood Urea Nitrogen 12 mg/dl (9-20); Calcium 8.8 mg/dl (8.4-10.2); Carbon Dioxide 21 mmol/L (22-30); Chloride 99 mmol/L (98-107); Estimated Creatinine Clearance 111 ml/min; Glucose 119 mg/dl (70-99); Potassium 5.0 mmol/L (3.5-5.1); Sodium 127 mmol/L (135-145); Total Protein 6.3 g/dl (6.3-8.2); eGFR > 60.00
[2025-05-15 06:15] LABS: Troponin I 0.067 ng/ml
[2025-05-15] MEDS: DUONEB 3 ML INH ×4 (07:45→20:00)
[2025-05-15] MEDS: PULMICORT 0.5 MG INH ×2 (07:45→19:59)
--- NOTE | 2025-05-15 08:35 | W.PN.GI.CBS2 ---
Addendum entered and electronically signed by CAMILLE Gonzalez 05/15/25 10:03:
reviewed with nursing stool was small black heme +
Addendum entered and electronically signed by Michaela Morris DO 05/15/25 09:37:
The patient was seen and examined by me independently in collaboration with the nurse practitioner.
Past medical history/social history/medications/allergies/family history reviewed.
Lab data and imaging data reviewed.
Patient seen in follow-up, reports breathing is more comfortable, currently on nonrebreather. He would like to be discharged home today given it is 15 of May. He does not feel he is bleeding. His hemoglobin dropped to 4.9, transfused with 3 units
of PRBC, repeat hemoglobin 7.4. Patient ate breakfast this morning.
A/P:
70 y/o man with COPD, HTN, CHF and GI AVMs admitted with hypoxemic respiratory failure found to be anemic, hemoglobin down to 4.9. He received a total of 3 units of PRBC with appropriate response. Tenuous respiratory status, mediastinal mass and new
areas of concern on CT Chest-- right upper and left upper lobes and b/l moderate sized pleural effusions.
His BUN/CR is low. Suspect his SOB is 2/2 cardiopulmonary issues rather than symptomatic anemia. He has AVMs that are likely oozing slowly, he does not appear to be actively bleeding. Explained to patient that if we proceeded with EGD, he would
require intubation and I am not sure he would be able to be extubated following the procedure. He expressed understanding and did not want to proceed unless it was an emergency.
Plan:
-PPI IV BID
-Repeat Hgb in late afternoon to ensure it is stable, defer EGD unless active/unstable GI bleeding due to unstable respiratory status
-if needs eventual scope would only start with upper as he has had avms in past EGDs (once once with some bleeding)
-colonoscopy in 2020 with diminutive polyp and diverticulosis not likely source of anemia
-lfts slightly abnormal (alk phos normalized, mild elevation in tbili to 1.4); no evidence of alcohol hepatitis, just needs abstinence
Original Note:
Today's Communication / Plan
-
s/p transfusion and hbg up to 7.4 and some improved resp status but still with shortness of breath with walking to bathroom
no stool overnight but just had darker stool this am
cont diet
trend hbg recheck this afternoon
will review with dr. Morris for EGD with continued tenuous resp status
ETOH abstinence - monitor for withdrawal
cont PPI BID
Assessment / Plan
-
This patient is a 70 y/o man with COPD, HTN, CHF and GI AVMs. he was admitted for acute SOB and his hgb was 5.5. He does also have a mediastinal mass. He does not have evidence of active GI bleeding.
His BUN/CR is low. I do think his SOB is not secondary to GI issues but rather his cardiopulm issues. His xray shows chf vs infiltrate. colonoscopy in 2020 with diminutive polyp and diverticulosis not likely source of anemia
-anemia with hbg down to 4.9 after admission with hx HAILY
-hx AVM's/HH on prior EGD
-hypoxemia on admission
-lung mass
-COPD
-ETOH abuse
PLAN:
s/p transfusion and hbg up to 7.4 and some improved resp status but still with shortness of breath with walking to bathroom
no stool overnight but just had darker stool this am
cont diet
trend hbg recheck this afternoon
will review with dr. Morris for EGD with continued tenuous resp status
ETOH abstinence - monitor for withdrawal
cont PPI BID
Subjective
Subjective
Date of Service: May 15, 2025
7 cholesterol lowering diet, feeling better no stools but darker stool this am, no vomiting overnight
Objective
Data Reviewed
Laboratory Data:
Laboratory Results
05/15/25 05:07
05/15/25 05:07
Laboratory Results
PT 14.5 Sec (11.4-14.6) 05/14/25 14:50
INR 1.08 05/14/25 14:50
APTT 28.6 Sec (23.4-35.0) 05/14/25 14:50
Phosphorus 4.4 mg/dl (2.5-4.5) 05/14/25 14:50
Magnesium 1.9 mg/dl (1.6-2.3) 05/14/25 14:50
Total Bilirubin 1.4 mg/dl (0.2-1.3) H 05/15/25 05:07
AST 39 U/L (17-59) 05/15/25 05:07
ALT 42 U/L (0-50) 05/15/25 05:07
Alkaline Phosphatase 117 U/L (38-126) 05/15/25 05:07
Vital Signs and I&O:
Vital Signs
Temp Pulse Resp BP Pulse Ox
97.9 F 107 23 121/66 100
05/15/25 07:28 05/15/25 07:47 05/15/25 07:47 05/15/25 04:00 05/15/25 07:47
I&O
05/14/25 05/15/25 05/16/25
06:59 06:59 06:59
Intake Total 750 / 750 180 / 180
Output Total 4075 / 4075 400 / 400
Balance -3325 / -3325 -220 / -220
Physical Exam
Physical Exam
HEENT: Anicteric and Moist mucous membranes
Cardiology: Normal Sinus Rhythm
Pulmonary: Wheezes
GI: Soft, Non Distended and Non Tender
Extremities: No Edema
Neuro: Non Focal
[2025-05-15] MEDS: PROTONIX IV 40 MG IV ×2 (09:08→20:04)
[2025-05-15] MEDS: LIPITOR 40 MG PO (09:09)
[2025-05-15] MEDS: NICODERM TRANSDERMAL 14 MG TRANSDERM (09:09)
[2025-05-15] MEDS: SOLU-MEDROL PF 40 MG IV (09:09)
[2025-05-15] MEDS: NSS (PRESERVATIVE FREE) 10 ML IV ×2 (09:09→20:03)
[2025-05-15] MEDS: THIAMINE INJECTION 200 MG IV ×2 (09:09→20:03)
[2025-05-15] MEDS: FOLVITE 1 MG PO (09:09)
--- NOTE | 2025-05-15 11:08 | W.PN.PUL.V3 ---
Today's Communication / Plan
-
Follow hemoglobin
Transfuse as needed
Gentle diuresis
No change in steroids and nebulizers-monitor wheezing
Antibiotics
Monitor for alcohol withdrawal-patient anxious to be discharged-explained patient has multiple life-threatening abnormalities and discharging home today is not medically advised
Assessment
-
70-year-old smoking male with a history of hypertension, hyperlipidemia, alcohol use disorder, GI bleed/AVM on endoscopy and CHF presents with shortness of breath and noted to be hypoxemic requiring BiPAP, severely anemic, and
hyponatremic-propagation worker/pulmonary consulted for hypoxemia/ pneumonia/CHF management 05/14/2025.
Respiratory failure-acute hypoxemic due to CHF and pneumonia
CHF-EF unknown
Ttqzydrqw-nzqlquwge-tvmabugc
COPD with acute exacerbation
GI bleed
Leukocytosis-WBC 17.2
Mxibcy-vglbfjvtcx-nlemfklupj 5.5
Reactive thrombocytosis-platelet 552
Metabolic acidosis
Hyperglycemia
Hyponatremia
Conditions present prior to admission:
Hypertension.
Hyperlipidemia.
GI bleed/AVM on endoscopy.
CHF.
COPD-centrilobular
Daily smoker.
Alcohol use disorder.
NELLY-severe
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
Spiculated left lung mass-nonnecrotizing granuloma-PET scan SUV 3.5-bronchoscopy 03/03/25
PATTIE on BAL 02/16/25-unknown significance-suspect contaminant
Overweight
Fatty liver
Aortic stenosis
Hiatal hernia
Plan
Patient continues to be somewhat tenuous despite 'wanting to go home on
Supplemental oxygen as needed-attempt to wean
High flow oxygen if needed
BiPAP ordered -begin to liberate
Follow chest x-ray
Nebulizers-budesonide and DuoNebs-on Trelegy at home-PFTs summarized below
Has obstructive sleep apnea and is maintained on CPAP-followed by Dr. Denise Smith-sleep study results summarized below
Cultures reviewed
Influenza negative
Unable to produce sputum
Empiric antibiotics-ceftriaxone and azithromycin initiated
Follow leukocytosis
Diuresis as tolerated-responded well to 20 mg IV Lasix--3.7 L / 24-hour
Monitor renal function, electrolytes, intake/output, lower extremity edema and weight
Replace electrolytes as needed
Check echocardiogram-pending
Follow-up x-ray
Consider cardiology evaluation
Trend troponin-0.07
Follow hemoglobin-initially 4.9 and now 7.4 after 3 units packed red blood cells
Transfuse as needed
PPI
GI evaluation ongoing-no urgent need for EGD/colonoscopy as respiratory status tenuous
Monitor blood sugar
Insulin supplementation
DVT prophylaxis-mechanical
GI prophylaxis
Nutrition per gastroenterology
Early mobilization
Patient had right upper lobe lung nodule biopsied by Dr. Garcia on 02/16/2025-nonnecrotizing granulomatous inflammation-sarcoidosis suspected, AFB and fungal stains negative, brushings and bronchoalveolar lavage as well as station 4R biopsy were
unrevealing for malignancy
Patient also had needle biopsy of posterior mediastinal mass 04/10/2025-atypical cartilaginous neoplasm favor chondrosarcoma-has appointment with Dr. Rios next Sunday
Patient follows with Dr. Denise Smith-last seen 01/30/2025-subsequently underwent robotic bronchoscopy and has not followed up in the office post bronchoscopy
Diagnostic data:
Chest x-ray 05/14/2025-CHF with underlying COPD and diffuse pneumonia is difficult to exclude
Chest CT 01/02/22: no PE; moderate emphysema noted, small mediastinal LNs/hilar LNs.
LDCT 02/14/23: No evidence of pulmonary malignancy. Moderate centrilobular emphysema, most prominent in both upper lobes. Atherosclerosis.
LDCT 02/18/24: No discrete focal parenchymal nodule or consolidation. Coronary artery calcifications. Emphysematous changes again seen. Predominantly homogeneous cystic lesion in the posteromedial right chest adjacent to the right side of the thoracic
aorta and thoracic spine, enlarged in size measuring approximately 7 cm in greatest dimension containing some small volume irregular calcification. Some slight progression of some small internal calcification in the adjacent T7 vertebral body. Some
of several differential diagnostic possibilities include duplication cyst, neurenteric cyst, neurogenic cystic tumor, hydatid cyst, cystic sarcoma and cystic teratoma.
CT Chest 12/16/24: redemonstration of a large right-sided paraspinal soft tissue mass at the midthoracic level measuring approximately 8.9 x�7.3 x 9.0�centimeters with internal calcifications increased from prior, sclerosis and mild erosive changes of
the adjacent T7 vertebral body, sclerosis of T6.� Moderate centrilobular emphysema.� 1.7 cm spiculated left upper lobe pulmonary nodule, new from prior.� 2.5 cm right hilar lymphadenopathy, progressed.
CT chest ION 02/11/2025-large mass arising from posterior mediastinum with slight enlargement compared to consistent with the patient's known spindle cell neoplasm, spiculated left upper lobe nodule similar in size to December 2024 and a new
1.1 cm posterior left upper lobe nodule worrisome for malignancy, pulmonary emphysema
PET/CT 01/12/25: 1.5 x 0.8 cm right paratracheal lymph node, 1.8 x 1.0 cm right hilar lymph node, left paratracheal lymph node measuring 0.9 x 0.7 cm.� right upper lobe consolidation, 1.8 x 0.8 cm lesion within the left upper lobe, 1.7 cm nodule
within the medial left lower lobe
PFT 04/17/22: FVC 4.37/106%, FEV1 2.52/82%, ratio 58%. No significant BD response. TLC 7.57/115%, RV 2.41/98%, DLCO 11.88/46%, DLCO/VA 1.62/41%. mild obstruction, hyperinflation, moderate reduction in DLCO
PFT 01/14/24: FVC 5/123%, FEV1 2.58/86%, ratio 52%, no significant BD response, TLC 7.87/119%, DLCO 9.92/39%, DLCO/VA 1.45/38%.� Mild obstruction. Severely reduced diffusing opacity.
Spirometry 01/30/25: FEV1 1.96L 65%, FVC 3.55L 87%, ratio 0.55, post FEV1 2.0L 66%, no BD response (moderate obstuction, declined from prior)
HST 02/07/23: SONIA 41.3 events/hour, O2 stephan 72%, 96.3% of the study time spent with O2 below 90%, 9 central apneas.
Echocardiogram 02/03/2025-EF 60-65%, mild mitral regurgitation, moderate aortic regurgitation, PA systolic 35-40
Subjective Data
-
Date of Service:
Date of Service: May 15, 2025
Chief Complaint: Pulmonary Follow Up and Dyspnea Follow Up
Subjective:
patient feels much improved, off BiPAP, wants to go home, still wheezing, diuresed, no complaints of chest pain, abdominal pain, leg weakness, has dark bowel movements, transfused 3 units packed red blood cells
Review of Systems
General: Other ( per HPI)
Objective Data
Data Reviewed
Vital Signs / I&O:
Vital Signs
Temp Pulse Resp BP Pulse Ox
97.9 F 102 19 133/69 100
05/15/25 07:28 05/15/25 10:00 05/15/25 10:00 05/15/25 09:54 05/15/25 08:00
Intake and Output
05/14/25 05/15/25 05/16/25
06:59 06:59 06:59
Intake Total 750 / 750 180 / 180
Output Total 4075 / 4075 600 / 600
Balance -3325 / -3325 -420 / -420
SaO2: 100
Nasal Cannula flow liters per minute: 4
Physical Exam
General: Respiratory Distress (n) and Comfortable
HEENT: Normocephalic, Anicteric and Moist Mucous Membranes
Cardiovascular: Regular Rhythm
Respiratory: Wheeze ( diffuse expiratory), Crackles (n), Rhonchi, Non-Labored Respirations and Accessory Resp Muscle Use (n)
GI: Soft, Non Distended and Non Tender
Neurology: Awake, Alert and No Motor Deficits
Skin: Warm, Good Color, Cyanosis (n) and Jaundice (n)
Labs/Micro/Reports
Lab Data
05/15/25 05:07
Laboratory Results
05/14/25 05/14/25
12:24 14:50
PT Cancelled 14.5
INR Cancelled 1.08
APTT Cancelled 28.6
Microbiology
05/14/25 12:24 Nasal Swab Influenza Types A & B (ZOFIA) - Final
Negative for Influenza A & B, NAAT
Negative results must be combined with clinical observations
and patient history.
Nucleic Acid Amplification test (NAAT)performed on the
[employer] platform.
[2025-05-15] MEDS: ROCEPHIN 1000 MG IV (12:58)
[2025-05-15] MEDS: LASIX 20 MG IV (12:58)
[2025-05-15] MEDS: STERILE WATER FOR INJECTION 10 ML IV (12:58)
[2025-05-15 14:35] LABS: Hematocrit 25.3 % (39.0-52.0); Hemoglobin 7.8 g/dL (13.0-18.0)
--- NOTE | 2025-05-15 14:52 | PTCARENOTE ---
Rec'd pt this AM. x1 assist OOB. MSAS 6 this AM, 1x PO Ativan given with good effect. MSAS now 1. Vital signs stable. Remains on 4L NC
--- NOTE | 2025-05-15 15:16 | W.PN.HOSP.TC ---
Today's Communication/Plan
-
duonebs
gentle diuresis
monitor hgb, egd as per GI
monitor Na
Assessment / Plan
Assessment / Plan
Physical Exam
General: Other (69y M in no acute distress. Becomes acutely dyspneic with sitting up / moving about in the bed.)
HEENT: Other (Thick neck, MMM.)
Respiratory: Other (Bibasilar rales about 1/4 up. Few scattered expiratory wheezes.)
Cardiac: S1/S2, Regular Rhythm and Murmur (II/ PRINCE)
GI: Other (Softly distended. Not tender. Pos BS.)
Musculoskeletal: No Clubbing, No Cyanosis and No Edema
Neuro: AO x 3 and Nonfocal/grossly intact
70-year-old male with past medical history of hypertension, hyperlipidemia, alcohol use disorder, GI bleed/AVM on endoscopy and CHF presents with shortness of breath.
PLAN:
#Acute Hypoxic Respiratory Failure
- 2/2 to COPD Exacerbation and CHF Exacerbation, unknown type
� Weaned off BiPAP, now on 5 L
� Continue empiric antibiotics although imaging does not clearly reveal infiltrate and therefore if cultures remain negative
�Gentle Diuresis today, 20mg IV lasix - monitor hemodynamics
� Wean O2 as tolerated; Goal o2>88%
� DuoNebs standing and as needed
� Pulmicort
� Hold off on steroids due to possible GI bleed in setting of EtOH abuser
#Acute CHF exacerbation, unknown type
� Follow-up echocardiogram
� Gentle diuresis today
� BNP elevated
#Elevated white count
Possibly secondary to sepsis with questionable infiltrate versus reactive
Monitor fever curve, white count with antibiotics
#Iron deficiency anemia
#Acute blood loss anemia
� I suspect in setting of darker black stools, upper GI bleed
� Transfused 3 units
� PPI IV twice daily
� Maintain 2 peripheral IVs
� Maintain hemoglobin goal greater than 7, transfuse as needed
� Monitor hemoglobin
� GI consulted
� Can consider endoscopy if respiratory status improves, defer to GI
#Hyponatremia
� Most likely secondary to combination of volume overload in setting of CHF along with chronic alcohol use and hydrochlorothiazide
� Stop hydrochlorothiazide
� Monitor BMP closely
� Diuretics
� Nephrology consulted
#Elevated troponin
� Most likely nonischemic myocardial injury secondary to acute CHF exacerbation
� Troponins flat
� No chest pain
� Follow-up echo
#Right upper and left upper lobe soft tissue mass calcifications
� Concerning for malignancy
� Pulmonary consulted
Tobacco use
� Cessation advised
#Alcohol use
� Continue alcohol withdrawal protocol
� Last drink 05/13
#DVT prophylaxis
� SCDs
Total time spent on today's encounter was 50 minutes which included time spent in counseling the patient/family regarding diagnosis and treatment plan as listed above, goals of care, and symptom management. Case was discussed with nursing staff,
specialists, and care coordinators/case management. All labs and imaging personally reviewed by me. Remainder the time spent in detailed review of previous records, lab data, imaging, and other medical provider documentation.
Anticipated Discharge: > 48 hours
Subjective/Interval History
-
Date of Service: May 15, 2025
off bipap, wheezing persists. states feels better
Objective Data
-
Labs:
Laboratory Results
05/15/25 05/15/25
05:07 14:26
WBC 8.5
Hgb 7.4 L 7.8 L
Hct 23.5 L 25.3 L
Plt Count 378 D
Sodium 127 L
Potassium 5.0
Chloride 99
Carbon Dioxide 21 L
BUN 12
Creatinine 0.6 L
Glucose 119 H
Calcium 8.8
Total Bilirubin 1.4 H
AST 39
ALT 42
Alkaline Phosphatase 117
Vital Signs:
Vital Signs
Temp Pulse Resp BP Pulse Ox
98.3 F 105 23 155/70 99
05/15/25 11:11 05/15/25 14:00 05/15/25 14:00 05/15/25 14:00 05/15/25 11:38
I&O
05/14/25 05/15/25 05/16/25
06:59 06:59 06:59
Intake Total 750 / 750 660 / 660
Output Total 4075 / 4075 1300 / 1300
Balance -3325 / -3325 -640 / -640
Review of Systems
-
History Source: Patient
All other systems: Not reviewed unless documented
Data Reviewed
-
Diagnostic Radiology: Report Reviewed by me
CT Scan: Report Reviewed by me
Labs: Labs Reviewed by me
--- NOTE | 2025-05-15 15:44 | W.PN.NEPH.PH ---
Today's Communication / Plan
-
Fluid restriction
Assessment/Plan
-
70-year-old male with past medical history of hypertension, hyperlipidemia, alcohol use disorder, GI bleed/AVM on endoscopy and CHF presents with shortness of breath. Patient had progressive shortness of breath for the last several days, still
actively smoking cigarettes and drinking alcohol. Patient was noted to be hypoxic, placed on BiPAP with slow improvement he drinks about 5 drinks of alcohol per day both vodka and beer.
Patient was found to have a hemoglobin of 5.5 and a sodium of 118.
Renal consultation for hyponatremia. Patient on hydrochlorothiazide outpatient
Impression.
Hyponatremia.
CHF.
Hypertension.
Symptomatic anemia.
Lung nodules
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
Spiculated left lung mass-nonnecrotizing granuloma-PET scan SUV 3.5-bronchoscopy 03/03/25
COPD
Plan.
Blood transfusion as needed
Fluid restriction
Alcohol withdrawal prophylaxis
Follow BMP
No further hydrochlorothiazide
-
-
Date of Service: May 15, 2025
CC / HPI / ROS
-
Chief Complaint:
Hyponatremia
History of Present Illness:
Hemoglobin up to 7 8 after transfusion
Sodium up to 127
BP stable high
Review of Systems:
No chest pain or shortness of breath
Labs
-
Labs:
WBC 8.5 10^3/uL (4.8-10.8) 05/15/25 05:07
RBC 3.00 10^6/uL (4.70-6.10) L 05/15/25 05:07
Hgb 7.8 g/dL (13.0-18.0) L 05/15/25 14:26
Hct 25.3 % (39.0-52.0) L 05/15/25 14:26
Plt Count 378 10^3/uL (130-400) D 05/15/25 05:07
Sodium 127 mmol/L (135-145) L 05/15/25 05:07
Potassium 5.0 mmol/L (3.5-5.1) 05/15/25 05:07
Chloride 99 mmol/L (98-107) 05/15/25 05:07
Carbon Dioxide 21 mmol/L (22-30) L 05/15/25 05:07
BUN 12 mg/dl (9-20) 05/15/25 05:07
Creatinine 0.6 mg/dL (0.7-1.3) L 05/15/25 05:07
eGFR > 60.00 05/15/25 05:07
Glucose 119 mg/dl (70-99) H 05/15/25 05:07
Calcium 8.8 mg/dl (8.4-10.2) 05/15/25 05:07
Phosphorus 4.4 mg/dl (2.5-4.5) 05/14/25 14:50
Kzw-A-Gvgblbuenuz Pept 6360 pg/ml 05/14/25 09:57
Albumin 4.1 g/dl (3.5-5.0) 05/15/25 05:07
Physical Exam
-
Vital Signs:
Vital Signs
Temp Pulse Resp BP Pulse Ox
98.3 F 98 20 155/70 100
05/15/25 11:11 05/15/25 15:19 05/15/25 15:19 05/15/25 14:00 05/15/25 15:19
Cardiovascular:: Regular rate and rhythm
Respiratory:: Bilateral: Coarse
Lung Excursion:: Normal
Abdomen:: Nontender and Soft
Bowel Sounds:: Normal
Extremity Edema:: None: Bilateral:
[2025-05-15] MEDS: ZITHROMAX INFUSION 250 IV (16:30)
[2025-05-15] MEDS: TYLENOL 650 MG PO (16:30)
[2025-05-15] MEDS: ATIVAN 1 MG PO (20:04)
[2025-05-16] VITALS (14 sets, daily range): BP systolic 111–146; BP diastolic 49–83; PULSE 2–92; BMI 26.4
[2025-05-16 04:24] LABS: Hematocrit 25.2 % (39.0-52.0); Hemoglobin 7.8 g/dL (13.0-18.0); Mean Corp Hgb Conc. 31.0 g/dL (33.0-37.0); Mean Corpuscular Volume 79.7 fL (80.0-94.0); Platelet Count 429 10^3/uL (130-400); Red Cell Dist. Width 19.4 % (11.5-14.5)
--- NOTE | 2025-05-16 04:30 | PTCARENOTE ---
Pt woke up at 02:00 confused and impulsive needing to void. Took off Bipap mask and attempted to unsteadily walk to the bathroom despite being hooked up to the monitor. Attempted to reorient patient which took a few minutes for patient to remember
where he was. During this time he had an incontinent episode of urine d/t urgency. Hygiene provided. NC placed back on pt at 5L with pulse ox at 96%. Pt resting back in bed with call sewell in reach.
[2025-05-16 05:02] LABS: ALT (SGPT) 36 U/L (0-50); AST (SGOT) 31 U/L (17-59); Albumin 3.8 g/dl (3.5-5.0); Alkaline Phosphatase 94 U/L (38-126); Blood Urea Nitrogen 13 mg/dl (9-20); Calcium 8.9 mg/dl (8.4-10.2); Carbon Dioxide 25 mmol/L (22-30); Chloride 107 mmol/L (98-107); Estimated Creatinine Clearance 95 ml/min; Glucose 93 mg/dl (70-99); Magnesium 2.3 mg/dl (1.6-2.3); Potassium 4.5 mmol/L (3.5-5.1); Sodium 135 mmol/L (135-145); Total Protein 6.1 g/dl (6.3-8.2); eGFR > 60.00
[2025-05-16] MEDS: PULMICORT 0.5 MG INH ×2 (07:44→20:23)
[2025-05-16] MEDS: DUONEB 3 ML INH ×4 (07:44→20:23)
[2025-05-16] MEDS: PROTONIX IV 40 MG IV (08:14)
[2025-05-16] MEDS: NICODERM TRANSDERMAL 14 MG TRANSDERM (08:14)
[2025-05-16] MEDS: LIPITOR 40 MG PO (08:15)
[2025-05-16] MEDS: THIAMINE INJECTION 200 MG IV ×2 (08:15→19:42)
[2025-05-16] MEDS: TYLENOL 650 MG PO ×2 (08:15→21:36)
[2025-05-16] MEDS: NSS (PRESERVATIVE FREE) 10 ML IV (08:15)
[2025-05-16] MEDS: FOLVITE 1 MG PO (08:16)
--- NOTE | 2025-05-16 09:27 | W.PN.GI.CBS2 ---
Addendum entered and electronically signed by Michaela Morris DO 05/16/25 11:07:
The patient was seen and examined by me independently in collaboration with the nurse practitioner.
Past medical history/social history/medications/allergies/family history reviewed.
Lab data and imaging data reviewed.
Patient's hemoglobin remains stable. Has some abdominal distension, denies pain or discomfort. He was drinking some prune juice at time of evaluation to help move his bowels. He had 2 small BMs yesterday, admitted to a sense of incomplete
evacuation. Suspect some degree of aerophagia.
atient seen in follow-up, reports breathing is more comfortable, currently on nonrebreather. He would like to be discharged home today given it is 15 of May. He does not feel he is bleeding. His hemoglobin dropped to 4.9, transfused with 3 units
of PRBC, repeat hemoglobin 7.4. Patient ate breakfast this morning.
A/P:
70 y/o man with COPD, HTN, CHF and GI AVMs admitted with hypoxemic respiratory failure found to be anemic, hemoglobin down to 4.9. He received a total of 3 units of PRBC with appropriate response. Tenuous respiratory status, mediastinal mass and new
areas of concern on CT Chest-- right upper and left upper lobes and b/l moderate sized pleural effusions.
His BUN/CR is low. Suspect his SOB is 2/2 cardiopulmonary issues rather than symptomatic anemia. He has AVMs that are likely oozing slowly, he has heme positive stool, and likely always will. He does not appear to be actively bleeding, his
hemoglobin has remained stable. High risk EGD due to his tenuous respiratory status.
Plan:
-Okay to change to PO PPI BID
-H&H stable, no signs of active or unstable GI bleeding
-wean O2, as tolerated, defer to pulm. Suspect will need supplemental O2 on d/c due to ongoing requirements
-if needs eventual scope would only start with upper as he has had avms in past EGDs (once once with some bleeding)
-colonoscopy in 2020 with diminutive polyp and diverticulosis not likely source of anemia
-mild elevation in LFTs resolved, no evidence of alcohol hepatitis, just needs abstinence
-Mild abdominal distension-- give simethicone now and add prn, suspect some aerophagia, possibly due to electrolyte abnormalities as well (Na 118 on admission)
-He is very eager for d/c, from a GI perspective, okay as no concerns for active GI bleeding, but if he does stay for another day, would obtain abdominal xray in AM if still distended
Original Note:
Today's Communication / Plan
-
hbg remains stable at 7.8 today but still with increased hypoxemia currently on 6 liters with drop in sat with ambulation
small black stool 05/15 but no signs of aggressive bleeding
c/o some bloating and noted distention on exam-- may be aerophagia, ileus(Na down to 118 on admission) vs other -- will add Simethacone dose now then PRN, taking prune juice, encouraged OOB- ambulation
if abdominal distention not improving may need abdominal imaging
cont diet as tolerated -- decrease diet for nausea/vomiting or increasing distention
hold EGD without active bleeding and continued hypoxemia
ETOH abstinence - monitor for withdrawal
cont PPI BID
renal following with hyponatremia -- now corrected
Assessment / Plan
-
This patient is a 70 y/o man with COPD, HTN, CHF and GI AVMs. he was admitted for acute SOB and his hgb down to 4.9. He does also have a mediastinal mass. He does not have evidence of active GI bleeding.
His BUN/CR is low but noted with significant shortness and hypoxemia to GI issues but rather his cardiopulm issues. His xray shows chf vs infiltrate. colonoscopy in 2020 with diminutive polyp and diverticulosis not likely source of anemia.
Laboratory Tests
05/14/25 05/15/25 05/15/25
23:56 05:07 14:26
Hgb 6.6 L* D 7.4 L 7.8 L
05/16/25
04:01
Hgb 7.8 L
-anemia with hbg down to 4.9 after admission with hx HAILY
-hx AVM's/HH on prior EGD
-abdominal distention-- developing ileus with electrolyte imbalance vs aerophagia vs other
-hypoxemia
-hyponatremia on admission
-lung mass
-elevated trop/CHF exacerbation
-COPD
-ETOH abuse
PLAN:
hbg remains stable at 7.8 today but still with increased hypoxemia currently on 6 liters with drop in sat with ambulation
small black stool / but no signs of aggressive bleeding
c/o some bloating and noted distention on exam-- may be aerophagia, ileus(Na down to 118 on admission) vs other -- will add Simethacone dose now then PRN, taking prune juice, encouraged OOB- ambulation
if abdominal distention not improving may need abdominal imaging
cont diet as tolerated -- decrease diet for nausea/vomiting or increasing distention
hold EGD without active bleeding and continued hypoxemia
ETOH abstinence - monitor for withdrawal
cont PPI BID
renal following with hyponatremia
Subjective
Subjective
Date of Service: May 16, 2025
cholesterol lowering diet, black stool 05/15 and feeling constipated with bloating
Objective
Data Reviewed
Laboratory Data:
Laboratory Results
05/16/25 04:01
05/16/25 04:01
Laboratory Results
PT 14.5 Sec (11.4-14.6) 05/14/25 14:50
INR 1.08 05/14/25 14:50
APTT 28.6 Sec (23.4-35.0) 05/14/25 14:50
Phosphorus 4.4 mg/dl (2.5-4.5) 05/14/25 14:50
Magnesium 2.3 mg/dl (1.6-2.3) 05/16/25 04:01
Total Bilirubin 0.5 mg/dl (0.2-1.3) 05/16/25 04:01
AST 31 U/L (17-59) 05/16/25 04:01
ALT 36 U/L (0-50) 05/16/25 04:01
Alkaline Phosphatase 94 U/L (38-126) 05/16/25 04:01
Vital Signs and I&O:
Vital Signs
Temp Pulse Resp BP Pulse Ox
97.6 F 95 16 111/49 99
05/16/25 07:40 05/16/25 07:47 05/16/25 07:47 05/16/25 06:00 05/16/25 07:47
I&O
05/15/25 05/16/25 05/17/25
06:59 06:59 06:59
Intake Total 750 / 750 1320 / 1320
Output Total 4075 / 4075 3250 / 3250
Balance -3325 / -3325 -1930 / -1930
Physical Exam
Physical Exam
HEENT: Anicteric and Moist mucous membranes
Cardiology: Normal Sinus Rhythm
Pulmonary: Other (course bases )
GI: Soft, Distended, Non Tender and Other (tympanic )
Extremities: No Edema
Neuro: Non Focal
[2025-05-16] MEDS: MYLICON 80 MG PO ×2 (09:43→16:01)
--- NOTE | 2025-05-16 09:44 | W.PN.NEPH.PH ---
Today's Communication / Plan
-
lasix
Assessment/Plan
-
70-year-old male with past medical history of hypertension, hyperlipidemia, alcohol use disorder, GI bleed/AVM on endoscopy and CHF presents with shortness of breath. Patient had progressive shortness of breath for the last several days, still
actively smoking cigarettes and drinking alcohol. Patient was noted to be hypoxic, placed on BiPAP with slow improvement he drinks about 5 drinks of alcohol per day both vodka and beer.
Patient was found to have a hemoglobin of 5.5 and a sodium of 118.
Renal consultation for hyponatremia. Patient on hydrochlorothiazide outpatient
Impression.
Hyponatremia.
CHF.
Hypertension.
Symptomatic anemia.
Lung nodules
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
Spiculated left lung mass-nonnecrotizing granuloma-PET scan SUV 3.5-bronchoscopy 03/03/25
COPD
Plan.
Blood transfusion as needed
Fluid restriction
Alcohol withdrawal prophylaxis
Follow BMP
No further hydrochlorothiazide
lasix today again
wean NC O2 as allowed
-
-
Date of Service: May 16, 2025
CC / HPI / ROS
-
Chief Complaint:
Hyponatremia
History of Present Illness:
Hemoglobin stable at 7.8 after transfusion
Sodium up to 135
BP stable
on supplemental O2 4L
Review of Systems:
No chest pain or shortness of breath
Labs
-
Labs:
WBC 13.7 10^3/uL (4.8-10.8) H 05/16/25 04:01
RBC 3.16 10^6/uL (4.70-6.10) L 05/16/25 04:01
Hgb 7.8 g/dL (13.0-18.0) L 05/16/25 04:01
Hct 25.2 % (39.0-52.0) L 05/16/25 04:01
Plt Count 429 10^3/uL (130-400) H 05/16/25 04:01
Sodium 135 mmol/L (135-145) D 05/16/25 04:01
Potassium 4.5 mmol/L (3.5-5.1) 05/16/25 04:01
Chloride 107 mmol/L (98-107) 05/16/25 04:01
Carbon Dioxide 25 mmol/L (22-30) 05/16/25 04:01
BUN 13 mg/dl (9-20) 05/16/25 04:01
Creatinine 0.7 mg/dL (0.7-1.3) 05/16/25 04:01
eGFR > 60.00 05/16/25 04:01
Glucose 93 mg/dl (70-99) 05/16/25 04:01
Calcium 8.9 mg/dl (8.4-10.2) 05/16/25 04:01
Phosphorus 4.4 mg/dl (2.5-4.5) 05/14/25 14:50
Tbd-Z-Qkrhnfshahy Pept 6360 pg/ml 05/14/25 09:57
Albumin 3.8 g/dl (3.5-5.0) 05/16/25 04:01
Physical Exam
-
Vital Signs:
Vital Signs
Temp Pulse Resp BP Pulse Ox
97.6 F 95 16 111/49 99
05/16/25 07:40 05/16/25 07:47 05/16/25 07:47 05/16/25 06:00 05/16/25 07:47
Cardiovascular:: Regular rate and rhythm
Respiratory:: Bilateral: Coarse
Lung Excursion:: Normal
Abdomen:: Nontender and Soft
Bowel Sounds:: Normal
Extremity Edema:: None: Bilateral:
--- NOTE | 2025-05-16 10:02 | PTCARENOTE ---
Rec'd pt this AM. Vital signs stable. Pt repeatedly complaining to family and medical staff that he is not allowed to get OOB. RN educated pt reqeatedly that we request he ask for assistance as yesterday he was slightly unsteady when he first gets
OOB. Pt demanding to be able to get up independently. Refusing to ask for assistance. RN observed pt get OOB to the bathroom with walker and pt was able to ambulate without assistance and was steady on his feet. RN requested he pull the cord from
the bathroom when finished. He agreed to do so. Extensive education provided and risks of falling explained repeatedly. pt stated that he understands the risk and he would still wish to get up independently. In addition, smoking and ETOH cessation
was encouraged by all members of medical team and RN. Pt reluctant to state that he will stop completely.
--- NOTE | 2025-05-16 10:39 | W.PN.PUL.V3 ---
Today's Communication / Plan
-
Continue diuresis
Methylprednisolone discontinued-monitor wheezing
Continue nebulizers
Assess for discharge supplemental oxygen needs
Continue antibiotics
Outpatient pulmonary/sleep disorders follow-up
Assessment
-
70-year-old smoking male with a history of hypertension, hyperlipidemia, alcohol use disorder, GI bleed/AVM on endoscopy and CHF presents with shortness of breath and noted to be hypoxemic requiring BiPAP, severely anemic, and
hyponatremic-history tutor/pulmonary consulted for hypoxemia/ pneumonia/CHF management 05/14/2025.
Respiratory failure-acute hypoxemic due to CHF and pneumonia
CHF-EF unknown
Dniimesyb-gkmbwsjul-rjprjqnh
COPD with acute exacerbation
GI bleed
Leukocytosis-WBC 17.2
Bhpgen-tzqqlsjahy-kwngkkekbw 5.5
Reactive thrombocytosis-platelet 552
Metabolic acidosis
Hyperglycemia
Hyponatremia
Conditions present prior to admission:
Hypertension.
Hyperlipidemia.
GI bleed/AVM on endoscopy.
CHF.
COPD-centrilobular
Daily smoker.
Alcohol use disorder.
NELLY-severe
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
Spiculated left lung mass-nonnecrotizing granuloma-PET scan SUV 3.5-bronchoscopy 03/03/25
PATTIE on BAL 02/16/25-unknown significance-suspect contaminant
Overweight
Fatty liver
Aortic stenosis
Hiatal hernia
Plan
Patient continues to be somewhat tenuous despite 'wanting to go'
Supplemental oxygen as needed-attempt to wean-assess discharge supplemental oxygen needs
BiPAP ordered -begin to liberate
Follow chest x-ray
Nebulizers-budesonide and DuoNebs-on Trelegy at home-PFTs summarized below
Has obstructive sleep apnea and is maintained on CPAP-followed by Dr. Denise Smith-sleep study results summarized below
Cultures reviewed
Influenza negative
Unable to produce sputum
Empiric antibiotics-ceftriaxone and azithromycin initiated
Follow leukocytosis
Diuresis as tolerated-responded well to 20 mg IV Lasix--3.7 L / 24-hour
Monitor renal function, electrolytes, intake/output, lower extremity edema and weight
Replace electrolytes as needed
Serum creatinine stable with aggressive diuresis, no significant potassium losses and hyponatremia improved
Echocardiogram 05/14/2025-EF 55-60%, intermediate diastolic function, moderate mitral regurgitation, aortic stenosis with GIDEON 1.2 cm-moderate stenosis
Follow-up x-ray
Patient follows with Dr. Manny Velázquez as an outpatient
Trend troponin-0.07
Follow hemoglobin-initially 4.9 and now 7.8 after 3 units packed red blood cells
Transfuse as needed
PPI
GI evaluation ongoing-no urgent need for EGD/colonoscopy as respiratory status tenuous
Abdominal bloating possibly related to fluid retention and aerophagia/gas
Monitor blood sugar
Insulin supplementation
DVT prophylaxis-mechanical
GI prophylaxis
Nutrition per gastroenterology
Early mobilization
Patient had right upper lobe lung nodule biopsied by Dr. Garcia on 02/16/2025-nonnecrotizing granulomatous inflammation-sarcoidosis suspected, AFB and fungal stains negative, brushings and bronchoalveolar lavage as well as station 4R biopsy were
unrevealing for malignancy
Patient also had needle biopsy of posterior mediastinal mass 04/10/2025-atypical cartilaginous neoplasm favor chondrosarcoma-has appointment with Dr. Rios next Sunday
Patient follows with Dr. Denise Smith-last seen 01/30/2025-subsequently underwent robotic bronchoscopy and has not followed up in the office post bronchoscopy
Diagnostic data:
Chest x-ray 05/14/2025-CHF with underlying COPD and diffuse pneumonia is difficult to exclude
Chest CT 01/02/22: no PE; moderate emphysema noted, small mediastinal LNs/hilar LNs.
LDCT 02/14/23: No evidence of pulmonary malignancy. Moderate centrilobular emphysema, most prominent in both upper lobes. Atherosclerosis.
LDCT 02/18/24: No discrete focal parenchymal nodule or consolidation. Coronary artery calcifications. Emphysematous changes again seen. Predominantly homogeneous cystic lesion in the posteromedial right chest adjacent to the right side of the thoracic
aorta and thoracic spine, enlarged in size measuring approximately 7 cm in greatest dimension containing some small volume irregular calcification. Some slight progression of some small internal calcification in the adjacent T7 vertebral body. Some
of several differential diagnostic possibilities include duplication cyst, neurenteric cyst, neurogenic cystic tumor, hydatid cyst, cystic sarcoma and cystic teratoma.
CT Chest 12/16/24: redemonstration of a large right-sided paraspinal soft tissue mass at the midthoracic level measuring approximately 8.9 x�7.3 x 9.0�centimeters with internal calcifications increased from prior, sclerosis and mild erosive changes of
the adjacent T7 vertebral body, sclerosis of T6.� Moderate centrilobular emphysema.� 1.7 cm spiculated left upper lobe pulmonary nodule, new from prior.� 2.5 cm right hilar lymphadenopathy, progressed.
CT chest ION 02/11/2025-large mass arising from posterior mediastinum with slight enlargement compared to consistent with the patient's known spindle cell neoplasm, spiculated left upper lobe nodule similar in size to December 2024 and a new
1.1 cm posterior left upper lobe nodule worrisome for malignancy, pulmonary emphysema
PET/CT 01/12/25: 1.5 x 0.8 cm right paratracheal lymph node, 1.8 x 1.0 cm right hilar lymph node, left paratracheal lymph node measuring 0.9 x 0.7 cm.� right upper lobe consolidation, 1.8 x 0.8 cm lesion within the left upper lobe, 1.7 cm nodule
within the medial left lower lobe
PFT 04/17/22: FVC 4.37/106%, FEV1 2.52/82%, ratio 58%. No significant BD response. TLC 7.57/115%, RV 2.41/98%, DLCO 11.88/46%, DLCO/VA 1.62/41%. mild obstruction, hyperinflation, moderate reduction in DLCO
PFT 01/14/24: FVC 5/123%, FEV1 2.58/86%, ratio 52%, no significant BD response, TLC 7.87/119%, DLCO 9.92/39%, DLCO/VA 1.45/38%.� Mild obstruction. Severely reduced diffusing opacity.
Spirometry 01/30/25: FEV1 1.96L 65%, FVC 3.55L 87%, ratio 0.55, post FEV1 2.0L 66%, no BD response (moderate obstuction, declined from prior)
HST 02/07/23: SONIA 41.3 events/hour, O2 stephan 72%, 96.3% of the study time spent with O2 below 90%, 9 central apneas.
Echocardiogram 02/03/2025-EF 60-65%, mild mitral regurgitation, moderate aortic regurgitation, PA systolic 35-40
Subjective Data
-
Date of Service:
Date of Service: May 16, 2025
Chief Complaint: Pulmonary Follow Up and Dyspnea Follow Up
Subjective:
once again anxious to go home, overall feels better, still some shortness of breath with exertion, still requiring oxygen, no chest pain or abdominal pain but complains of abdominal bloating, tolerating BiPAP at night
Review of Systems
General: Other ( Per HPI)
Objective Data
Data Reviewed
Vital Signs / I&O:
Vital Signs
Temp Pulse Resp BP Pulse Ox
97.6 F 95 16 111/49 99
05/16/25 07:40 05/16/25 07:47 05/16/25 07:47 05/16/25 06:00 05/16/25 07:47
Intake and Output
05/15/25 05/16/25 05/17/25
06:59 06:59 06:59
Intake Total 750 / 750 1320 / 1320
Output Total 4075 / 4075 3250 / 3250
Balance -3325 / -3325 -1930 / -1930
SaO2: 99
Nasal Cannula flow liters per minute: 6
Physical Exam
General: Respiratory Distress (n) and Comfortable
HEENT: Normocephalic, Anicteric and Moist Mucous Membranes
Cardiovascular: Regular Rhythm
Respiratory: Wheeze ( diffuse expiratory), Crackles (n), Rhonchi, Non-Labored Respirations and Accessory Resp Muscle Use (n)
GI: Soft, Non Distended and Non Tender
Neurology: Awake, Alert and No Motor Deficits
Skin: Warm, Good Color, Cyanosis (n) and Jaundice (n)
Labs/Micro/Reports
Lab Data
05/16/25 04:01
05/16/25 04:01
Microbiology
05/14/25 12:24 Nasal Swab Influenza Types A & B (ZOFIA) - Final
Negative for Influenza A & B, NAAT
Negative results must be combined with clinical observations
and patient history.
Nucleic Acid Amplification test (NAAT)performed on the
[employer] platform.
[2025-05-16] MEDS: LASIX 20 MG IV (10:49)
[2025-05-16] MEDS: STERILE WATER FOR INJECTION 10 ML IV (12:14)
[2025-05-16] MEDS: ROCEPHIN 1000 MG IV (12:14)
--- NOTE | 2025-05-16 12:29 | W.PN.HOSP.TC ---
Today's Communication/Plan
-
abx
lasix again
duonebs
amb pulse ox for home o2 eval
fwr
wean o2
monitor hgb
Assessment / Plan
Assessment / Plan
Physical Exam
General: Other (69y M in no acute distress. Becomes acutely dyspneic with sitting up / moving about in the bed.)
HEENT: Other (Thick neck, MMM.)
Respiratory: Other (Bibasilar rales about 1/4 up. Few scattered expiratory wheezes.)
Cardiac: S1/S2, Regular Rhythm and Murmur (II/ PRINCE)
GI: Other (Softly distended. Not tender. Pos BS.)
Musculoskeletal: No Clubbing, No Cyanosis and No Edema
Neuro: AO x 3 and Nonfocal/grossly intact
70-year-old male with past medical history of hypertension, hyperlipidemia, alcohol use disorder, GI bleed/AVM on endoscopy and CHF presents with shortness of breath.
PLAN:
#Acute Hypoxic Respiratory Failure
- 2/2 to COPD Exacerbation and CHF Exacerbation, HFpEF +/- Pneumonia
� Weaned off BiPAP, now on 5 L
� Continue empiric antibiotics
�Gentle Diuresis today, 20mg IV lasix again today- monitor hemodynamics
� Wean O2 as tolerated; Goal o2>88%; most likely will need to be discharged on home O2; understands risk of smokign while on o2
� DuoNebs standing and as needed
� Pulmicort
� Hold off on steroids due to possible GI bleed in setting of EtOH abuser
#Acute CHF exacerbation, Acute HFpEF
� Follow-up echocardiogram - EF 55-60%; Mild concen LVH; Mod
� Gentle diuresis today again
� Fluid restriction
-Monitor daily weights, Is&Os
#Elevated white count
Possibly secondary to sepsis with questionable infiltrate versus reactive
Monitor fever curve, white count with antibiotics
#Iron deficiency anemia
#Acute blood loss anemia
� I suspect in setting of darker black stools, upper GI bleed - now stabilized
� Transfused 3 units
� PPI IV twice daily - switched to PO BID
� Maintain 2 peripheral IVs
� Maintain hemoglobin goal greater than 7, transfuse as needed
� Monitor hemoglobin
� GI consulted
� Can consider endoscopy if respiratory status improves; if hgb remains stable, may be done outpt - defer to GI
#Hyponatremia
� Most likely secondary to combination of volume overload in setting of CHF along with chronic alcohol use and hydrochlorothiazide
� Stop hydrochlorothiazide
� Monitor BMP closely
� Diuretics
- FWR
� Nephrology consulted
#Elevated troponin
� Most likely nonischemic myocardial injury secondary to acute CHF exacerbation
� Troponins flat
� No chest pain
� Follow-up echo: No WMA; EF 55-60%; Mild concen LVH; Mod
#Right upper and left upper lobe soft tissue mass calcifications
� Concerning for malignancy
� Pulmonary consulted
-F/u outpt
Tobacco use
� Cessation advised
#Alcohol use
� Continue alcohol withdrawal protocol
� Last drink 05/13
#DVT prophylaxis
� SCDs
Anticipated Discharge: > 48 hours
Subjective/Interval History
-
Date of Service: May 16, 2025
Feeling better although still wheezing, improved
Objective Data
-
Labs:
Laboratory Results
05/16/25
04:01
WBC 13.7 H
Hgb 7.8 L
Hct 25.2 L
Plt Count 429 H
Sodium 135 D
Potassium 4.5
Chloride 107
Carbon Dioxide 25
BUN 13
Creatinine 0.7
Glucose 93
Calcium 8.9
Total Bilirubin 0.5
AST 31
ALT 36
Alkaline Phosphatase 94
Vital Signs:
Vital Signs
Temp Pulse Resp BP Pulse Ox
97.6 F 91 16 146/82 98
05/16/25 07:40 05/16/25 11:24 05/16/25 11:24 05/16/25 10:49 05/16/25 11:24
I&O
05/15/25 05/16/25 05/17/25
06:59 06:59 06:59
Intake Total 750 / 750 1320 / 1320
Output Total 4075 / 4075 3250 / 3250
Balance -3325 / -3325 -1930 / -1930
Review of Systems
-
History Source: Patient
All other systems: Not reviewed unless documented
Data Reviewed
-
Diagnostic Radiology: Report Reviewed by me
CT Scan: Report Reviewed by me
Labs: Labs Reviewed by me
[2025-05-16] MEDS: SENOKOT 8.6 MG PO ×2 (15:43→21:36)
[2025-05-16] MEDS: ZITHROMAX INFUSION 250 IV (16:01)
[2025-05-16] MEDS: PROTONIX 40 MG PO (19:42)
--- NOTE | 2025-05-16 20:42 | W.PN.UPDATE ---
Update Note
Progress Note Update
Abdominal xray ordered for mild distension on exam.
IMPRESSION: Air is present within colon, without significant distention. No significantly dilated air-filled loops of small bowel are identified.
Bowel regimen added. Simethicone prn. Hgb remains stable wtihout signs of active bleeding. No plans for inpatient evaluation given respiratory status.
GI will sign off, recommend outpatient GI f/u. Please call with questions.
[2025-05-17] VITALS (11 sets, daily range): BP systolic 107–146; BP diastolic 58–72; PULSE 2–94; BMI 26.3
[2025-05-17 04:45] LABS: Hematocrit 26.5 % (39.0-52.0); Hemoglobin 8.1 g/dL (13.0-18.0); Mean Corp Hgb Conc. 30.6 g/dL (33.0-37.0); Mean Corpuscular Volume 81.5 fL (80.0-94.0); Platelet Count 458 10^3/uL (130-400); Red Cell Dist. Width 19.9 % (11.5-14.5)
[2025-05-17 05:09] LABS: ALT (SGPT) 38 U/L (0-50); AST (SGOT) 22 U/L (17-59); Albumin 3.8 g/dl (3.5-5.0); Alkaline Phosphatase 95 U/L (38-126); Blood Urea Nitrogen 15 mg/dl (9-20); Calcium 8.9 mg/dl (8.4-10.2); Carbon Dioxide 27 mmol/L (22-30); Chloride 104 mmol/L (98-107); Estimated Creatinine Clearance 95 ml/min; Glucose 95 mg/dl (70-99); Potassium 4.7 mmol/L (3.5-5.1); Sodium 135 mmol/L (135-145); Total Protein 6.0 g/dl (6.3-8.2); eGFR > 60.00
[2025-05-17] MEDS: DUONEB 3 ML INH ×4 (07:59→19:17)
[2025-05-17] MEDS: PULMICORT 0.5 MG INH ×2 (07:59→19:17)
--- NOTE | 2025-05-17 08:50 | W.PN.HOSP.TC ---
Today's Communication/Plan
-
Continue IV Lasix
Assessment / Plan
Assessment / Plan
70-year-old male with past medical history of hypertension, hyperlipidemia, alcohol use disorder, GI bleed/AVM on endoscopy and CHF presents with shortness of breath.
PLAN:
#Acute Hypoxic Respiratory Failure
- 2/2 to COPD Exacerbation and CHF Exacerbation, HFpEF +/- Pneumonia
� Weaned off BiPAP, now on 3 L
� Continue empiric antibiotics, pulmonology following
� Wean O2 as tolerated; Goal o2>88%; most likely will need to be discharged on home O2; understands risk of smoking while on o2
� DuoNebs standing and as needed
� Pulmicort
� Hold off on steroids due to possible GI bleed in setting of EtOH abuser
#Acute CHF exacerbation, Acute HFpEF
� Follow-up echocardiogram - EF 55-60%; Mild concen LVH; Mod
� Lasix 40 mg IV twice daily
� Fluid restriction
- Monitor daily weights, Is&Os
#Elevated white count
Possibly secondary to sepsis with questionable infiltrate versus reactive
Monitor fever curve, white count with antibiotics
#Iron deficiency anemia
#Acute blood loss anemia
� Suspect in setting of darker black stools, upper GI bleed - now resolved
� Transfused 3 units
� PPI IV twice daily - switched to PO BID
� Maintain 2 peripheral IVs
� Seen by GI, bloody stools resolved, hemoglobin stable, GI has signed off
#Hyponatremia
� Most likely secondary to combination of volume overload in setting of CHF along with chronic alcohol use and hydrochlorothiazide
� Stop hydrochlorothiazide
� Monitor BMP closely
� Lasix 40 mg IV twice daily
- FWR
� Nephrology consulted
#Elevated troponin
� Most likely nonischemic myocardial injury secondary to acute CHF exacerbation
� Troponins flat
� No chest pain
� Follow-up echo: No WMA; EF 55-60%; Mild concen LVH; Mod
#Right upper and left upper lobe soft tissue mass calcifications
� Concerning for malignancy
� Pulmonary consulted
- F/u outpt
Tobacco use
� Cessation advised
#Alcohol use
� Continue alcohol withdrawal protocol
� Last drink 05/13
DVT prophylaxis�SCDs secondary to GI bleed
Full code
Total time spent to see the patient on the floor, examine the patient, review data and lab results, discuss treatment plan with patient, nursing staff around 50 minutes.
Physical Exam
General: Other (69y M in no acute distress. Becomes acutely dyspneic with sitting up / moving about in the bed.)
HEENT: Other (Thick neck, MMM.)
Respiratory: Other (Bibasilar rales about 1/4 up. Few scattered expiratory wheezes.)
Cardiac: S1/S2, Regular Rhythm and Murmur (II/ PRINCE)
GI: Other (Softly distended. Not tender. Pos BS.)
Musculoskeletal: No Clubbing, No Cyanosis and No Edema
Neuro: AO x 3 and Nonfocal/grossly intact
Anticipated Discharge: 24 - 48 hours
Subjective/Interval History
-
Date of Service: May 17, 2025
Patient reports improvement in his breathing. Also has important abdominal distention. No chest pain, no vomiting. No fever.
Objective Data
-
Labs:
Laboratory Results
05/17/25
04:27
WBC 10.7
Hgb 8.1 L
Hct 26.5 L
Plt Count 458 H
Sodium 135
Potassium 4.7
Chloride 104
Carbon Dioxide 27
BUN 15
Creatinine 0.7
Glucose 95
Calcium 8.9
Total Bilirubin 0.5
AST 22
ALT 38
Alkaline Phosphatase 95
Vital Signs:
Vital Signs
Temp Pulse Resp BP Pulse Ox
97.7 F 86 16 113/61 98
05/16/25 23:00 05/17/25 08:01 05/17/25 08:01 05/17/25 06:00 05/17/25 08:01
I&O
05/16/25 05/17/25 05/18/25
06:59 06:59 06:59
Intake Total 1320 / 1320 300 / 300
Output Total 3250 / 3250 1450 / 1450
Balance -1930 / -1930 -1150 / -1150
[2025-05-17] MEDS: NICODERM TRANSDERMAL 14 MG TRANSDERM (09:03)
[2025-05-17] MEDS: PROTONIX 40 MG PO ×2 (09:11→20:11)
[2025-05-17] MEDS: LIPITOR 40 MG PO (09:11)
[2025-05-17] MEDS: FOLVITE 1 MG PO (09:12)
[2025-05-17] MEDS: THIAMINE INJECTION 200 MG IV (09:13)
[2025-05-17] MEDS: FLUSH (NSS) 1 FLUSH IV ×2 (09:14→16:58)
--- NOTE | 2025-05-17 10:40 | W.PN.PUL.V3 ---
Today's Communication / Plan
-
Wean oxygen
Likely will need home oxygen
Transition to home CPAP at time of discharge
Gentle diuresis-wheezing much improved with aggressive diuresis--6.5 L / 72-hour
Steroids discontinued
Outpatient pulmonary follow-up
Assessment
-
70-year-old smoking male with a history of hypertension, hyperlipidemia, alcohol use disorder, GI bleed/AVM on endoscopy and CHF presents with shortness of breath and noted to be hypoxemic requiring BiPAP, severely anemic, and
hyponatremic-director of product management/pulmonary consulted for hypoxemia/ pneumonia/CHF management 05/14/2025.
Respiratory failure-acute hypoxemic due to CHF and pneumonia
CHF-preserved EF-carries a lot of fluid in his abdomen and less so in his extremities-diuresed 6.5 L / 72 hours
Sqlabypgw-cgxmicmlg-kujisfpr
COPD with acute exacerbation
Diffuse wheezing-combination of COPD and CHF
GI bleed
Leukocytosis-WBC 17.2
Fhmztp-eimlavlobj-ecoqzadiyx 5.5
Reactive thrombocytosis-platelet 552
Metabolic acidosis
Hyperglycemia
Hyponatremia
Conditions present prior to admission:
Hypertension.
Hyperlipidemia.
GI bleed/AVM on endoscopy.
CHF.
COPD-centrilobular
Daily smoker.
Alcohol use disorder.
NELLY-severe
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
Spiculated left lung mass-nonnecrotizing granuloma-PET scan SUV 3.5-bronchoscopy 03/03/25
PATTIE on BAL 02/16/25-unknown significance-suspect contaminant
Overweight
Fatty liver
Aortic stenosis
Hiatal hernia
Plan
Respiratory status much improved with much less wheezing I suspect due to improved CHF and COPD treatment
Supplemental oxygen as needed-attempt to wean--05/16/2025 ambulatory pulse ox suggests need for home O2
BiPAP ordered -begin to liberate-has CPAP at home and is compliant
Follow chest x-ray
Nebulizers-budesonide and DuoNebs-on Trelegy at home-PFTs summarized below
Has obstructive sleep apnea and is maintained on CPAP-followed by Dr. Denise Smith-sleep study results summarized below
Cultures reviewed
Influenza negative
Unable to produce sputum
Empiric antibiotics-ceftriaxone and azithromycin initiated-finished a finite course
Follow leukocytosis
Diuresis as tolerated-responded very well with -6.5 L / 72 hours-interestingly no hypokalemia and serum sodium/hyponatremia much improved
Monitor renal function, electrolytes, intake/output, lower extremity edema and weight
Replace electrolytes as needed
Serum creatinine stable with aggressive diuresis, no significant potassium losses and hyponatremia improved
Echocardiogram 05/14/2025-EF 55-60%, intermediate diastolic function, moderate mitral regurgitation, aortic stenosis with GIDEON 1.2 cm-moderate stenosis
Follow-up x-ray
Patient follows with Dr. Manny Velázquez as an outpatient
Trend troponin-0.07
Patient told to monitor weight daily and call physician if steady increase in weight as likely a sign of fluid overload
Follow hemoglobin-initially 4.9 and now 7.8 after 3 units packed red blood cells-now stable at 8.1
Transfuse as needed
PPI
GI evaluation ongoing-no urgent need for EGD/colonoscopy as respiratory status tenuous
Abdominal bloating possibly related to fluid retention and aerophagia/gas
Monitor blood sugar
Insulin supplementation
DVT prophylaxis-mechanical
GI prophylaxis
Nutrition per gastroenterology
Early mobilization
Smoking cessation counseling ongoing
Alcohol cessation counseling also provided
Patient had right upper lobe lung nodule biopsied by Dr. Garcia on 02/16/2025-nonnecrotizing granulomatous inflammation-sarcoidosis suspected, AFB and fungal stains negative, brushings and bronchoalveolar lavage as well as station 4R biopsy were
unrevealing for malignancy
Patient also had needle biopsy of posterior mediastinal mass 04/10/2025-atypical cartilaginous neoplasm favor chondrosarcoma-has appointment with Dr. Rios next Sunday
Patient follows with Dr. Denise Smith-last seen 01/30/2025-subsequently underwent robotic bronchoscopy and has not followed up in the office post bronchoscopy
Diagnostic data:
Chest x-ray 05/14/2025-CHF with underlying COPD and diffuse pneumonia is difficult to exclude
Chest CT 01/02/22: no PE; moderate emphysema noted, small mediastinal LNs/hilar LNs.
LDCT 02/14/23: No evidence of pulmonary malignancy. Moderate centrilobular emphysema, most prominent in both upper lobes. Atherosclerosis.
LDCT 02/18/24: No discrete focal parenchymal nodule or consolidation. Coronary artery calcifications. Emphysematous changes again seen. Predominantly homogeneous cystic lesion in the posteromedial right chest adjacent to the right side of the thoracic
aorta and thoracic spine, enlarged in size measuring approximately 7 cm in greatest dimension containing some small volume irregular calcification. Some slight progression of some small internal calcification in the adjacent T7 vertebral body. Some
of several differential diagnostic possibilities include duplication cyst, neurenteric cyst, neurogenic cystic tumor, hydatid cyst, cystic sarcoma and cystic teratoma.
CT Chest 12/16/24: redemonstration of a large right-sided paraspinal soft tissue mass at the midthoracic level measuring approximately 8.9 x�7.3 x 9.0�centimeters with internal calcifications increased from prior, sclerosis and mild erosive changes of
the adjacent T7 vertebral body, sclerosis of T6.� Moderate centrilobular emphysema.� 1.7 cm spiculated left upper lobe pulmonary nodule, new from prior.� 2.5 cm right hilar lymphadenopathy, progressed.
CT chest ION 02/11/2025-large mass arising from posterior mediastinum with slight enlargement compared to consistent with the patient's known spindle cell neoplasm, spiculated left upper lobe nodule similar in size to December 2024 and a new
1.1 cm posterior left upper lobe nodule worrisome for malignancy, pulmonary emphysema
PET/CT 01/12/25: 1.5 x 0.8 cm right paratracheal lymph node, 1.8 x 1.0 cm right hilar lymph node, left paratracheal lymph node measuring 0.9 x 0.7 cm.� right upper lobe consolidation, 1.8 x 0.8 cm lesion within the left upper lobe, 1.7 cm nodule
within the medial left lower lobe
PFT 04/17/22: FVC 4.37/106%, FEV1 2.52/82%, ratio 58%. No significant BD response. TLC 7.57/115%, RV 2.41/98%, DLCO 11.88/46%, DLCO/VA 1.62/41%. mild obstruction, hyperinflation, moderate reduction in DLCO
PFT 01/14/24: FVC 5/123%, FEV1 2.58/86%, ratio 52%, no significant BD response, TLC 7.87/119%, DLCO 9.92/39%, DLCO/VA 1.45/38%.� Mild obstruction. Severely reduced diffusing opacity.
Spirometry 01/30/25: FEV1 1.96L 65%, FVC 3.55L 87%, ratio 0.55, post FEV1 2.0L 66%, no BD response (moderate obstuction, declined from prior)
HST 02/07/23: SONIA 41.3 events/hour, O2 stephan 72%, 96.3% of the study time spent with O2 below 90%, 9 central apneas.
Echocardiogram 02/03/2025-EF 60-65%, mild mitral regurgitation, moderate aortic regurgitation, PA systolic 35-40
Subjective Data
-
Date of Service:
Date of Service: May 17, 2025
Chief Complaint: Pulmonary Follow Up and Dyspnea Follow Up
Subjective:
feels much improved, less wheezy, requires oxygen with exertion, no chest pain, productive cough or abdominal pain, wants to go home
Review of Systems
General: Other ( Per HPI)
Objective Data
Data Reviewed
Vital Signs / I&O:
Vital Signs
Temp Pulse Resp BP Pulse Ox
97.7 F 86 16 113/61 96
05/16/25 23:00 05/17/25 08:01 05/17/25 08:01 05/17/25 06:00 05/17/25 09:28
Intake and Output
05/16/25 05/17/25 05/18/25
06:59 06:59 06:59
Intake Total 1320 / 1320 300 / 300
Output Total 3250 / 3250 1450 / 1450
Balance -1930 / -1930 -1150 / -1150
SaO2: 96
Nasal Cannula flow liters per minute: 3
Physical Exam
General: Respiratory Distress (n) and Comfortable
HEENT: Normocephalic, Anicteric and Moist Mucous Membranes
Cardiovascular: Regular Rhythm
Respiratory: Wheeze ( few expiratory-much improved), Crackles (n), Rhonchi, Non-Labored Respirations, Accessory Resp Muscle Use (n) and Stridor (n)
GI: Soft, Non Distended and Non Tender
Neurology: Awake, Alert and No Motor Deficits
Skin: Warm, Good Color, Cyanosis (n) and Jaundice (n)
Labs/Micro/Reports
Lab Data
05/17/25 04:27
05/17/25 04:27
Microbiology
05/14/25 12:24 Nasal Swab Influenza Types A & B (ZOFIA) - Final
Negative for Influenza A & B, NAAT
Negative results must be combined with clinical observations
and patient history.
Nucleic Acid Amplification test (NAAT)performed on the
[employer] platform.
--- NOTE | 2025-05-17 10:46 | W.PN.NEPH.PH ---
Today's Communication / Plan
-
lasix
Assessment/Plan
-
70-year-old male with past medical history of hypertension, hyperlipidemia, alcohol use disorder, GI bleed/AVM on endoscopy and CHF presents with shortness of breath. Patient had progressive shortness of breath for the last several days, still
actively smoking cigarettes and drinking alcohol. Patient was noted to be hypoxic, placed on BiPAP with slow improvement he drinks about 5 drinks of alcohol per day both vodka and beer.
Patient was found to have a hemoglobin of 5.5 and a sodium of 118.
Renal consultation for hyponatremia. Patient on hydrochlorothiazide outpatient
Impression.
Hyponatremia.
CHF.
Hypertension.
Symptomatic anemia.
Lung nodules
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
Spiculated left lung mass-nonnecrotizing granuloma-PET scan SUV 3.5-bronchoscopy 03/03/25
COPD
Plan.
Blood transfusion as needed
Fluid restriction
Follow BMP
No further hydrochlorothiazide
lasix today again 40mg IV
CXR later today
wean NC O2 as allowed, or will need home O2
-
-
Date of Service: May 17, 2025
CC / HPI / ROS
-
Chief Complaint:
Hyponatremia
History of Present Illness:
Hemoglobin stable at 8.1
Sodium stable 135
BP stable
on supplemental O2 still
Review of Systems:
No chest pain or shortness of breath
Labs
-
Labs:
WBC 10.7 10^3/uL (4.8-10.8) 05/17/25 04:27
RBC 3.25 10^6/uL (4.70-6.10) L 05/17/25 04:27
Hgb 8.1 g/dL (13.0-18.0) L 05/17/25 04:27
Hct 26.5 % (39.0-52.0) L 05/17/25 04:27
Plt Count 458 10^3/uL (130-400) H 05/17/25 04:27
Sodium 135 mmol/L (135-145) 05/17/25 04:27
Potassium 4.7 mmol/L (3.5-5.1) 05/17/25 04:27
Chloride 104 mmol/L (98-107) 05/17/25 04:27
Carbon Dioxide 27 mmol/L (22-30) 05/17/25 04:27
BUN 15 mg/dl (9-20) 05/17/25 04:27
Creatinine 0.7 mg/dL (0.7-1.3) 05/17/25 04:27
eGFR > 60.00 05/17/25 04:27
Glucose 95 mg/dl (70-99) 05/17/25 04:27
Calcium 8.9 mg/dl (8.4-10.2) 05/17/25 04:27
Phosphorus 4.4 mg/dl (2.5-4.5) 05/14/25 14:50
Mqm-F-Pibhckvuhbr Pept 6360 pg/ml 05/14/25 09:57
Albumin 3.8 g/dl (3.5-5.0) 05/17/25 04:27
Physical Exam
-
Vital Signs:
Vital Signs
Temp Pulse Resp BP Pulse Ox
97.7 F 86 16 113/61 96
05/16/25 23:00 05/17/25 08:01 05/17/25 08:01 05/17/25 06:00 05/17/25 10:45
Cardiovascular:: Regular rate and rhythm
Respiratory:: Bilateral: Coarse
Lung Excursion:: Normal
Abdomen:: Nontender and Soft
Bowel Sounds:: Normal
Extremity Edema:: None: Bilateral:
[2025-05-17] MEDS: ROCEPHIN 1000 MG IV (11:53)
[2025-05-17] MEDS: STERILE WATER FOR INJECTION 10 ML IV (11:53)
[2025-05-17] MEDS: LASIX 40 MG IV ×2 (11:54→16:55)
[2025-05-17] MEDS: FLUSH (NSS) 2 FLUSH IV (11:54)
[2025-05-17] MEDS: ZITHROMAX 500 MG PO (11:54)
--- NOTE | 2025-05-17 16:00 | PTCARENOTE ---
Patient on 3L of 02, SOB on exertion, lungs diminished with some scattered wheezing. Spo2 94%-97%. Patient reports breathing is much better from admission. Received IV lasix 40 mg x2 today. SR on monitor. MSAS scores 0-1. Using urinal
independently. Had BM today. Assist x1 to bathroom. Most likely discharged to home tomorrow.
[2025-05-17] MEDS: VITAMIN B1 100 MG PO (20:11)
--- NOTE | 2025-05-17 20:16 | PTCARENOTE ---
Received pt at change of shift. AAOx3. Lungs coarse on expiration in lower lobes; no wheezing present; TAFOYA. Pulse ox 94% on 2L NC. MSAS 1 for HR in the 90s. MSAS now d/c d/t low scoring for 48 hrs. Pt offers no complaints at this time. Call
sewell within reach.
[2025-05-17] MEDS: TYLENOL 650 MG PO (21:55)
[2025-05-17] MEDS: SENOKOT 8.6 MG PO (21:55)
[2025-05-18 02:51] VITALS: PULSE 2; PULSE 77
[2025-05-18 03:00] VITALS: BMI 26.1
[2025-05-18 04:31] VITALS: BP 104/69
[2025-05-18 04:43] LABS: Hematocrit 26.6 % (39.0-52.0); Hemoglobin 8.1 g/dL (13.0-18.0); Mean Corp Hgb Conc. 30.5 g/dL (33.0-37.0); Mean Corpuscular Volume 80.4 fL (80.0-94.0); Platelet Count 433 10^3/uL (130-400); Red Cell Dist. Width 20.2 % (11.5-14.5)
[2025-05-18 05:06] LABS: ALT (SGPT) 36 U/L (0-50); AST (SGOT) 29 U/L (17-59); Albumin 3.7 g/dl (3.5-5.0); Alkaline Phosphatase 91 U/L (38-126); Blood Urea Nitrogen 17 mg/dl (9-20); Calcium 8.8 mg/dl (8.4-10.2); Carbon Dioxide 28 mmol/L (22-30); Chloride 102 mmol/L (98-107); Estimated Creatinine Clearance 111 ml/min; Glucose 89 mg/dl (70-99); Potassium 4.2 mmol/L (3.5-5.1); Sodium 133 mmol/L (135-145); Total Protein 5.9 g/dl (6.3-8.2); eGFR > 60.00
[2025-05-18] MEDS: PULMICORT 0.5 MG INH (07:43)
[2025-05-18] MEDS: DUONEB 3 ML INH ×2 (07:43→11:32)
[2025-05-18 08:58] VITALS: BP 133/55
--- NOTE | 2025-05-18 09:25 | W.PN.HOSP.TC ---
Today's Communication/Plan
-
Stop Rocephin
Home O2 assessment and D/C home - CM informed
Assessment / Plan
Assessment / Plan
70 yo M, with COPD, current smoker, moderate , daily alcohol use, HLD, HTN came with worsening SOB and severe anemia, mild HFpEF exacerbation improved on steroids, diuresis and blood transfusion. Remained on NC and might need O2 at home. Also
noted hyponatremia, probably 2/2 HCTZ as per stick inserter. ALready follows with for COPD and for HTN. Recommneded to establish outpatient apptointments SHAKIR. GI did not recommend endoscopy, contribbuted anemia 2/2 AVM that most
liekly will chronically bleed. Counseled on alcohol and smoking cessation.
A/P:
#Acute hypoxic respiratory failure
multifactorial: 2/2 severe anemia, COPD exacerbation provoked by smoking, HFpEF exacerbation provoked by alcohol
Switched to oral lAsix, outpatient billing analyst advised
Echo with moderate MTR, moderate , pulmonary HTN, EF 55-60%
COmpleted steroids, 5 days of Rocephin, cont bronchodilators as per pulm, outpatient follow up for bronch
Home O2 assessment
#Severe blood loss anemia 2/2 GIB
#HAILY
Iron
follow CBC weekly
GI followed
cont PPI
no EGD/colonoscopy at this time done
#Hyponatremia
Nephrology follows
Srial BNP
#Nicotine dependency
#Alcohol abuse without withdrawal
Thiamine folate cessation
#Right upper and left upper lobe soft tissue mass calcifications
#sclerosis of the body of T7, seen previously and related to known malignancy
s/p biopsy on 04/10/25
atypical cartilaginous neoplasm
Followed by
#b/l adrenal hyperplasia
no further follow up at this time
DVT ppx SCDs
Full code
I have spent at least 58min reviewing chart, test results, communication with consultants and providing direct patient care
Anticipated Discharge: Within 24 hours
Subjective/Interval History
-
Date of Service: May 18, 2025
Objective Data
-
Labs:
Laboratory Results
05/18/25
04:31
WBC 10.9 H
Hgb 8.1 L
Hct 26.6 L
Plt Count 433 H
Sodium 133 L
Potassium 4.2
Chloride 102
Carbon Dioxide 28
BUN 17
Creatinine 0.6 L
Glucose 89
Calcium 8.8
Total Bilirubin 0.6
AST 29
ALT 36
Alkaline Phosphatase 91
Vital Signs:
Vital Signs
Temp Pulse Resp BP Pulse Ox
98.2 F 91 18 133/55 95
05/18/25 03:00 05/18/25 08:58 05/18/25 07:46 05/18/25 08:58 05/18/25 07:46
I&O
05/17/25 05/18/25 05/19/25
06:59 06:59 06:59
Intake Total 300 / 300 1050 / 1050
Output Total 1450 / 1450 2550 / 2550
Balance -1150 / -1150 -1500 / -1500
Review of Systems
-
History Source: Patient
All other systems: Reviewed and negative
Physical Exam
-
General: No Apparent Distress and Comfortable
HEENT: Normocephalic and Atraumatic
Respiratory: Wheezes
Cardiac: Regular Rhythm
GI: Soft, Nontender and Nondistended
Musculoskeletal: No Clubbing, No Cyanosis and No Edema
Neuro: Awake, Alert, Oriented and AO x 3
Psych: Calm
--- NOTE | 2025-05-18 09:47 | W.DCSUMMARY ---
Discharge Summary
Discharge Data
Date of Admission: 05/14/25
Date of Discharge: 05/18/25
-
Pending Results: No
Hospital Course
70 yo M, with COPD, current smoker, moderate , daily alcohol use, HLD, HTN came with worsening SOB and severe anemia, mild HFpEF exacerbation improved on steroids, diuresis and blood transfusion. Remained on NC and might need O2 at home. Also
noted hyponatremia, probably 2/2 HCTZ as per abrasive grader helper. Already follows with for COPD and for HTN. Recommended to establish outpatient appointments SHAKIR. GI did not recommend endoscopy, contributed anemia 2/2 AVM that most
likely will chronically bleed. Counseled on alcohol and smoking cessation. Home O2 assessment on the day of D/C did not show need for home O2 - remained on RA with pO2>90% both at rest and on ambulation. Medically stable to be d/c home. ASA stopped
as patient has no Hx of cardiac stents. Lasix started -further BP meds mgmt by cardiology as outpatient and lisinopril/HCTZ stopped
I have spent at least 58min reviewing chart, test results, communication with consultants and providing direct patient care
Patient was managed for:
#Acute hypoxic respiratory failure
multifactorial: 2/2 severe anemia,
#COPD exacerbation provoked by smoking
#HFpEF exacerbation provoked by alcohol
#Non-ischemic cardiac injury 2/2 hypoxia and anemia
#Severe blood loss anemia 2/2 GIB
#HAILY
#Hyponatremia
#Nicotine dependency
#Alcohol abuse without withdrawal
#Right upper and left upper lobe soft tissue mass calcifications
#sclerosis of the body of T7, seen previously and related to known malignancy
#b/l adrenal hyperplasia
Discharge Plan
-
Patient Disposition: Home (Routine Discharge)
Discharge Diagnosis/Procedures: COPD, CHF exacerbation, severe anemia
Diet: Low Cholesterol and Low Sodium
Activity: As tolerated
Driving Restrictions: As prior to admission
Blood Work: BMP and CBC in 1 week with family doctor
Referrals:
Denise Colindres, DO [Active, Pulmonary Medicine]
Referral Note: pneumonia, COPD, CHF ,lung nodule
Yuni Velázquez MD [Active, Cardiology] - in less than 1 week
UNKNOWN - PT NOT,INTERVIEWE [Family Provider]
Prescriptions:
New
folic acid 1 mg Tablet
1 mg PO DAILY Qty: 30 0RF
furosemide 40 mg Tablet
40 mg PO DAILY Qty: 30 0RF
pantoprazole 40 mg Tablet,Delayed Release (Dr/Ec)
40 mg PO BID Qty: 60 0RF
thiamine mononitrate (vit B1) 100 mg Tablet
100 mg PO DAILY Qty: 30 0RF
Continued
atorvastatin 40 MG tablet
40 mg PO DAILY
multivitamin Tablet
1 tab PO DAILY
famotidine 20 mg Tablet
20 mg PO DAILY
ferrous sulfate [iron] 325 mg (65 mg iron) Tablet
65 mg PO Q48H@0800
Trelegy Ellipta 100-62.5-25 mcg Blister With Device
1 inh INHALATION R DAILY
acetaminophen 500 mg Tablet
1,000 mg PO Q6HPRN PRN (Reason: mild pain)
albuterol sulfate 90 mcg/actuation Hfa Aerosol Inhaler
2 puff INHALATION R Q6HPRN PRN (Reason: SOB)
B-complex with vitamin C Tablet
1 tab PO DAILY
Discontinued
lisinopril-hydrochlorothiazide 20-12.5 mg Tablet
1 tab PO DAILY
aspirin 81 MG tablet,delayed release (DR/EC)
81 mg PO DAILY
Discharge Orders:
Discharge Patient (As Directed); Ordered 05/18/25
Ordered By: Terence Mauricio
Discharge Date and Time
Print Language: [place]
[2025-05-18] MEDS: NICODERM TRANSDERMAL 14 MG TRANSDERM (10:20)
--- NOTE | 2025-05-18 10:28 | W.PN.PUL3 ---
Today's Communication / Plan
-
Wean oxygen and check home O2 assessment prior to discharge
Transition to home CPAP at time of discharge
Gentle diuresis
Steroids discontinued
Outpatient pulmonary follow-up
Patient being prepared for discharge home today. No additional recommendations at this time. Pulmonary service will now sign off. Please reconsult if there are any additional questions/concerns, or if patient's respiratory status deteriorates.
Assessment
-
70-year-old smoking male with a history of hypertension, hyperlipidemia, alcohol use disorder, GI bleed/AVM on endoscopy and CHF presents with shortness of breath and noted to be hypoxemic requiring BiPAP, severely anemic, and
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
Respiratory failure-acute hypoxemic due to CHF and pneumonia
CHF-preserved EF-carries a lot of fluid in his abdomen and less so in his extremities
Oofkxqytw-pfbebjowb-azovyleg
COPD with acute exacerbation
Diffuse wheezing-combination of COPD and CHF
GI bleed
Leukocytosis-WBC 17.2
Vnbbel-tlszgxdzsu-hfbqecboqb 5.5
Reactive thrombocytosis-platelet 552
Metabolic acidosis
Hyperglycemia
Hyponatremia
Conditions present prior to admission:
Hypertension.
Hyperlipidemia.
GI bleed/AVM on endoscopy.
CHF.
COPD-centrilobular
Daily smoker.
Alcohol use disorder.
NELLY-severe
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
Spiculated left lung mass-nonnecrotizing granuloma-PET scan SUV 3.5-bronchoscopy 03/03/25
PATTIE on BAL 02/16/25-unknown significance-suspect contaminant
Overweight
Fatty liver
Aortic stenosis
Hiatal hernia
Plan
Respiratory status much improved with much less wheezing I suspect due to improved CHF and COPD treatment
Supplemental oxygen as needed-attempt to wean--05/16/2025 ambulatory pulse ox suggests need for home O2
BiPAP prn; has CPAP at home and is compliant
Follow chest x-ray with repeat in 4-6 weeks to assure PNA has resolved/improved
Nebulizers-budesonide and DuoNebs-on Trelegy at home-PFTs summarized below
Has obstructive sleep apnea and is maintained on CPAP-followed by Dr. Denise Smith-sleep study results summarized below
Prior cultures reviewed
Influenza negative
Unable to produce sputum
Empiric antibiotics-ceftriaxone and azithromycin initiated-finished a finite course
Trend WBC
Diuresis as tolerated
Monitor renal function, electrolytes, intake/output, lower extremity edema and weight
Replace electrolytes as needed
Trend sCr and I/O
Echocardiogram 05/14/2025-EF 55-60%, intermediate diastolic function, moderate mitral regurgitation, aortic stenosis with GIDEON 1.2 cm-moderate stenosis
Patient follows with Dr. Manny Velázquez as an outpatient
No longer need to continue trending troponin at the as it peaked at 0.071 on 05/14/2025
Patient told to monitor weight daily and call physician if steady increase in weight as likely a sign of fluid overload
Follow hemoglobin
Transfuse as needed to keep Hb>7g/dL
PPI
GI evaluation ongoing-no urgent need for EGD/colonoscopy as respiratory status tenuous
Abdominal bloating possibly related to fluid retention and aerophagia/gas
Monitor blood sugar with goal >100 and <180mg/dL
Insulin supplementation prn
DVT prophylaxis-mechanical
GI prophylaxis
Nutrition per gastroenterology
Early mobilization
Smoking cessation counseling ongoing
Alcohol cessation counseling also provided
Patient had right upper lobe lung nodule biopsied by Dr. Garcia on 02/16/2025-nonnecrotizing granulomatous inflammation-sarcoidosis suspected, AFB and fungal stains negative, brushings and bronchoalveolar lavage as well as station 4R biopsy were
unrevealing for malignancy
Patient also had needle biopsy of posterior mediastinal mass 04/10/2025-atypical cartilaginous neoplasm favor chondrosarcoma-has appointment with Dr. Rios
Patient follows with Dr. Denise Smith-last seen 01/30/2025-subsequently underwent robotic bronchoscopy and has not followed up in the office post bronchoscopy
Patient being prepared for discharge home today. No additional recommendations at this time. Pulmonary service will now sign off. Thank you for allowing us to be involved in the care of this patient. Please reconsult if there are any additional
questions/concerns, or if patient's respiratory status deteriorates.
Diagnostic data:
Chest x-ray 05/14/2025-CHF with underlying COPD and diffuse pneumonia is difficult to exclude
Chest CT 01/02/22: no PE; moderate emphysema noted, small mediastinal LNs/hilar LNs.
LDCT 02/14/23: No evidence of pulmonary malignancy. Moderate centrilobular emphysema, most prominent in both upper lobes. Atherosclerosis.
LDCT 02/18/24: No discrete focal parenchymal nodule or consolidation. Coronary artery calcifications. Emphysematous changes again seen. Predominantly homogeneous cystic lesion in the posteromedial right chest adjacent to the right side of the thoracic
aorta and thoracic spine, enlarged in size measuring approximately 7 cm in greatest dimension containing some small volume irregular calcification. Some slight progression of some small internal calcification in the adjacent T7 vertebral body. Some
of several differential diagnostic possibilities include duplication cyst, neurenteric cyst, neurogenic cystic tumor, hydatid cyst, cystic sarcoma and cystic teratoma.
CT Chest 12/16/24: redemonstration of a large right-sided paraspinal soft tissue mass at the midthoracic level measuring approximately 8.9 x�7.3 x 9.0�centimeters with internal calcifications increased from prior, sclerosis and mild erosive changes of
the adjacent T7 vertebral body, sclerosis of T6.� Moderate centrilobular emphysema.� 1.7 cm spiculated left upper lobe pulmonary nodule, new from prior.� 2.5 cm right hilar lymphadenopathy, progressed.
CT chest ION 02/11/2025-large mass arising from posterior mediastinum with slight enlargement compared to consistent with the patient's known spindle cell neoplasm, spiculated left upper lobe nodule similar in size to December 2024 and a new
1.1 cm posterior left upper lobe nodule worrisome for malignancy, pulmonary emphysema
PET/CT 01/12/25: 1.5 x 0.8 cm right paratracheal lymph node, 1.8 x 1.0 cm right hilar lymph node, left paratracheal lymph node measuring 0.9 x 0.7 cm.� right upper lobe consolidation, 1.8 x 0.8 cm lesion within the left upper lobe, 1.7 cm nodule
within the medial left lower lobe
PFT 04/17/22: FVC 4.37/106%, FEV1 2.52/82%, ratio 58%. No significant BD response. TLC 7.57/115%, RV 2.41/98%, DLCO 11.88/46%, DLCO/VA 1.62/41%. mild obstruction, hyperinflation, moderate reduction in DLCO
PFT 01/14/24: FVC 5/123%, FEV1 2.58/86%, ratio 52%, no significant BD response, TLC 7.87/119%, DLCO 9.92/39%, DLCO/VA 1.45/38%.� Mild obstruction. Severely reduced diffusing opacity.
Spirometry 01/30/25: FEV1 1.96L 65%, FVC 3.55L 87%, ratio 0.55, post FEV1 2.0L 66%, no BD response (moderate obstuction, declined from prior)
HST 02/07/23: SONIA 41.3 events/hour, O2 stephan 72%, 96.3% of the study time spent with O2 below 90%, 9 central apneas.
Echocardiogram 02/03/2025-EF 60-65%, mild mitral regurgitation, moderate aortic regurgitation, PA systolic 35-40
Total time spent today was 41 minutes for this encounter. Time includes reviewing laboratory test/imaging results, reviewing pertinent medical records, obtaining and reviewing medical history, performing an appropriate exam, ordering medications,
tests and procedures. Time also includes documentation of this encounter, coordinating patient care and communicating with other healthcare professionals. Total time does not include separately billed tests performed on this date of service.
Subjective Data
-
Date of Service:
Date of Service: May 18, 2025
Chief Complaint: Pulmonary Follow Up and Dyspnea Follow Up
Subjective:
Patient seen and evaluated today bedside. Denies shortness of breath or chest pain. Being prepared for discharge today.
Review of Systems
General: Other (Negative unless mentioned above)
Objective Data
Data Reviewed
Vital Signs / I&O / Oxygen:
Vital Signs
Temp Pulse Resp BP Pulse Ox
97.6 F 76 18 133/55 98
05/18/25 10:36 05/18/25 10:00 05/18/25 07:46 05/18/25 08:58 05/18/25 10:36
Intake and Output
05/17/25 05/18/25 05/19/25
06:59 06:59 06:59
Intake Total 300 / 300 1050 / 1050
Output Total 1450 / 1450 2550 / 2550
Balance -1150 / -1150 -1500 / -1500
SaO2 98
Nasal Cannula flow liters per 2
minute
Physical Exam
General: Respiratory Distress (n) and Comfortable
HEENT: Normocephalic, Anicteric and Moist Mucous Membranes
Cardiovascular: Regular Rhythm and Peripheral Edema (n)
Respiratory: Wheeze ( few expiratory-much improved), Crackles (n), Rhonchi (n), Non-Labored Respirations, Accessory Resp Muscle Use (n) and Stridor (n)
GI: Soft, Non Distended, Non Tender and Normal Bowel Sounds
Neurology: Awake, Alert and Tremors (n)
Skin: Warm, Dry, Cyanosis (n) and Jaundice (n)
Labs/Micro/Reports
Lab Data
05/18/25 04:31
05/18/25 04:31
[2025-05-18] MEDS: LIPITOR 40 MG PO (10:29)
[2025-05-18] MEDS: VITAMIN B1 100 MG PO (10:29)
[2025-05-18] MEDS: FOLVITE 1 MG PO (10:29)
[2025-05-18] MEDS: PROTONIX 40 MG PO (10:29)
[2025-05-18] MEDS: ZITHROMAX 500 MG PO (10:30)
[2025-05-18] MEDS: STERILE WATER FOR INJECTION 10 ML IV (10:30)
[2025-05-18] MEDS: ROCEPHIN 1000 MG IV (10:30)
--- NOTE | 2025-05-18 12:08 | PN.CDI ---
Addendum entered and electronically signed by Terence Mauricio MD 05/18/25 13:48:
no sepsis
Original Note:
CDI
- -
CDI:
Physician Documentation Request
Admit Date: 05/14/25 12:05
Dear Doctor,
Please review the following and provide your response in the progress notes.
Clinical Indicators:
The diagnosis of possible Sepsis and pneumonia was documented on 05/16/25 , but is not noted in subsequent documentation.
Pt admitted with Acute Hypoxic Respiratory Failure and Acute CHF exacerbation, Acute HFpEF.
05/16 Progress Note: ' Acute Hypoxic Respiratory Failure
- 2/2 to COPD Exacerbation and CHF Exacerbation, HFpEF +/- Pneumonia...
Elevated white count
Possibly secondary to sepsis with questionable infiltrate versus reactive
Monitor fever curve, white count with antibiotics.'
05/17 Pulmonary: ' Respiratory failure-acute hypoxemic due to CHF and pneumonia...Zokkbileq-dlvismaus-yigsnhxv'
05/18 Progress Note and Discharge Summary: ' Stop Rocephin..Discharge Diagnosis/Procedures: COPD, CHF exacerbation, severe anemia.'
Selected Entries
05/14/25
09:35 05/14/25
12:15 05/14/25
13:45
Pulse 112 100 101
Laboratory Tests
05/14/25 05/16/25
09:57 04:01
WBC 17.2 H 13.7 H
Please clarify the following:
Sepsis and Pneumonia was present on admission and is now resolved.
Pneumonia Only was present on admission and is now resolved.
Sepsis and Pneumonia was ruled out
Other
Use of terms such as suspected, likely, concern for, or probable (associated with a specific diagnosis that is being evaluated, monitored, or treated as if it exists) are acceptable and can be coded in the inpatient setting, when documented at the
time of discharge.
Thank you,
Sherrell Narvaez RN, BSN
CDI Specialist
[place] [place] [facility]
Please use your independent medical judgment in providing your response.
[2025-05-18] MEDS: LASIX IV (12:35)
--- NOTE | 2025-05-18 12:59 | W.PN.NEPH.PH ---
Today's Communication / Plan
-
ok for d/c with lasix
Assessment/Plan
-
70-year-old male with past medical history of hypertension, hyperlipidemia, alcohol use disorder, GI bleed/AVM on endoscopy and CHF presents with shortness of breath. Patient had progressive shortness of breath for the last several days, still
actively smoking cigarettes and drinking alcohol. Patient was noted to be hypoxic, placed on BiPAP with slow improvement he drinks about 5 drinks of alcohol per day both vodka and beer.
Patient was found to have a hemoglobin of 5.5 and a sodium of 118.
Renal consultation for hyponatremia. Patient on hydrochlorothiazide outpatient
Impression.
Hyponatremia.
CHF.
Hypertension.
Symptomatic anemia.
Lung nodules
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
Spiculated left lung mass-nonnecrotizing granuloma-PET scan SUV 3.5-bronchoscopy 03/03/25
COPD
Plan.
hb stable, Blood transfusion as needed
Fluid restriction 48ounces/day
Follow BMP
No further hydrochlorothiazide
cont lasix 40mg daily
BMP in 1week with PCP
d/w pt
-
-
Date of Service: May 18, 2025
CC / HPI / ROS
-
Chief Complaint:
Hyponatremia
History of Present Illness:
Hemoglobin stable at 8.1
Sodium slightly down at 133
BP stable
off supplemental O2
Review of Systems:
No chest pain or shortness of breath
Labs
-
Labs:
WBC 10.9 10^3/uL (4.8-10.8) H 05/18/25 04:31
RBC 3.31 10^6/uL (4.70-6.10) L 05/18/25 04:31
Hgb 8.1 g/dL (13.0-18.0) L 05/18/25 04:31
Hct 26.6 % (39.0-52.0) L 05/18/25 04:31
Plt Count 433 10^3/uL (130-400) H 05/18/25 04:31
Sodium 133 mmol/L (135-145) L 05/18/25 04:31
Potassium 4.2 mmol/L (3.5-5.1) 05/18/25 04:31
Chloride 102 mmol/L (98-107) 05/18/25 04:31
Carbon Dioxide 28 mmol/L (22-30) 05/18/25 04:31
BUN 17 mg/dl (9-20) 05/18/25 04:31
Creatinine 0.6 mg/dL (0.7-1.3) L 05/18/25 04:31
eGFR > 60.00 05/18/25 04:31
Glucose 89 mg/dl (70-99) 05/18/25 04:31
Calcium 8.8 mg/dl (8.4-10.2) 05/18/25 04:31
Phosphorus 4.4 mg/dl (2.5-4.5) 05/14/25 14:50
Egz-D-Lklblagxhdp Pept 2260 pg/ml 05/18/25 04:31
Albumin 3.7 g/dl (3.5-5.0) 05/18/25 04:31
Physical Exam
-
Vital Signs:
Vital Signs
Temp Pulse Resp BP Pulse Ox
97.6 F 76 18 133/55 96
05/18/25 10:36 05/18/25 10:00 05/18/25 07:46 05/18/25 08:58 05/18/25 11:38
Cardiovascular:: Regular rate and rhythm
Respiratory:: Bilateral: CTA
Lung Excursion:: Normal
Abdomen:: Nontender and Soft
Bowel Sounds:: Normal
Extremity Edema:: None: Bilateral:
Morales Catheter: No
--- NOTE | 2025-05-19 17:46 | CM ---
Late Entry for 05/18/25:
Patient with COPD exacerbation, HF exacerbation. Room air. Home O2 Assessment today.
Met with patient who was preparing for discharge.
The patient says he feels ready for discharge home today. IMM completed.
He planned on driving himself home.
No CM d/c needs identified.
Plan home today.
== END 2025-05-18 13:10 | disposition home or self-care (01) | DRG 377 ==
LOC: IMU 12:05
PROVIDERS: Family Medicine; Nurse Practitioner Adult Health; Specialist; ADMITTING PHYSICIAN Internal Medicine; ATTENDING PHYSICIAN Internal Medicine; CONSULT PHYSICIAN Internal Medicine; CONSULT PHYSICIAN Internal Medicine Critical Care Medicine; EMERGENCY PHYSICIAN Emergency Medicine; OTHER PHYSICIAN Internal Medicine Nephrology
PROC: 5A09357 Assistance with Respiratory Ventilation, Less than 24 Consecutive Hours, Continuous Positive Airway Pressure (ICD-10-PCS; 2025-05-15)
DX: K92.2 Gastrointestinal hemorrhage, unspecified (principal); I50.33 Acute on chronic diastolic (congestive) heart failure; J96.01 Acute respiratory failure with hypoxia; J18.9 Pneumonia, unspecified organism; D62 Acute posthemorrhagic anemia; J44.1 Chronic obstructive pulmonary disease with (acute) exacerbation; E87.1 Hypo-osmolality and hyponatremia; J44.0 Chronic obstructive pulmonary disease with (acute) lower respiratory infection; E87.20 Acidosis, unspecified; I11.0 Hypertensive heart disease with heart failure; F17.210 Nicotine dependence, cigarettes, uncomplicated; F10.10 Alcohol abuse, uncomplicated; E27.8 Other specified disorders of adrenal gland; Z79.899 Other long term (current) drug therapy; G47.33 Obstructive sleep apnea (adult) (pediatric); E78.00 Pure hypercholesterolemia, unspecified; Z82.3 Family history of stroke; Z82.49 Family history of ischemic heart disease and other diseases of the circulatory system; Z79.82 Long term (current) use of aspirin; R73.9 Hyperglycemia, unspecified; D75.838 Other thrombocytosis; K76.0 Fatty (change of) liver, not elsewhere classified; E66.3 Overweight; Z68.26 Body mass index [BMI] 26.0-26.9, adult; T50.2X5A Adverse effect of carbonic-anhydrase inhibitors, benzothiadiazides and other diuretics, initial encounter; Z11.52 Encounter for screening for COVID-19
CPT/HCPCS: 71045; 71046; 71260; 74019; 80048; 80053; 80306; 81003; 82010; 82077; 82570; 82607; 82728; 82746; 82805; 82977; 83540; 83550; 83735; 83880; 83935; 84100; 84300; 84443; 84484; 85014; 85018; 85025; 85027; 85610; 85730; 86850; 86900; 86901; 86920; 87502; 87811; 93005; 93306; 94640; 94660; 96365; 96375; 97116; 97163; 97166; 99291; P9016; Q9967

== ENCOUNTER → 2025-05-21 16:06 | Outpatient (REF) | payer MEDICARE, OTHER, SELFPAY ==
[2025-05-21 16:46] LABS: Hematocrit 30.3 % (39.0-52.0); Hemoglobin 8.4 g/dL (13.0-18.0); Mean Corp Hgb Conc. 27.7 g/dL (33.0-37.0); Mean Corpuscular Volume 86.3 fL (80.0-94.0); Platelet Count 558 10^3/uL (130-400); Red Cell Dist. Width 20.7 % (11.5-14.5)
[2025-05-21 16:51] LABS: Blood Urea Nitrogen 25 mg/dl (9-20); Calcium 9.8 mg/dl (8.4-10.2); Carbon Dioxide 27 mmol/L (22-30); Chloride 103 mmol/L (98-107); Glucose 93 mg/dl (70-99); Potassium 5.2 mmol/L (3.5-5.1); Sodium 135 mmol/L (135-145); eGFR > 60.00
[2025-05-21 16:52] LABS: Nucleated Red Blood Cells % 0 % (-)
[2025-05-21 18:51] LABS: Anisocytosis 1+; Hypochromasia 1+; Microcytosis 1+; Normal RBC Morphology No; Ovalocytes 1+
== END ==
LOC: CLAB 16:06
PROVIDERS: ATTENDING PHYSICIAN Family Medicine
DX: J43.2 Centrilobular emphysema (principal); D50.0 Iron deficiency anemia secondary to blood loss (chronic); R22.2 Localized swelling, mass and lump, trunk; I35.0 Nonrheumatic aortic (valve) stenosis; I35.1 Nonrheumatic aortic (valve) insufficiency
CPT/HCPCS: 36415; 80048; 85025

== ENCOUNTER → 2025-05-25 08:48 | Outpatient (REF) | payer MEDICARE, OTHER, SELFPAY ==
[2025-05-25 09:50] LABS: Hematocrit 28.7 % (39.0-52.0); Hemoglobin 8.2 g/dL (13.0-18.0); Mean Corp Hgb Conc. 28.6 g/dL (33.0-37.0); Mean Corpuscular Volume 81.1 fL (80.0-94.0); Nucleated Red Blood Cells % 0 % (-); Platelet Count 735 10^3/uL (130-400); Red Cell Dist. Width 20.2 % (11.5-14.5)
[2025-05-25 10:09] LABS: Iron 23 ug/dl (49-181)
[2025-05-25 10:14] LABS: Blood Urea Nitrogen 16 mg/dl (9-20); Calcium 10.0 mg/dl (8.4-10.2); Carbon Dioxide 27 mmol/L (22-30); Chloride 102 mmol/L (98-107); Glucose 100 mg/dl (70-99); Potassium 5.0 mmol/L (3.5-5.1); Sodium 136 mmol/L (135-145); eGFR > 60.00
[2025-05-25 10:45] LABS: Ferritin 9.4 ng/ml (17.9-464.0)
== END ==
LOC: REG 08:48
PROVIDERS: ATTENDING PHYSICIAN Internal Medicine Hematology & Oncology; FAMILY PHYSICIAN Emergency Medicine; REFERRING PHYSICIAN Internal Medicine Cardiovascular Disease
DX: D75.839 Thrombocytosis, unspecified (principal); D50.9 Iron deficiency anemia, unspecified; D72.829 Elevated white blood cell count, unspecified; C49.9 Malignant neoplasm of connective and soft tissue, unspecified; C78.00 Secondary malignant neoplasm of unspecified lung; E87.1 Hypo-osmolality and hyponatremia
CPT/HCPCS: 36415; 80048; 82728; 83540; 85025

== ENCOUNTER → 2025-06-01 12:21 | Outpatient (REF) | payer MEDICARE, OTHER, SELFPAY ==
[2025-06-01 11:02] LABS: Hematocrit 24.3 % (39.0-52.0); Hemoglobin 7.1 g/dL (13.0-18.0); Mean Corp Hgb Conc. 29.2 g/dL (33.0-37.0); Mean Corpuscular Volume 77.1 fL (80.0-94.0); Platelet Count 553 10^3/uL (130-400); Red Cell Dist. Width 20.1 % (11.5-14.5)
[2025-06-01 12:01] LABS: Vitamin D, 25-OH*** 42.7 ng/mL (30-80)
== END ==
LOC: OIDL 12:21
PROVIDERS: ATTENDING PHYSICIAN Internal Medicine Hematology & Oncology
DX: D75.839 Thrombocytosis, unspecified (principal); D50.9 Iron deficiency anemia, unspecified; D72.829 Elevated white blood cell count, unspecified; C49.9 Malignant neoplasm of connective and soft tissue, unspecified; C78.00 Secondary malignant neoplasm of unspecified lung; R91.8 Other nonspecific abnormal finding of lung field; E55.9 Vitamin D deficiency, unspecified
CPT/HCPCS: 82306; 85025

== ENCOUNTER 2025-06-02 07:37 | Outpatient (RCR) | payer MEDICARE, OTHER, SELFPAY ==
[2025-06-02 08:00] VITALS: BP 127/60
[2025-06-02 08:19] VITALS: BP 127/60
[2025-06-02 08:37] VITALS: BP 141/55
[2025-06-02 10:23] VITALS: BP 135/65
[2025-06-08 10:11] LABS: Hematocrit 33.9 % (39.0-52.0); Hemoglobin 9.8 g/dL (13.0-18.0); Mean Corp Hgb Conc. 28.9 g/dL (33.0-37.0); Mean Corpuscular Volume 89.0 fL (80.0-94.0); Platelet Count 485 10^3/uL (130-400); Red Cell Dist. Width 29.4 % (11.5-14.5)
== END 2025-06-11 23:59 | disposition home or self-care (01) ==
LOC: OID 07:37
PROVIDERS: ATTENDING PHYSICIAN Internal Medicine Hematology & Oncology
DX: C78.00 Secondary malignant neoplasm of unspecified lung (principal); D75.839 Thrombocytosis, unspecified; D50.9 Iron deficiency anemia, unspecified; D72.824 Basophilia; C49.9 Malignant neoplasm of connective and soft tissue, unspecified; R91.8 Other nonspecific abnormal finding of lung field
CPT/HCPCS: 36415; 36430; 84100; 85025; 86850; 86900; 86901; 86920; P9016

== ENCOUNTER → 2025-07-14 07:52 | Outpatient (REF) | payer MEDICARE, OTHER, SELFPAY ==
[2025-07-14 09:36] LABS: Hematocrit 38.6 % (39.0-52.0); Hemoglobin 11.9 g/dL (13.0-18.0); Mean Corp Hgb Conc. 30.8 g/dL (33.0-37.0); Mean Corpuscular Volume 88.1 fL (80.0-94.0); Nucleated Red Blood Cells % 0 % (-); Platelet Count 515 10^3/uL (130-400); Red Cell Dist. Width 24.3 % (11.5-14.5)
[2025-07-14 09:55] LABS: Anisocytosis 1+; Hypochromasia 2+; Normal RBC Morphology No; Polychromasia 1+
[2025-07-14 09:56] LABS: Ovalocytes 1+; Target Cells FEW
[2025-07-14 10:04] LABS: Iron 27 ug/dl (49-181)
[2025-07-14 10:41] LABS: Ferritin 20.0 ng/ml (17.9-464.0)
== END ==
LOC: REG 07:52
PROVIDERS: ATTENDING PHYSICIAN Internal Medicine Hematology & Oncology; FAMILY PHYSICIAN Emergency Medicine
DX: D75.839 Thrombocytosis, unspecified (principal); D50.9 Iron deficiency anemia, unspecified; D72.829 Elevated white blood cell count, unspecified; D49.9 Neoplasm of unspecified behavior of unspecified site; C78.00 Secondary malignant neoplasm of unspecified lung; R91.8 Other nonspecific abnormal finding of lung field
CPT/HCPCS: 36415; 82728; 83540; 85025

== ENCOUNTER → 2025-08-17 07:04 | Outpatient (REF) | payer MEDICARE, OTHER, SELFPAY | LOC: RAD 07:04 | PROVIDERS: ATTENDING PHYSICIAN Internal Medicine Hematology & Oncology; FAMILY PHYSICIAN Emergency Medicine | DX: D50.9 Iron deficiency anemia, unspecified (principal); D72.829 Elevated white blood cell count, unspecified; D75.839 Thrombocytosis, unspecified; C49.9 Malignant neoplasm of connective and soft tissue, unspecified; C78.00 Secondary malignant neoplasm of unspecified lung; R91.8 Other nonspecific abnormal finding of lung field | CPT/HCPCS: 71260; Q9967 ==